=== PATIENT | male | born 1955 | race Caucasian/White ===

== ENCOUNTER 2018-10-29 20:08 | Emergency (ER) | payer OTHER, SELFPAY ==
[2018-10-29 20:09] VITALS: BP 164/99; PULSE 123; RESP 17; TEMP 34.2; O2SAT 96; BMI 37.4
--- NOTE | 2018-10-29 20:26 | CT_ITS ---
STUDY: CT BRAIN WITHOUT CONTRAST REASON FOR EXAM: Male, 63 years old. Fall with head laceration. RADIATION DOSAGE (If Supplied By Facility): CTDIvol = ( 44.99 ) mGy, DLP = ( 812.98 ) mGycm TECHNIQUE: Transaxial CT imaging of the brain was performed without administration of intravenous contrast material. Individualized dose optimization techniques were used for this CT. COMPARISON: Prior head CT exam of March 31, 2017 FINDINGS: Normal soft tissue structures. Normal calvarium. Old fracture deformity of the medial left orbital wall leaving a concave deformity. Normal size ventricles and extra-axial spaces for the patient's age. Normal white matter tracts of the cerebral hemispheres. Normal basal ganglia and thalami. Normal brainstem. Normal cerebellum. Carotid artery calcifications. There is no intracranial hemorrhage. There are no findings of an acute ischemic infarction. Normal visualized paranasal sinuses. CT/Brain/Head without Contrast IMPRESSION: No acute intracranial findings. Negative for hemorrhage, hematoma or mass density. Negative for skull fracture. Mild involutional changes and carotid artery calcification. Old fracture deformity of the left medial orbital wall. Electronically Signed: Griselda Jenkins MD at 20:54 EST , Service support ,
--- NOTE | 2018-10-29 21:38 | ED.DCSUM_ITS ---
- ER Visit Summary Date of Service: 10/29/18 Chief Complaint: Slipped and fell down icy steps with scalp laceration History of Present Illness: The patient is a 63 M history of noncemented diabetes, hypertension, COPD and anxiety. Patient was walking out of his trailer. The steps for IC. He slipped and fell backwards striking the posterior aspect of his scalp on an aluminum door. He is not on blood thinners besides aspirin. He denies any LOC. He has a mild comfort to the back of his head. He denies any significant back or neck pain. He denies any numbness or weakness to his upper or lower extremities. He said he hit his left lower lateral back but has had no hematuria. Patient states his tetanus is up-to-date. He has an appointment to see his doctor tomorrow and will check on that. Physical Examination: Well-appearing older male. Vital signs are stable. He is in no distress. H EENT exam pupils round reactive light. No facial trauma. Patient has about a 5 cm posterior lower scalp laceration. There is no significant bleeding. There is no step-off. It involves the skin and some of the subcu tissue. This will need to be repaired. Neck is nontender. Normal range of motion. Trachea midline. Lungs clear to auscultation. Heart regular rhythm chest wall nontender. No ecchymosis or bruising. No subcu air crepitance. Abdomen soft and nontender. No signs of trauma. No peritoneal signs. LV girdle intact. He is moving all 4 extremities. They are nontender. No deformity. 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 Dorsi plantar flexion intact. Back the cervical, thoracic and lumbar spine are all nontender. He has no bruising on his back. He has mild soft tissue tenderness just below his left ribs. There is no bruising. Neurologically is awake and alert. He is moving all 4 extremities. Is following commands. He is answering questions. He is acting appropriately. His Luis Miguel Coma Scale is 15. Test Results: CT of his brain shows no acute abnormality. There is an old left orbit fracture. However there is no acute skull fracture. No acute intracranial bleed. Read by the radiologist and reviewed by myself. Emergency Department Course and Treatment: Procedure note: Posterior scalp laceration 5 cm. Washed and cleaned by nurse. Washed by me with saline. Explored. Locally anesthetized with 2% Xylocaine. Closed using 7 interrupted jailyn. Patient tolerated procedure well. Repeat neurologic exam he is doing well at 2130. No change. Treatment Plan: Head injury instructions. [place] out in 10 days. Disposition: Discharge Impression: Slipped and fell with closed head injury 5 cm scalp laceration closed by ER using jailyn This note was generated with [employer] dictation software. It may contain incorrect words, spelling, and punctuation that were not noted in review of the chart prior to signing ED Disposition - Plan for ED Patient: Chief Complaint: Laceration Referrals: Amanda Gagnon MD [Primary Care Provider] -
--- NOTE | 2018-10-29 21:38 | ED.DEP ---
ED Disposition - Plan for ED Patient: Chief Complaint: Laceration Instructions: ED Head Injury Closed, ED Laceration Scalp Stitch Or Stap Referrals: Amanda Gagnon MD [Primary Care Provider] - 10 Day for suture removal Additional Instructions: Keep area clean. Ice to your scalp. Tylenol for pain. [place] out in 10 days. Return if severe headache, vomiting or weakness to your upper or lower extremities.
[2018-10-29 22:02] VITALS: BP 123/100; PULSE 87; RESP 14
--- OUTSIDE RECORDS SUMMARY | 2018-12-24 23:44 | XMS RPT_ITS ---
:1955 Author Organization OH[facility] Care Team Providers Name Role Phone TAYLOR, FABI D Referring Unavailable TALAMPAS, FABI D Referring Unavailable NAYE DAVE (PA) Attending Unavailable LYNDSEY SALINAS (FINANCIAL INVESTMENT ADVISER) Attending Unavailable TALAMPAS, FABI D Referring Unavailable TALAMPAS, FABI D Referring Unavailable TALAMPAS, FABI D Attending Unavailable TALAMPAS, FABI D Referring Unavailable TALAMPAS, FABI D Referring Unavailable TALAMPAS, FABI D Attending Unavailable TALAMPAS, FABI D Referring Unavailable TALAMPAS, FABI D Attending Unavailable LYNDSEY SALINAS (FINANCIAL INVESTMENT ADVISER) Attending Unavailable TALAMPAS, FABI D Referring Unavailable Alem Long Attending Unavailable Talampas, Fabi Primary Care Unavailable Talampas, Fabi Primary Care Unavailable Lowell Cisneros Attending Unavailable PROBLEMS PROBLEMS DATE TYPE CONDITION / CODE ATTENDING STATUS SOURCE 09/06/2015 Active Mixed hyperlipidemia NA Active [facility] / E78.2(ICD-10) [place] Repository 08/17/2018 Active Type 2 diabetes NA Active [facility] mellitus with [facility] [place] diabetic Repository polyneuropathy / E11.42(ICD-10) 02/22/2016 Active Chronic obstructive NA Active [facility] pulmonary disease, [place] unspecified / Repository J44.9(ICD-10) 10/30/2015 Active Essential (primary) NA Active [facility] hypertension / [place] I10(ICD-10) Repository 01/08/2018 Active Type 2 diabetes NA Active [facility] mellitus with [facility] [place] hyperglycemia / Repository E11.65(ICD-10) 01/08/2018 Active Other intermediate manager NA Active [facility] (current) drug [place] therapy / Repository Z79.899(ICD-10) PROCEDURES PROCEDURES No Procedure Records FoundRESULTS RESULTS PROGRESS Observed: 11/09/2018 Status: COMPLETED Source: [place] 3:51 PM [facility] RE[facility]IT[facility] HNO ID: [id number] Author: Lyndsey (Water Treatment Specialist) Brad Service: (none) Author Type: Nurse Specialist Type: Progress Notes Filed: 11/09/2018 4:02 PM Note Text: OUTPATIENT VISIT DATE November 09, 2018 OUTPATIENT VISIT TYPE ESTABLISHED PRIMARY CARE PHYSICIAN: Fabi Gagnon MD CHIEF COMPLAINT: Patient presents with: Hospital F/U History of Present Illness: Britney West is a 63 year old male who was last seen October 30, 2018 by Fabi Gagnon MD. He has been seen in the past for ACTIVE PROBLEM LIST Backache, Unspecified Copd With Chronic Bronchitis (Hcc) Degeneration of Lumbar Or Lumbosacral Intervertebral Disc Essential Hypertension Hyperlipidemia, Mixed Unspecified Sleep Apnea Hypertrophy of Prostate With Urinary Obstruction and Other Lower Urinary Tract Symptoms (Luts) Anxiety Metabolic Syndrome Diabetic Peripheral Neuropathy (Hcc) Pain Disorder With Psychological Component Reactive Depression Smoker Obesity (Bmi 30-39.9) He was seen at [facility] on October 29, 2018. Reports falling down icy steps and hitting his head. He fell backwards and struck the posterior aspect of the scalp on aluminum door. No loss of consciousness. Mild discomfort on the back of the head. No neck or head pain. No numbness or tingling in extremities is noted. No reported neurological deficits. He reports hitting his left lower back. Exam was unremarkable except for laceration on posterior aspect of his scalp approximately 5 cm in length. Cleansed in the ER with saline. 6 radiation completed. Locally anesthetized with 2% Xylocaine. Close using [address] brain showed no acute abnormality. Since the last visit, he states that he is feeling well. He is without focal neurological deficits, no vision or hearing difficulties, no difficulty moving extremities, no change in level of consciousness. Without headache. No drainage from the laceration is noted. No fever or chills. No recent hospital or ED visits. No new medical problems or medications. Able to obtain medications. No problems with taking medications or note side effects. PAST MEDICAL HISTORY Diagnosis Date - Alcohol abuse 2006(stopped) in remission - Benign neoplasm of colon - Carpal tunnel syndrome - Carpal tunnel syndrome, right 01/23/2012 - Cocaine abuse (HCC) 2006 (stopped) In remission - Degeneration of lumbar or lumbosacral intervertebral disc - Depressive disorder, not elsewhere classified - Dermatophytosis of foot 01/19/2008 - Diabetes mellitus type 2 in obese (HCC) - Family history of malignant neoplasm of gastrointestinal tract - Frequency of urination 05/24/2014 - Hemorrhage of gastrointestinal tract, unspecified - History of pancreatitis 05/10/2014 States no longer drinks. Hx pancreatic pseudocysts- CT 2010 - Hyperplasia of prostate - Lateral epicondylitis of both elbows 02/13/2015 - Obesity, Class III, BMI >= 40 (morbid obesity) E66.01 05/12/2017 - SAAD (obstructive sleep apnea) 2013 CPAP therapy - Other specified disorder of rectum and anus 12/05/2008 - PMH - PAST MEDICAL HISTORY OF macular degeration - PMH - PAST MEDICAL HISTORY OF CTS - Urinary retention 05/24/2014 PAST SURGICAL HISTORY Procedure Laterality Date - COLONOS W/REM POLYP SNARE 09/02/08 two small polyps rectum - ablated - COLONOSCOP W/ OR W/O [facility] SPEC 01/30/00 Colonoscopy - COLONOSCOP W/ OR W/O [facility] SPEC 08/06/2013 Colonoscopy - LAMINECTOMY,LUMBAR Laminectomy, lumbar - REMV CATARACT EXTRACAP,INSERT LENS Left 03/2015 Cataract Extraction with PC IOL - REVISE MEDIAN N/CARPAL TUNNEL SURG 2012 Carpal tunnel decomp left FAMILY HISTORY Problem Relation Age of Onset - Cancer Mother - Colon Cancer Father - Diabetes Father - Multiple Sclerosis Brother - Multiple Sclerosis Brother - Cancer Sister liver - Cancer Brother lung Social History Substance Use Topics - Smoking status: Current Every Day Smoker Packs/day: 2.00 Years: 43.00 Types: Cigarettes Start date: 12/01/1965 - Smokeless tobacco: Never Used Comment: STOPPED nicotine patch - Alcohol use No Comment: occasional ALLERGIES: ALLERGIES Allergen Reactions - Cipro [Ciprofloxaci* - Duloxetine Other: See Comments Caused severe Vertigo, increased his BS - Simvastatin Other: See Comments Myalgia. - Venlafaxine Other: See Comments Chewing on his tongue MEDICATIONS blood sugar diagnostic (ONETOUCH ULTRA TEST) test strip 1 Strip three times daily. Test blood sugar(s) 3 times daily. Dx: E11.65 Insulin: No. Uncontrolled/ fluctuating sugar. glipiZIDE (GLUCOTROL XL) 10mg 24 hr tablet Take 1 tablet by mouth once daily. buPROPion SR (WELLBUTRIN SR) 150 mg 12 hr tablet Take 1 tablet by mouth twice daily. umeclidinium-vilanterol (ANORO ELLIPTA) 62.5-25 mcg/actuation inhaler Inhale 1 Inhalation as instructed once daily. lisinopril (ZESTRIL, PRINIVIL) 10 mg tablet Take 1 tablet by mouth once daily. gabapentin (NEURONTIN) 300 mg capsule Take 1 capsule by mouth three times daily. cyclobenzaprine (FLEXERIL) 10 mg tablet Take 1 tablet by mouth three times daily as needed for Muscle Spasm. metFORMIN ER (GLUCOPHAGE XR) 500 mg 24 hr tablet 1000 mg at breakfast and supper VENTOLIN HFA 90 mcg/actuation inhaler Inhale 2 Puffs as instructed every 4 hours as needed. traMADol (ULTRAM) 50 mg tablet Take 1 tablet by mouth every 6 hours as needed for Pain. naproxen (NAPROSYN) 500 mg tablet Take 1 tablet by mouth twice daily with meals. Take with food. diazePAM (VALIUM) 5 mg tablet Take 1 tablet by mouth every 6 hours as needed. CPAP Initiate CPAP @ 17 cm of water with humidification. Mask (per patient preference) optional chin strap (if indicated) , filters, tubing, humidifier and lifetime supplies. multivitamin tablet Take 1 tablet by mouth once daily. Cholecalciferol, Vitamin D3, 5,000 unit cap Take 10,000 Units by mouth once daily. Lancets (ONE TOUCH ULTRASOFT LANCETS) lancets Test blood sugar(s) 1 times daily. Dx: 250.00, Insulin: No naftifine (NAFTIN) 2 % crea Apply 1 application to affected area once daily. Blood-Glucose Meter (ONE TOUCH ULTRA SYSTEM KIT) monitoring kit 1 Each three times daily. (For uncontrolled/variable sugars 250.02) REVIEW OF SYSTEMS: GENERAL: Negative for: Weight loss or gain, Fever or Chills, Weakness and Sleep difficulties. Physical Examination: BP 130/70 Pulse 100 Resp 16 Wt 253 lb (114.8kg) BP w/Orthostatic Vitals Date and Time Orthostatic BP Orthostatic Pulse BP Pulse BP Position BP Site BP Cuff Size 11/09/18 1518 -- -- 130/70 100 Sitting Left Arm Regular Adult Peak Flow Date and Time PF Resp 11/09/18 1518 -- 16 General appearance: Well appearing, alert, in no acute distress, well-hydrated, well nourished. Skin: Skin color, texture, turgor normal, no suspicious rashes _ well healed laceration posterior scalp 5 cm in length, [address], scab covers length, no surrounding erythema, warmth, drainage or tenderness to palpation Peripheral pulses: Normal Neuro: Gait normal. Sensation grossly intact. Reviewed chart, outside records, tests I personally interviewed, confirmed and edited the above information if obtained by others. TESTING: Glucose (mg/dL) Date Value 08/17/2018 115 Potassium (mmol/L) Date Value 08/17/2018 4.3 Sodium (mmol/L) Date Value 08/17/2018 139 Chloride (mmol/L) Date Value 08/17/2018 103 CO2 (mmol/L) Date Value 08/17/2018 21 Creatinine (mg/dL) Date Value 08/17/2018 0.85 BUN (mg/dL) Date Value 08/17/2018 17 Anion Gap (mmol/L) Date Value 08/17/2018 15 Calcium (mg/dL) Date Value 08/17/2018 9.0 Glucose (mg/dL) Date Value 08/17/2018 115 Potassium (mmol/L) Date Value 08/17/2018 4.3 Sodium (mmol/L) Date Value 08/17/2018 139 Chloride (mmol/L) Date Value 08/17/2018 103 CO2 (mmol/L) Date Value 08/17/2018 21 Creatinine (mg/dL) Date Value 08/17/2018 0.85 BUN (mg/dL) Date Value 08/17/2018 17 Anion Gap (mmol/L) Date Value 08/17/2018 15 Calcium (mg/dL) Date Value 08/17/2018 9.0 Protein, Total (g/dL) Date Value 08/17/2018 6.8 Albumin (g/dL) Date Value 08/17/2018 4.1 Bilirubin, Total (mg/dL) Date Value 08/17/2018 0.2 Alkaline Phosphatase (U/L) Date Value 08/17/2018 73 AST (U/L) Date Value 08/17/2018 27 ALT (U/L) Date Value 08/17/2018 36 Hemoglobin (g/dL) Date Value 02/24/2017 15.4 Hematocrit (%) Date Value 02/24/2017 48.0 WBC (k/uL) Date Value 02/24/2017 10.56 Cholesterol, Total (mg/dL) Date Value 08/30/2017 171 Total Cholesterol, Nonfasting (mg/dL) Date Value 08/17/2018 158 HDL Cholesterol (mg/dL) Date Value 08/30/2017 27 HDL Cholesterol, Nonfasting (mg/dL) Date Value 08/17/2018 28 LDL Cholesterol (mg/dL) Date Value 08/30/2017 110 LDL Cholesterol, Nonfasting (mg/dL) Date Value 08/17/2018 95 Triglyceride (mg/dL) Date Value 08/30/2017 170 Triglycerides, Nonfasting (mg/dL) Date Value 08/17/2018 173 Hemoglobin A1C Date Value Ref Range Status 08/17/2018 7.1 (H) 4.3 - 5.6 % Final 04/28/2018 7.0 (H) 4.3 - 5.6 % Final 01/08/2018 7.8 (H) 4.3 - 5.6 % Final 08/30/2017 11.0 (H) 4.3 - 5.6 % Final Comment: Stateless Diabetes Association guidelines indicate that patients with HgbA1c in the range 5.7-6.4% are at increased risk for development of diabetes, and intervention by lifestyle modification may be beneficial. HgbA1c greater or equal to 6.5% is considered diagnostic of diabetes. 05/09/2017 7.9 (H) 4.3 - 5.6 % Final Comment: Stateless Diabetes Association guidelines indicate that patients with HgbA1c in the range 5.7-6.4% are at increased risk for development of diabetes, and intervention by lifestyle modification may be beneficial. HgbA1c greater or equal to 6.5% is considered diagnostic of diabetes. Ejection Fraction: No results found IMPRESSION: Mr. West is a 63 year old man presents for staple removal posterior scalp After my examination and review of data, I make the following recommendations. PLAN AND RECOMMENDATIONS: 1. Laceration of scalp, subsequent encounter - ICD9: V58.89, 873.0, ICD10: S01.01XD Well healed. [place] removed without difficulty, tolerated well. No need for topical treatments such as antibacterial ointment. May wash and dry gently with shampoo and water He will let us know if any drainage, increased tenderness, fever. This is not expected to occur. Advised to go to ER if develops chest pain, shortness of breath, or severe worsening of symptoms. Discussed risks, benefits, alternatives, and potential side effects of medications. Mr. West expressed understanding and agreed with the plan. Lyndsey Salinas APRN.FINANCIAL INVESTMENT ADVISER CNOV Observed: 11/09/2018 Status: COMPLETED Source: [place] 3:[address] [facility] [place] RE[facility]IT[facility] Office Visit (INTMWS) BRITNEY WEST ([id number]) 1955 M NFR Date Time Provider Department 11/09/18 3:20 PM LYNDSEY SALINAS (FINANCIAL INVESTMENT ADVISER) INTMWS During your visit today, we recorded the following information about you: Pulse Respiration Blood pressure Weight 100/minute 16/minute 130/70 114.8 kg Lyndsey Salinas APRN.CNS 11/09/2018 4:02 PM Signed OUTPATIENT VISIT DATE November 09, 2018 OUTPATIENT VISIT TYPE ESTABLISHED PRIMARY CARE PHYSICIAN: Fabi Gagnon MD CHIEF COMPLAINT: Patient presents with: Hospital F/U History of Present Illness: Britney West is a 63 year old male who was last seen October 30, 2018 by Fabi Gagnon MD. He has been seen in the past for ACTIVE PROBLEM LIST Backache, Unspecified Copd With Chronic Bronchitis (Hcc) Degeneration of Lumbar Or Lumbosacral Intervertebral Disc Essential Hypertension Hyperlipidemia, Mixed Unspecified Sleep Apnea Hypertrophy of Prostate With Urinary Obstruction and Other Lower Urinary Tract Symptoms (Luts) Anxiety Metabolic Syndrome Diabetic Peripheral Neuropathy (Hcc) Pain Disorder With Psychological Component Reactive Depression Smoker Obesity (Bmi 30-39.9) He was seen at [facility] on October 29, 2018. Reports falling down icy steps and hitting his head. He fell backwards and struck the posterior aspect of the scalp on aluminum door. No loss of consciousness. Mild discomfort on the back of the head. No neck or head pain. No numbness or tingling in extremities is noted. No reported neurological deficits. He reports hitting his left lower back. Exam was unremarkable except for laceration on posterior aspect of his scalp approximately 5 cm in length. Cleansed in the ER with saline. 6 radiation completed. Locally anesthetized with 2% Xylocaine. Close using [address] brain showed no acute abnormality. Since the last visit, he states that he is feeling well. He is without focal neurological deficits, no vision or hearing difficulties, no difficulty moving extremities, no change in level of consciousness. Without headache. No drainage from the laceration is noted. No fever or chills. No recent hospital or ED visits. No new medical problems or medications. Able to obtain medications. No problems with taking medications or note side effects. PAST MEDICAL HISTORY Diagnosis Date - Alcohol abuse 2006(stopped) in remission - Benign neoplasm of colon - Carpal tunnel syndrome - Carpal tunnel syndrome, right 01/23/2012 - Cocaine abuse (HCC) 2006 (stopped) In remission - Degeneration of lumbar or lumbosacral intervertebral disc - Depressive disorder, not elsewhere classified - Dermatophytosis of foot 01/19/2008 - Diabetes mellitus type 2 in obese (HCC) - Family history of malignant neoplasm of gastrointestinal tract - Frequency of urination 05/24/2014 - Hemorrhage of gastrointestinal tract, unspecified - History of pancreatitis 05/10/2014 States no longer drinks. Hx pancreatic pseudocysts- CT 2010 - Hyperplasia of prostate - Lateral epicondylitis of both elbows 02/13/2015 - Obesity, Class III, BMI >= 40 (morbid obesity) E66.01 05/12/2017 - SAAD (obstructive sleep apnea) 2013 CPAP therapy - Other specified disorder of rectum and anus 12/05/2008 - PMH - PAST MEDICAL HISTORY OF macular degeration - PMH - PAST MEDICAL HISTORY OF CTS - Urinary retention 05/24/2014 PAST SURGICAL HISTORY Procedure Laterality Date - COLONOS W/REM POLYP SNARE 09/02/08 two small polyps rectum - ablated - COLONOSCOP W/ OR W/O [facility] SPEC 01/30/00 Colonoscopy - COLONOSCOP W/ OR W/O [facility] SPEC 08/06/2013 Colonoscopy - LAMINECTOMY,LUMBAR Laminectomy, lumbar - REMV CATARACT EXTRACAP,INSERT LENS Left 03/2015 Cataract Extraction with PC IOL - REVISE MEDIAN N/CARPAL TUNNEL SURG 2012 Carpal tunnel decomp left FAMILY HISTORY Problem Relation Age of Onset - Cancer Mother - Colon Cancer Father - Diabetes Father - Multiple Sclerosis Brother - Multiple Sclerosis Brother - Cancer Sister liver - Cancer Brother lung Social History Substance Use Topics - Smoking status: Current Every Day Smoker Packs/day: 2.00 Years: 43.00 Types: Cigarettes Start date: 12/01/1965 - Smokeless tobacco: Never Used Comment: STOPPED nicotine patch - Alcohol use No Comment: occasional ALLERGIES: ALLERGIES Allergen Reactions - Cipro [Ciprofloxaci* - Duloxetine Other: See Comments Caused severe Vertigo, increased his BS - Simvastatin Other: See Comments Myalgia. - Venlafaxine Other: See Comments Chewing on his tongue MEDICATIONS blood sugar diagnostic (ONETOUCH ULTRA TEST) test strip 1 Strip three times daily. Test blood sugar(s) 3 times daily. Dx: E11.65 Insulin: No. Uncontrolled/ fluctuating sugar. glipiZIDE (GLUCOTROL XL) 10mg 24 hr tablet Take 1 tablet by mouth once daily. buPROPion SR (WELLBUTRIN SR) 150 mg 12 hr tablet Take 1 tablet by mouth twice daily. umeclidinium-vilanterol (ANORO ELLIPTA) 62.5-25 mcg/actuation inhaler Inhale 1 Inhalation as instructed once daily. lisinopril (ZESTRIL, PRINIVIL) 10 mg tablet Take 1 tablet by mouth once daily. gabapentin (NEURONTIN) 300 mg capsule Take 1 capsule by mouth three times daily. cyclobenzaprine (FLEXERIL) 10 mg tablet Take 1 tablet by mouth three times daily as needed for Muscle Spasm. metFORMIN ER (GLUCOPHAGE XR) 500 mg 24 hr tablet 1000 mg at breakfast and supper VENTOLIN HFA 90 mcg/actuation inhaler Inhale 2 Puffs as instructed every 4 hours as needed. traMADol (ULTRAM) 50 mg tablet Take 1 tablet by mouth every 6 hours as needed for Pain. naproxen (NAPROSYN) 500 mg tablet Take 1 tablet by mouth twice daily with meals. Take with food. diazePAM (VALIUM) 5 mg tablet Take 1 tablet by mouth every 6 hours as needed. CPAP Initiate CPAP @ 17 cm of water with humidification. Mask (per patient preference) optional chin strap (if indicated) , filters, tubing, humidifier and lifetime supplies. multivitamin tablet Take 1 tablet by mouth once daily. Cholecalciferol, Vitamin D3, 5,000 unit cap Take 10,000 Units by mouth once daily. Lancets (ONE TOUCH ULTRASOFT LANCETS) lancets Test blood sugar(s) 1 times daily. Dx: 250.00, Insulin: No naftifine (NAFTIN) 2 % crea Apply 1 application to affected area once daily. Blood-Glucose Meter (ONE TOUCH ULTRA SYSTEM KIT) monitoring kit 1 Each three times daily. (For uncontrolled/variable sugars 250.02) REVIEW OF SYSTEMS: GENERAL: Negative for: Weight loss or gain, Fever or Chills, Weakness and Sleep difficulties. Physical Examination: BP 130/70 Pulse 100 Resp 16 Wt 253 lb (114.8kg) BP w/Orthostatic Vitals Date and Time Orthostatic BP Orthostatic Pulse BP Pulse BP Position BP Site BP Cuff Size 11/09/181517 -- -- 130/70 100 Sitting Left Arm Regular Adult Peak Flow Date and Time PF Resp 11/09/181517 -- 16 General appearance: Well appearing, alert, in no acute distress, well-hydrated, well nourished. Skin: Skin color, texture, turgor normal, no suspicious rashes _ well healed laceration posterior scalp 5 cm in length, [address], scab covers length, no surrounding erythema, warmth, drainage or tenderness to palpation Peripheral pulses: Normal Neuro: Gait normal. Sensation grossly intact. Reviewed chart, outside records, tests I personally interviewed, confirmed and edited the above information if obtained by others. TESTING: Glucose (mg/dL) Date Value 08/17/2018 115 Potassium (mmol/L) Date Value 08/17/2018 4.3 Sodium (mmol/L) Date Value 08/17/2018 139 Chloride (mmol/L) Date Value 08/17/2018 103 CO2 (mmol/L) Date Value 08/17/2018 21 Creatinine (mg/dL) Date Value 08/17/2018 0.85 BUN (mg/dL) Date Value 08/17/2018 17 Anion Gap (mmol/L) Date Value 08/17/2018 15 Calcium (mg/dL) Date Value 08/17/2018 9.0 Glucose (mg/dL) Date Value 08/17/2018 115 Potassium (mmol/L) Date Value 08/17/2018 4.3 Sodium (mmol/L) Date Value 08/17/2018 139 Chloride (mmol/L) Date Value 08/17/2018 103 CO2 (mmol/L) Date Value 08/17/2018 21 Creatinine (mg/dL) Date Value 08/17/2018 0.85 BUN (mg/dL) Date Value 08/17/2018 17 Anion Gap (mmol/L) Date Value 08/17/2018 15 Calcium (mg/dL) Date Value 08/17/2018 9.0 Protein, Total (g/dL) Date Value 08/17/2018 6.8 Albumin (g/dL) Date Value 08/17/2018 4.1 Bilirubin, Total (mg/dL) Date Value 08/17/2018 0.2 Alkaline Phosphatase (U/L) Date Value 08/17/2018 73 AST (U/L) Date Value 08/17/2018 27 ALT (U/L) Date Value 08/17/2018 36 Hemoglobin (g/dL) Date Value 02/24/2017 15.4 Hematocrit (%) Date Value 02/24/2017 48.0 WBC (k/uL) Date Value 02/24/2017 10.56 Cholesterol, Total (mg/dL) Date Value 08/30/2017 171 Total Cholesterol, Nonfasting (mg/dL) Date Value 08/17/2018 158 HDL Cholesterol (mg/dL) Date Value 08/30/2017 27 HDL Cholesterol, Nonfasting (mg/dL) Date Value 08/17/2018 28 LDL Cholesterol (mg/dL) Date Value 08/30/2017 110 LDL Cholesterol, Nonfasting (mg/dL) Date Value 08/17/2018 95 Triglyceride (mg/dL) Date Value 08/30/2017 170 Triglycerides, Nonfasting (mg/dL) Date Value 08/17/2018 173 Hemoglobin A1C Date Value Ref Range Status 08/17/2018 7.1 (H) 4.3 - 5.6 % Final 04/28/2018 7.0 (H) 4.3 - 5.6 % Final 01/08/2018 7.8 (H) 4.3 - 5.6 % Final 08/30/2017 11.0 (H) 4.3 - 5.6 % Final Comment: Stateless Diabetes Association guidelines indicate that patients with HgbA1c in the range 5.7-6.4% are at increased risk for development of diabetes, and intervention by lifestyle modification may be beneficial. HgbA1c greater or equal to 6.5% is considered diagnostic of diabetes. 05/09/2017 7.9 (H) 4.3 - 5.6 % Final Comment: Stateless Diabetes Association guidelines indicate that patients with HgbA1c in the range 5.7-6.4% are at increased risk for development of diabetes, and intervention by lifestyle modification may be beneficial. HgbA1c greater or equal to 6.5% is considered diagnostic of diabetes. Ejection Fraction: No results found IMPRESSION: Mr. West is a 63 year old man presents for staple removal posterior scalp After my examination and review of data, I make the following recommendations. PLAN AND RECOMMENDATIONS: 1. Laceration of scalp, subsequent encounter - ICD9: V58.89, 873.0, ICD10: S01.01XD Well healed. [place] removed without difficulty, tolerated well. No need for topical treatments such as antibacterial ointment. May wash and dry gently with shampoo and water He will let us know if any drainage, increased tenderness, fever. This is not expected to occur. Advised to go to ER if develops chest pain, shortness of breath, or severe worsening of symptoms. Discussed risks, benefits, alternatives, and potential side effects of medications. Mr. West expressed understanding and agreed with the plan. Lyndsey Salinas APRN.FINANCIAL INVESTMENT ADVISER Referring Provider: FABI GAGNON [[id number]] Allergies As of Date: 11/09/2018 Noted Allergy Reaction CIPRO (CIPROFLOXACIN) 02/27/2006 DULOXETINE 04/18/2017 14 - Other: See Comments Comments: Caused severe Vertigo, increased his BS SIMVASTATIN 07/05/2013 14 - Other: See Comments Comments: Myalgia. VENLAFAXINE 03/06/2015 14 - Other: See Comments Comments: Chewing on his tongue Date Reviewed: 11/09/2018 Reviewed by: Michaela Leggett LPN - Fully Assessed Reason for Visit: Hospital F/U [57] Primary Visit Diagnosis:Laceration of scalp, subsequent encounter [S01.01XD] Prescriptions as of 11/09/2018 Sig: BLOOD SUGAR DIAGNOSTIC STRIPS 1 Strip three times daily. Te* GLIPIZIDE ER 10 MG TABLET, EX* Take 1 tablet by mouth once d* BUPROPION HCL SR 150 MG TABLE* Take 1 tablet by mouth twice * UMECLIDINIUM 62.5 MCG-VILANTE* Inhale 1 Inhalation as instru* LISINOPRIL 10 MG TABLET Take 1 tablet by mouth once d* GABAPENTIN 300 MG CAPSULE Take 1 capsule by mouth three* CYCLOBENZAPRINE 10 MG TABLET Take 1 tablet by mouth three * METFORMIN ER 500 MG TABLET,EX* 1000 mg at breakfast and supp* VENTOLIN HFA 90 MCG/ACTUATION* Inhale 2 Puffs as instructed * TRAMADOL 50 MG TABLET Take 1 tablet by mouth every * NAPROXEN 500 MG TABLET Take 1 tablet by mouth twice * DIAZEPAM 5 MG TABLET Take 1 tablet by mouth every * CPAP Initiate CPAP @ 17 cm of wate* MULTIVITAMIN TABLET Take 1 tablet by mouth once d* CHOLECALCIFEROL (VITAMIN D3) * Take 10,000 Units by mouth on* LANCETS Test blood sugar(s) 1 times * NAFTIFINE 2 % TOPICAL CREAM Apply 1 application to affect* BLOOD-GLUCOSE METER KIT 1 Each three times daily. (Fo* Problem List As Of Date 11/09/2018 Noted Resolved BACKACHE NOS [M54.9] INVALID FOR* COPD with chronic bronchitis (HCC) [J44.9] INVALID FOR* LUMB/LUMBOSAC DISC DEGEN [M51.37] INVALID FOR* Other Abnormal Glucose [R73.09] INVALID FOR*07/06/2010 Thoracic or Lumbosacral Neuritis or Radiculitis*INVALID FOR*04/10/2010 Pain in Joint, Lower Leg [M25.569] INVALID FOR*04/10/2010 Essential hypertension [I10] INVALID FOR* Hyperlipidemia, mixed [E78.2] INVALID FOR* More... SLEEP APNEA NOS [G47.30] INVALID FOR* Pruritus Ani [L29.0] INVALID FOR*04/10/2010 Anal or Rectal Pain [K62.89] INVALID FOR*04/10/2010 Other Symptoms Involving Digestive System [R19.*INVALID FOR*04/10/2010 Blood in Stool [K92.1] INVALID FOR*04/10/2010 BPH W URINARY OBS/LUTS [N40.1] INVALID FOR* Anxiety [F41.9] INVALID FOR* Metabolic Syndrome [E88.81] INVALID FOR* Abnormal CXR (chest x-ray) [R93.89] INVALID FOR*01/06/2012 Syncope [R55] INVALID FOR*01/06/2012 Carpal tunnel syndrome, left [G56.02] INVALID FOR*02/24/2012 Diabetic peripheral neuropathy [E11.42] INVALID FOR* Diabetes mellitus type 2, uncontrolled, without*INVALID FOR*10/30/2018 More... Pain disorder with psychological component [F45*INVALID FOR* Reactive depression [F32.9] INVALID FOR* Smoker [F17.200] INVALID FOR* Obesity (BMI 30-39.9) [E66.9] INVALID FOR* Encounter Status:Closed by LYNDSEY PUCKETT on 11/09/18 PROGRESS Observed: 10/30/2018 Status: COMPLETED Source: [facility] 4:24 PM [facility] HNO ID: [id number] Author: Fabi Gagnon Service: (none) Author Type: Physician Type: Progress Notes Filed: 11/15/2018 10:03 PM Note Text: Patient presents with: Recheck: Follow up SUBJECTIVE: Britney West is a 63 year old year old gentleman here today for 3 month follow up appointment for review of medical conditions. Laceration scalp. Hurts right lateral abdomen (below ribs) Depression issues. Tearful more easily--able to be okay in a couple minutes. Emotional. A little better with motivation to get things done now. Sleep 6 to 7 hours of sleep. Has to get up 4AM. Long weeks. Able to fall asleep well. PAST MEDICAL HISTORY Diagnosis Date - Alcohol abuse 2006(stopped) in remission - Benign neoplasm of colon - Carpal tunnel syndrome - Carpal tunnel syndrome, right 01/23/2012 - Cocaine abuse (HCC) 2006 (stopped) In remission - Degeneration of lumbar or lumbosacral intervertebral disc - Depressive disorder, not elsewhere classified - Dermatophytosis of foot 01/19/2008 - Diabetes mellitus type 2 in obese (HCC) - Family history of malignant neoplasm of gastrointestinal tract - Frequency of urination 05/24/2014 - Hemorrhage of gastrointestinal tract, unspecified - History of pancreatitis 05/10/2014 States no longer drinks. Hx pancreatic pseudocysts- CT 2010 - Hyperplasia of prostate - Lateral epicondylitis of both elbows 02/13/2015 - Obesity, Class III, BMI >= 40 (morbid obesity) E66.01 05/12/2017 - SAAD (obstructive sleep apnea) 2013 CPAP therapy - Other specified disorder of rectum and anus 12/05/2008 - PMH - PAST MEDICAL HISTORY OF macular degeration - PMH - PAST MEDICAL HISTORY OF CTS - Urinary retention 05/24/2014 Current Outpatient Prescriptions: glipiZIDE (GLUCOTROL XL) 10mg 24 hr tablet Take 1 tablet by mouth once daily. buPROPion SR (WELLBUTRIN SR) 150 mg 12 hr tablet Take 1 tablet by mouth twice daily. umeclidinium-vilanterol (ANORO ELLIPTA) 62.5-25 mcg/actuation inhaler Inhale 1 Inhalation as instructed once daily. lisinopril (ZESTRIL, PRINIVIL) 10 mg tablet Take 1 tablet by mouth once daily. gabapentin (NEURONTIN) 300 mg capsule Take 1 capsule by mouth three times daily. cyclobenzaprine (FLEXERIL) 10 mg tablet Take 1 tablet by mouth three times daily as needed for Muscle Spasm. metFORMIN ER (GLUCOPHAGE XR) 500 mg 24 hr tablet 1000 mg at breakfast and supper VENTOLIN HFA 90 mcg/actuation inhaler Inhale 2 Puffs as instructed every 4 hours as needed. traMADol (ULTRAM) 50 mg tablet Take 1 tablet by mouth every 6 hours as needed for Pain. naproxen (NAPROSYN) 500 mg tablet Take 1 tablet by mouth twice daily with meals. Take with food. diazePAM (VALIUM) 5 mg tablet Take 1 tablet by mouth every 6 hours as needed. blood sugar diagnostic (ONETOUCH ULTRA TEST) test strip 1 Strip three times daily. Test blood sugar(s) 3 times daily. Dx: E11.65 Insulin: No. Uncontrolled/ fluctuating sugar. CPAP Initiate CPAP @ 17 cm of water with humidification. Mask (per patient preference) optional chin strap (if indicated) , filters, tubing, humidifier and lifetime supplies. multivitamin tablet Take 1 tablet by mouth once daily. Cholecalciferol, Vitamin D3, 5,000 unit cap Take 10,000 Units by mouth once daily. Lancets (ONE TOUCH ULTRASOFT LANCETS) lancets Test blood sugar(s) 1 times daily. Dx: 250.00, Insulin: No naftifine (NAFTIN) 2 % crea Apply 1 application to affected area once daily. Blood-Glucose Meter (ONE TOUCH ULTRA SYSTEM KIT) monitoring kit 1 Each three times daily. (For uncontrolled/variable sugars 250.02) No current facility-administered medications for this visit. OBJECTIVE: BP 148/72 Pulse 68 Resp 20 Wt 113.4 kg (250 lb) BMI 38.01 kg/m? Patient is alert, oriented times 3, no apparent distress, affect is bright, reactive. Last 5 Encounter BP Readings: Date: BP: 10/30/2018 148/72 08/19/2018 108/60 05/05/2018 120/64 02/27/2018 132/72 02/16/2018 132/76 Last 5 Encounter Wt Readings: Date: Wt: 10/30/2018 113.4 kg (250 lb) 08/19/2018 112.5 kg (248 lb) 05/05/2018 113.9 kg (251 lb) 02/27/2018 115.2 kg (254 lb) 02/16/2018 116.6 kg (257 lb) Heart: Regular rate, rhythm, no murmurs, gallops, rubs. Lungs: Clear to auscultation, bilaterally, breathing non labored. Ext: No cyanosis, clubbing, or edema. Scalp: laceration healing well; no signs of infection. Right parietal area. Rj intact. Component Latest Ref Rng AND Units 08/30/2017 10/15/2017 01/08/2018 04/28/2018 08/17/2018 Protein, Total 6.3 - 8.0 g/dL 6.9 6.9 7.4 6.8 Albumin 3.9 - 4.9 g/dL 4.3 4.2 4.6 4.1 Calcium 8.5 - 10.2 mg/dL 9.0 9.0 9.4 9.0 Bilirubin, Total 0.2 - 1.3 mg/dL 0.3 0.2 0.3 0.2 Alkaline Phosphatase 36 - 108 U/L 84 69 66 73 AST 14 - 40 U/L 24 24 26 27 Glucose 74 - 99 mg/dL 319 (H) 113 (H) 116 (H) 115 (H) BUN 9 - 24 mg/dL 16 14 17 17 Creatinine 0.73 - 1.22 mg/dL 0.78 0.83 0.97 0.85 Sodium 136 - 144 mmol/L 137 141 138 139 Potassium 3.7 - 5.1 mmol/L 4.7 3.9 4.4 4.3 Chloride 97 - 105 mmol/L 97 99 99 103 CO2 22 - 30 mmol/L 24 27 22 21 (L) Anion Gap 9 - 18 mmol/L 16 15 17 15 ALT 10 - 54 U/L 50 41 37 36 eGFR- >60 >60 >60 >60 eGFR-All Other Races . >60 >60 >60 >60 Color Yellow Yellow Clarity Clear Clear Glucose, Urine Negative mg/dL 150 (A) Bilirubin, Urine Negative Negative Ketones, Urine Negative Negative Specific [place], Ur 1.005 - 1.030 1.017 Hemoglobin/Blood,Ur Negative Negative pH, Urine 4.5 - 8.0 5.0 Protein, Urine Negative mg/dL Negative Urobilinogen Normal Normal Nitrites Negative Negative Leukest Negative Negative Comments SEE COMMENT Urine Stephan Comment SEE COMMENT WBC, Urine 0 - 5 /HPF 0-5 RBC, Urine 0 - 3 /HPF 0-3 Epithelial Cells /HPF SEE COMMENT Triglyceride 30 - 149 mg/dL 170 (H) Cholesterol, Total 100 - 199 mg/dL 171 HDL Cholesterol >45 mg/dL 27 (L) VLDL Cholesterol 6 - 40 mg/dL 34 LDL Cholesterol 60 - 129 mg/dL 110 Fasting Time hrs 14 TC:HDL Ratio 1.00 - 5.00 6.33 (H) LDL:HDL Ratio 0.50 - 3.55 4.07 (H) Non HDL Cholesterol 90 - 159 mg/dL 144 Total Cholesterol, Nonfasting <200 mg/dL 158 Triglycerides, Nonfasting <150 mg/dL 173 (H) HDL Cholesterol, Nonfasting >39 mg/dL 28 (L) LDL Cholesterol, Nonfasting <100 mg/dL 95 Non HDL Cholesterol, Nonfasting <130 mg/dL 130 (H) VLDL Cholesterol, Nonfasting <30 mg/dL 35 (H) Total Chol/HDL Ratio, Nonfasting <5.10 mg/dL 5.64 (H) LDL/HDL Ratio, Nonfasting <2.54 mg/dL 3.39 (H) Creatinine, Ur Random (UCRR) 20 - 300 mg/dL 69.2 Albumin, Urine Random 0.0 - 23.0 mg/L <12.0 Albumin/Creat Ratio 0 - 30 mg/g Not calculated Hemoglobin A1C 4.3 - 5.6 % 11.0 (H) 7.8 (H) 7.0 (H) 7.1 (H) Estimated Average Glucose mg/dL >240 177 154 157 ASSESSMENT AND PLAN: Encounter Diagnosis ICD-10-CM 1. Type 2 diabetes mellitus without complication, without long-term current use of insulin (HCC) E11.9 blood sugar diagnostic (ONETOUCH ULTRA TEST) test strip HGB A1C COMP METABOLIC PANEL 2. Laceration of scalp, subsequent encounter S01.01XD 3. Reactive depression F32.9 4. Essential hypertension I10 COMP METABOLIC PANEL CBC 5. Hyperlipidemia, mixed E78.2 LIPID PANEL BASIC Patient here for 3 month FU but had a fall yesterday and had to have laceration treated in ER--rj. Wound healing well. Will need to return to have rj removed. Stable on current meds and management for DM, BP and lipids. Continue present management. Further evaluation and treatment as indicated. Above issues addressed with patient. Patient involved in shared decision making for management of medical issues. History and medications reviewed. Epic updated as needed Refills taken care of and meds adjusted as indicated after reviewed history, exam and labs. Health Maintenance reviewed. Updated record and/or ordered tests as recorded. Encouraged on efforts at healthy diet and regular exercise and adequate sleep. Needs to keep working on diet and exercise with lifestyle changes for effective weight loss as well as control of DM, and control of BP and lipids. Noted depression symptoms worse lately as noted in HPI. Emotional support given. Noted issues with work, long hours, finances, etc. The majority of the visit was spent counseling and/or coordinating care for the patient. Jqui-wq-wkno time was at least 25 minutes. MD Fabi Gunter MD CNOV Observed: 10/30/2018 Status: COMPLETED Source: [place] 3:[address] [facility] [place] REPOSIT[facility] Office Visit (INTMWS) BRITNEY WEST ([id number]) 1955 M NFR Date Time Provider Department 10/30/18 3:40 PM [facility] GAGNON INTMWS During your visit today, we recorded the following information about you: Pulse Respiration Blood pressure Weight 68/minute 20/minute 148/72 113.4 kg Fabi Gagnon MD 11/15/2018 10:03 PM Signed Patient presents with: Recheck: Follow up SUBJECTIVE: Britney West is a 63 year old year old gentleman here today for 3 month follow up appointment for review of medical conditions. Laceration scalp. Hurts right lateral abdomen (below ribs) Depression issues. Tearful more easily--able to be okay in a couple minutes. Emotional. A little better with motivation to get things done now. Sleep 6 to 7 hours of sleep. Has to get up 4AM. Long weeks. Able to fall asleep well. PAST MEDICAL HISTORY Diagnosis Date - Alcohol abuse 2006(stopped) in remission - Benign neoplasm of colon - Carpal tunnel syndrome - Carpal tunnel syndrome, right 01/23/2012 - Cocaine abuse (HCC) 2006 (stopped) In remission - Degeneration of lumbar or lumbosacral intervertebral disc - Depressive disorder, not elsewhere classified - Dermatophytosis of foot 01/19/2008 - Diabetes mellitus type 2 in obese (HCC) - Family history of malignant neoplasm of gastrointestinal tract - Frequency of urination 05/24/2014 - Hemorrhage of gastrointestinal tract, unspecified - History of pancreatitis 05/10/2014 States no longer drinks. Hx pancreatic pseudocysts- CT 2010 - Hyperplasia of prostate - Lateral epicondylitis of both elbows 02/13/2015 - Obesity, Class III, BMI >= 40 (morbid obesity) E66.01 05/12/2017 - SAAD (obstructive sleep apnea) 2013 CPAP therapy - Other specified disorder of rectum and anus 12/05/2008 - PMH - PAST MEDICAL HISTORY OF macular degeration - PMH - PAST MEDICAL HISTORY OF CTS - Urinary retention 05/24/2014 Current Outpatient Prescriptions: glipiZIDE (GLUCOTROL XL) 10mg 24 hr tablet Take 1 tablet by mouth once daily. buPROPion SR (WELLBUTRIN SR) 150 mg 12 hr tablet Take 1 tablet by mouth twice daily. umeclidinium-vilanterol (ANORO ELLIPTA) 62.5-25 mcg/actuation inhaler Inhale 1 Inhalation as instructed once daily. lisinopril (ZESTRIL, PRINIVIL) 10 mg tablet Take 1 tablet by mouth once daily. gabapentin (NEURONTIN) 300 mg capsule Take 1 capsule by mouth three times daily. cyclobenzaprine (FLEXERIL) 10 mg tablet Take 1 tablet by mouth three times daily as needed for Muscle Spasm. metFORMIN ER (GLUCOPHAGE XR) 500 mg 24 hr tablet 1000 mg at breakfast and supper VENTOLIN HFA 90 mcg/actuation inhaler Inhale 2 Puffs as instructed every 4 hours as needed. traMADol (ULTRAM) 50 mg tablet Take 1 tablet by mouth every 6 hours as needed for Pain. naproxen (NAPROSYN) 500 mg tablet Take 1 tablet by mouth twice daily with meals. Take with food. diazePAM (VALIUM) 5 mg tablet Take 1 tablet by mouth every 6 hours as needed. blood sugar diagnostic (LoganTOUCH ULTRA TEST) test strip 1 Strip three times daily. Test blood sugar(s) 3 times daily. Dx: E11.65 Insulin: No. Uncontrolled/ fluctuating sugar. CPAP Initiate CPAP @ 17 cm of water with humidification. Mask (per patient preference) optional chin strap (if indicated) , filters, tubing, humidifier and lifetime supplies. multivitamin tablet Take 1 tablet by mouth once daily. Cholecalciferol, Vitamin D3, 5,000 unit cap Take 10,000 Units by mouth once daily. Lancets (ONE TOUCH ULTRASOFT LANCETS) lancets Test blood sugar(s) 1 times daily. Dx: 250.00, Insulin: No naftifine (NAFTIN) 2 % crea Apply 1 application to affected area once daily. Blood-Glucose Meter (ONE TOUCH ULTRA SYSTEM KIT) monitoring kit 1 Each three times daily. (For uncontrolled/variable sugars 250.02) No current facility-administered medications for this visit. OBJECTIVE: BP 148/72 Pulse 68 Resp 20 Wt 113.4 kg (250 lb) BMI 38.01 kg/m? Patient is alert, oriented times 3, no apparent distress, affect is bright, reactive. Last 5 Encounter BP Readings: Date: BP: 10/30/2018 148/72 08/19/2018 108/60 05/05/2018 120/64 02/27/2018 132/72 02/16/2018 132/76 Last 5 Encounter Wt Readings: Date: Wt: 10/30/2018 113.4 kg (250 lb) 08/19/2018 112.5 kg (248 lb) 05/05/2018 113.9 kg (251 lb) 02/27/2018 115.2 kg (254 lb) 02/16/2018 116.6 kg (257 lb) Heart: Regular rate, rhythm, no murmurs, gallops, rubs. Lungs: Clear to auscultation, bilaterally, breathing non labored. Ext: No cyanosis, clubbing, or edema. Scalp: laceration healing well; no signs of infection. Right parietal area. [place] intact. Component Latest Ref Rng AND Units 08/30/2017 10/15/2017 01/08/2018 04/28/2018 08/17/2018 Protein, Total 6.3 - 8.0 g/dL 6.9 6.9 7.4 6.8 Albumin 3.9 - 4.9 g/dL 4.3 4.2 4.6 4.1 Calcium 8.5 - 10.2 mg/dL 9.0 9.0 9.4 9.0 Bilirubin, Total 0.2 - 1.3 mg/dL 0.3 0.2 0.3 0.2 Alkaline Phosphatase 36 - 108 U/L 84 69 66 73 AST 14 - 40 U/L 24 24 26 27 Glucose 74 - 99 mg/dL 319 (H) 113 (H) 116 (H) 115 (H) BUN 9 - 24 mg/dL 16 14 17 17 Creatinine 0.73 - 1.22 mg/dL 0.78 0.83 0.97 0.85 Sodium 136 - 144 mmol/L 137 141 138 139 Potassium 3.7 - 5.1 mmol/L 4.7 3.9 4.4 4.3 Chloride 97 - 105 mmol/L 97 99 99 103 CO2 22 - 30 mmol/L 24 27 22 21 (L) Anion Gap 9 - 18 mmol/L 16 15 17 15 ALT 10 - 54 U/L 50 41 37 36 eGFR- >60 >60 >60 >60 eGFR-All Other Races . >60 >60 >60 >60 Color Yellow Yellow Clarity Clear Clear Glucose, Urine Negative mg/dL 150 (A) Bilirubin, Urine Negative Negative Ketones, Urine Negative Negative Specific [place], Ur 1.005 - 1.030 1.017 Hemoglobin/Blood,Ur Negative Negative pH, Urine 4.5 - 8.0 5.0 Protein, Urine Negative mg/dL Negative Urobilinogen Normal Normal Nitrites Negative Negative Leukest Negative Negative Comments SEE COMMENT Urine Stephan Comment SEE COMMENT WBC, Urine 0 - 5 /HPF 0-5 RBC, Urine 0 - 3 /HPF 0-3 Epithelial Cells /HPF SEE COMMENT Triglyceride 30 - 149 mg/dL 170 (H) Cholesterol, Total 100 - 199 mg/dL 171 HDL Cholesterol >45 mg/dL 27 (L) VLDL Cholesterol 6 - 40 mg/dL 34 LDL Cholesterol 60 - 129 mg/dL 110 Fasting Time hrs 14 TC:HDL Ratio 1.00 - 5.00 6.33 (H) LDL:HDL Ratio 0.50 - 3.55 4.07 (H) Non HDL Cholesterol 90 - 159 mg/dL 144 Total Cholesterol, Nonfasting <200 mg/dL 158 Triglycerides, Nonfasting <150 mg/dL 173 (H) HDL Cholesterol, Nonfasting >39 mg/dL 28 (L) LDL Cholesterol, Nonfasting <100 mg/dL 95 Non HDL Cholesterol, Nonfasting <130 mg/dL 130 (H) VLDL Cholesterol, Nonfasting <30 mg/dL 35 (H) Total Chol/HDL Ratio, Nonfasting <5.10 mg/dL 5.64 (H) LDL/HDL Ratio, Nonfasting <2.54 mg/dL 3.39 (H) Creatinine, Ur Random (UCRR) 20 - 300 mg/dL 69.2 Albumin, Urine Random 0.0 - 23.0 mg/L <12.0 Albumin/Creat Ratio 0 - 30 mg/g Not calculated Hemoglobin A1C 4.3 - 5.6 % 11.0 (H) 7.8 (H) 7.0 (H) 7.1 (H) Estimated Average Glucose mg/dL >240 177 154 157 ASSESSMENT AND PLAN: Encounter Diagnosis ICD-10-CM 1. Type 2 diabetes mellitus without complication, without long-term current use of insulin (HCC) E11.9 blood sugar diagnostic (ONETOUCH ULTRA TEST) test strip HGB A1C COMP METABOLIC PANEL 2. Laceration of scalp, subsequent encounter S01.01XD 3. Reactive depression F32.9 4. Essential hypertension I10 COMP METABOLIC PANEL CBC 5. Hyperlipidemia, mixed E78.2 LIPID PANEL BASIC Patient here for 3 month FU but had a fall yesterday and had to have laceration treated in ER--rj. Wound healing well. Will need to return to have rj removed. Stable on current meds and management for DM, BP and lipids. Continue present management. Further evaluation and treatment as indicated. Above issues addressed with patient. Patient involved in shared decision making for management of medical issues. History and medications reviewed. Epic updated as needed Refills taken care of and meds adjusted as indicated after reviewed history, exam and labs. Health Maintenance reviewed. Updated record and/or ordered tests as recorded. Encouraged on efforts at healthy diet and regular exercise and adequate sleep. Needs to keep working on diet and exercise with lifestyle changes for effective weight loss as well as control of DM, and control of BP and lipids. Noted depression symptoms worse lately as noted in HPI. Emotional support given. Noted issues with work, long hours, finances, etc. The majority of the visit was spent counseling and/or coordinating care for the patient. Itir-gd-zves time was at least 25 minutes. MD Fabi Gunter MD Referring Provider: SELF [[id number]] Allergies As of Date: 10/30/2018 Noted Allergy Reaction CIPRO (CIPROFLOXACIN) 02/27/2006 DULOXETINE 04/18/2017 14 - Other: See Comments Comments: Caused severe Vertigo, increased his BS SIMVASTATIN 07/05/2013 14 - Other: See Comments Comments: Myalgia. VENLAFAXINE 03/06/2015 14 - Other: See Comments Comments: Chewing on his tongue Date Reviewed: 10/30/2018 Reviewed by: Xochitl Greene LPN - Fully Assessed Reason for Visit: Recheck [92] Cmt: Follow up Primary Visit Diagnosis:Type 2 diabetes mellitus without complication, without long-term current use of insulin (HCC) [E11.9] Other Visit Diagnoses:Laceration of scalp, subsequent encounter [S01.01XD] Reactive depression [F32.9] Essential hypertension [I10] Hyperlipidemia, mixed [E78.2] Order(s):blood sugar diagnostic (ONETOUCH ULTRA TEST) test strip1 Strip three times daily. Test blood sugar(s) 3 times daily. Dx: E11.65 Insulin: No. Uncontrolled/ fluctuating sugar.Disp: 300 StripRfl: 1 HGB A1C [[id number]] Order #: [id number] FUTURE LIPID PANEL BASIC [SQLIPB] Order #: [id number] FUTURE COMP METABOLIC PANEL [SQCMP] Order #: [id number] FUTURE CBC [SQCBC] Order #: [id number] FUTURE Prescriptions as of 10/30/2018 Sig: BLOOD-GLUCOSE METER KIT 1 Each three times daily. (Fo* BUPROPION HCL SR 150 MG TABLE* Take 1 tablet by mouth twice * CHOLECALCIFEROL (VITAMIN D3) * Take 10,000 Units by mouth on* CPAP Initiate CPAP @ 17 cm of wate* CYCLOBENZAPRINE 10 MG TABLET Take 1 tablet by mouth three * DIAZEPAM 5 MG TABLET Take 1 tablet by mouth every * GABAPENTIN 300 MG CAPSULE Take 1 capsule by mouth three* GLIPIZIDE ER 10 MG TABLET, EX* Take 1 tablet by mouth once d* LANCETS Test blood sugar(s) 1 times * LISINOPRIL 10 MG TABLET Take 1 tablet by mouth once d* METFORMIN ER 500 MG TABLET,EX* 1000 mg at breakfast and supp* MULTIVITAMIN TABLET Take 1 tablet by mouth once d* NAFTIFINE 2 % TOPICAL CREAM Apply 1 application to affect* NAPROXEN 500 MG TABLET Take 1 tablet by mouth twice * TRAMADOL 50 MG TABLET Take 1 tablet by mouth every * UMECLIDINIUM 62.5 MCG-VILANTE* Inhale 1 Inhalation as instru* VENTOLIN HFA 90 MCG/ACTUATION* Inhale 2 Puffs as instructed * BLOOD SUGAR DIAGNOSTIC STRIPS 1 Strip three times daily. Te* Problem List As Of Date 10/30/2018 Noted Resolved BACKACHE NOS [M54.9] INVALID FOR* COPD with chronic bronchitis (HCC) [J44.9] INVALID FOR* LUMB/LUMBOSAC DISC DEGEN [M51.37] INVALID FOR* Other Abnormal Glucose [R73.09] INVALID FOR*07/06/2010 Thoracic or Lumbosacral Neuritis or Radiculitis*INVALID FOR*04/10/2010 Pain in Joint, Lower Leg [M25.569] INVALID FOR*04/10/2010 Essential hypertension [I10] INVALID FOR* Hyperlipidemia, mixed [E78.2] INVALID FOR* More... SLEEP APNEA NOS [G47.30] INVALID FOR* Pruritus Ani [L29.0] INVALID FOR*04/10/2010 Anal or Rectal Pain [K62.89] INVALID FOR*04/10/2010 Other Symptoms Involving Digestive System [R19.*INVALID FOR*04/10/2010 Blood in Stool [K92.1] INVALID FOR*04/10/2010 BPH W URINARY OBS/LUTS [N40.1] INVALID FOR* Anxiety [F41.9] INVALID FOR* Metabolic Syndrome [E88.81] INVALID FOR* Abnormal CXR (chest x-ray) [R93.89] INVALID FOR*01/06/2012 Syncope [R55] INVALID FOR*01/06/2012 Carpal tunnel syndrome, left [G56.02] INVALID FOR*02/24/2012 Diabetic peripheral neuropathy [E11.42] INVALID FOR* Diabetes mellitus type 2, uncontrolled, without*INVALID FOR*10/30/2018 More... Pain disorder with psychological component [F45*INVALID FOR* Reactive depression [F32.9] INVALID FOR* Smoker [F17.200] INVALID FOR* Obesity (BMI 30-39.9) [E66.9] INVALID FOR* Prescriptions ordered this encounter Disp Refills Start End BLOOD SUGAR DIAGNOSTIC STRIPS 300 * 1 10/30/2018 Route: Misc Si Strip three times daily. Test blood sugar(s) 3 times daily. Dx: E11.65 Insulin: No. Uncontrolled/ fluctuating sugar. Medications Discontinued During This Encounter blood sugar diagnostic (ONETOUCH ULT* 300 * 1 06/30/2017 10/30/2018 Route: Miscell. (Med.Supl.;Non-Drugs) Si Strip three times daily. Test blood sugar(s) 3 times daily. Dx: E11.65 Insulin: No. Uncontrolled/ fluctuating sugar. Disc: Reason for discontinue is not on file. Disposition: Return for As scheduled. Follow-up and Disposition History Recorded Encounter Status:Closed by FABI GAGNON MD on 11/15/18 EMERGENCY DEPARTMENT Observed: 10/29/2018 Status: F Source: [place] SUMMARY 11:54 PM [facility] [place] [facility] Medical Records Department [address] [place] [address] Emergency Department Summary 10/29/18 2134 MR#: [id number] Acct: [id number] Name: BRITNEY WEST Rep #: [id number] : 1955 63 From: Lowell Cisneros MD PCP: Fabi Gagnon MD Status: DEP ER - ER Visit Summary Date of Service: 10/29/18 Chief Complaint: Slipped and fell down icy steps with scalp laceration History of Present Illness: The patient is a 63 M history of noncemented diabetes, hypertension, COPD and anxiety. Patient was walking out of his trailer. The steps for IC. He slipped and fell backwards striking the posterior aspect of his scalp on an aluminum door. He is not on blood thinners besides aspirin. He denies any LOC. He has a mild comfort to the back of his head. He denies any significant back or neck pain. He denies any numbness or weakness to his upper or lower extremities. He said he hit his left lower lateral back but has had no hematuria. Patient states his tetanus is up-to-date. He has an appointment to see his doctor tomorrow and will check on that. Physical Examination: Well-appearing older male. Vital signs are stable. He is in no distress. H EENT exam pupils round reactive light. No facial trauma. Patient has about a 5 cm posterior lower scalp laceration. There is no significant bleeding. There is no step-off. It involves the skin and some of the subcu tissue. This will need to be repaired. Neck is nontender. Normal range of motion. Trachea midline. Lungs clear to auscultation. Heart regular rhythm chest wall nontender. No ecchymosis or bruising. No subcu air crepitance. Abdomen soft and nontender. No signs of trauma. No peritoneal signs. LV girdle intact. He is moving all 4 extremities. They are nontender. No deformity. 5 out of 5 ed transporter strength. Dorsi plantar flexion intact. Back the cervical, thoracic and lumbar spine are all nontender. He has no bruising on his back. He has mild soft tissue tenderness just below his left ribs. There is no bruising. Neurologically is awake and alert. He is moving all 4 extremities. Is following commands. He is answering questions. He is acting appropriately. His [place] Coma Scale is 15. Test Results: CT of his brain shows no acute abnormality. There is an old left orbit fracture. However there is no acute skull fracture. No acute intracranial bleed. Read by the radiologist and reviewed by myself. Emergency Department Course and Treatment: Procedure note: Posterior scalp laceration 5 cm. Washed and cleaned by nurse. Washed by me with saline. Explored. Locally anesthetized with 2% Xylocaine. Closed using 7 interrupted rj. Patient tolerated procedure well. Repeat neurologic exam he is doing well at 2130. No change. Treatment Plan: Head injury instructions. [place] out in 10 days. Disposition: Discharge Impression: Slipped and fell with closed head injury 5 cm scalp laceration closed by ER using rj This note was generated with [employer] dictation software. It may contain incorrect words, spelling, and punctuation that were not noted in review of the chart prior to signing ED Disposition - Plan for ED Patient: Chief Complaint: Laceration Referrals: Fabi Gagnon MD [Primary Care Provider] - What to do if you have Problems For any increased pain, shortness of breath, bleeding, nausea or vomiting, chest pain, or any unexpected problems, contact your Primary Care Provider. Call [employer] [facility] ([phone]) or report to the closest Emergency Room. Call 911 if necessary. 10/29/18 1592 <Electronically signed by Lowell Cisneros MD> Date Lowell Cisneros MD Cosigner Signature (If Indicated): Date CC: Fabi Gagnon MD DISCHARGE INSTRUCTION Observed: 10/29/2018 Status: F Source: MARY 11:54 PM [facility] REPOSITORY [facility] Medical Records Department [address] [place] [address] Discharge Instruction 10/29/182137 MR#: [id number] Acct: [id number] Name: BRITNEY WEST Rep #: [id number] : 1955 63 From: Lowell Cisneros MD PCP: Fabi Gagnon MD Status: DEP ER ED Disposition - Plan for ED Patient: Chief Complaint: Laceration Instructions: ED Head Injury Closed, ED Laceration Scalp Stitch Or Stap Referrals: Fabi Gagnon MD [Primary Care Provider] - 10 Day for suture removal Additional Instructions: Keep area clean. Ice to your scalp. Tylenol for pain. Rj out in 10 days. Return if severe headache, vomiting or weakness to your upper or lower extremities. What to do if you have Problems For any increased pain, shortness of breath, bleeding, nausea or vomiting, chest pain, or any unexpected problems, contact your Primary Care Provider. Call [facility] ([phone]) or report to the closest Emergency Room. Call 911 if necessary. 10/29/18 5084 <Electronically signed by Lowell Cisneros MD> Date Lowell Cisneros MD Cosigner Signature (If Indicated): Date CC: Fabi Gagnon MD BRAIN/HEAD WITHOUT Observed: 10/29/2018 Status: F Source: MARY CONTRAST 8:30 PM [facility] Imaging Services [address] [place] [address] Brain/Head without Contrast MR#: [id number] Acct: [id number] Name: BRITNEY WEST Bunny Rep #: [id number] : 1955 63 From: Griselda Jenkins MD PCP: Fabi Gagnon MD Status: REG ER Study: Brain/Head without Contrast Date of Exam: 10/29/18 Exam# [id number] Ordering Dr: Lowell Cisneros MD STUDY: CT BRAIN WITHOUT CONTRAST REASON FOR EXAM: Male, 63 years old. Fall with head laceration. RADIATION DOSAGE (If Supplied By Facility): CTDIvol = ( 44.99 ) mGy, DLP = ( 812.98 ) mGycm TECHNIQUE: Transaxial CT imaging of the brain was performed without administration of intravenous contrast material. Individualized dose optimization techniques were used for this CT. COMPARISON: Prior head CT exam of March 31, 2017 FINDINGS: Normal soft tissue structures. Normal calvarium. Old fracture deformity of the medial left orbital wall leaving a concave deformity. Normal size ventricles and extra-axial spaces for the patient's age. Normal white matter tracts of the cerebral hemispheres. Normal basal ganglia and thalami. Normal brainstem. Normal cerebellum. Carotid artery calcifications. There is no intracranial hemorrhage. There are no findings of an acute ischemic infarction. Normal visualized paranasal sinuses. CT/Brain/Head without Contrast IMPRESSION: No acute intracranial findings. Negative for hemorrhage, hematoma or mass density. Negative for skull fracture. Mild involutional changes and carotid artery calcification. Old fracture deformity of the left medial orbital wall. Electronically Signed: Griselda Jenkins MD at 20:54 EST , Service support , CC: Lowell Cisneros MD; Fabi Gagnon MD [employer] Supervisor: Signed PROGRESS Observed: 08/19/2018 Status: COMPLETED Source: [place] 4:47 PM [facility] REPOSITORY HNO ID: [id number] Author: Fabi Gagnon Service: (none) Author Type: Physician Type: Progress Notes Filed: 08/31/2018 12:20 AM Note Text: Patient presents with: 3 mo f/up SUBJECTIVE: Britney eWst is a 63 year old year old gentleman here today for 3 month follow up appointment for review of medical conditions. major complaint--depression Totally exhausted Not eating well--does not feel like cooking. Hard to do housework. Just does work then done. Works Friday Gets 8 hours of sleep if goes to bed at 8 or 9PM. Had week off and got nothing done. 64 yo almost Just him and dog. High deductible noted; cost of health care. Negative thining Not needing Valium or flexeril much PAST MEDICAL HISTORY Diagnosis Date - Alcohol abuse 2006(stopped) in remission - Benign neoplasm of colon - Carpal tunnel syndrome - Carpal tunnel syndrome, right 01/23/2012 - Cocaine abuse (HCC) 2006 (stopped) In remission - Degeneration of lumbar or lumbosacral intervertebral disc - Depressive disorder, not elsewhere classified - Dermatophytosis of foot 01/19/2008 - Diabetes mellitus type 2 in obese (HCC) - Family history of malignant neoplasm of gastrointestinal tract - Frequency of urination 05/24/2014 - Hemorrhage of gastrointestinal tract, unspecified - History of pancreatitis 05/10/2014 States no longer drinks. Hx pancreatic pseudocysts- CT 2010 - Hyperplasia of prostate - Lateral epicondylitis of both elbows 02/13/2015 - Obesity, Class III, BMI >= 40 (morbid obesity) E66.01 05/12/2017 - SAAD (obstructive sleep apnea) 2013 CPAP therapy - Other specified disorder of rectum and anus 12/05/2008 - PMH - PAST MEDICAL HISTORY OF macular degeration - PMH - PAST MEDICAL HISTORY OF CTS - Urinary retention 05/24/2014 Current Outpatient Prescriptions: umeclidinium-vilanterol (ANORO ELLIPTA) 62.5-25 mcg/actuation inhaler Inhale 1 Inhalation as instructed once daily. lisinopril (ZESTRIL, PRINIVIL) 10 mg tablet Take 1 tablet by mouth once daily. glipiZIDE XL (GLUCOTROL XL) 10 mg 24 hr tablet Take 1 tablet by mouth once daily. gabapentin (NEURONTIN) 300 mg capsule Take 1 capsule by mouth three times daily. cyclobenzaprine (FLEXERIL) 10 mg tablet Take 1 tablet by mouth three times daily as needed for Muscle Spasm. buPROPion SR (WELLBUTRIN SR) 150 mg 12 hr tablet Take 1 tablet by mouth once daily. metFORMIN ER (GLUCOPHAGE XR) 500 mg 24 hr tablet 1000 mg at breakfast and supper VENTOLIN HFA 90 mcg/actuation inhaler Inhale 2 Puffs as instructed every 4 hours as needed. traMADol (ULTRAM) 50 mg tablet Take 1 tablet by mouth every 6 hours as needed for Pain. naproxen (NAPROSYN) 500 mg tablet Take 1 tablet by mouth twice daily with meals. Take with food. diazePAM (VALIUM) 5 mg tablet Take 1 tablet by mouth every 6 hours as needed. blood sugar diagnostic (LoganTOUCH ULTRA TEST) test strip 1 Strip three times daily. Test blood sugar(s) 3 times daily. Dx: E11.65 Insulin: No. Uncontrolled/ fluctuating sugar. CPAP Initiate CPAP @ 17 cm of water with humidification. Mask (per patient preference) optional chin strap (if indicated) , filters, tubing, humidifier and lifetime supplies. multivitamin tablet Take 1 tablet by mouth once daily. Cholecalciferol, Vitamin D3, 5,000 unit cap Take 10,000 Units by mouth once daily. Lancets (ONE TOUCH ULTRASOFT LANCETS) lancets Test blood sugar(s) 1 times daily. Dx: 250.00, Insulin: No naftifine (NAFTIN) 2 % crea Apply 1 application to affected area once daily. Blood-Glucose Meter (ONE TOUCH ULTRA SYSTEM KIT) monitoring kit 1 Each three times daily. (For uncontrolled/variable sugars 250.02) No current facility-administered medications for this visit. OBJECTIVE: BP 108/60 (BP Site: Left Arm, BP Position: Sitting, BP Cuff Size: Regular Adult) Pulse 88 Resp 20 Wt 112.5 kg (248 lb) BMI 37.71 kg/m? Patient is alert, oriented times 3, no apparent distress, affect is bright, reactive. Last 5 Encounter BP Readings: Date: BP: 08/19/2018 108/60 05/05/2018 120/64 02/27/2018 132/72 02/16/2018 132/76 11/17/2017 138/62 Last 5 Encounter Wt Readings: Date: Wt: 08/19/2018 112.5 kg (248 lb) 05/05/2018 113.9 kg (251 lb) 02/27/2018 115.2 kg (254 lb) 02/16/2018 116.6 kg (257 lb) 02/16/2018 116.6 kg (257 lb) Heart: Regular rate, rhythm, no murmurs, gallops, rubs. Lungs: Clear to auscultation, bilaterally, breathing non labored. Ext: No cyanosis, clubbing, or edema. Component Latest Ref Rng AND Units 01/08/2018 04/28/2018 08/17/2018 Protein, Total 6.3 - 8.0 g/dL 6.9 7.4 6.8 Albumin 3.9 - 4.9 g/dL 4.2 4.6 4.1 Calcium 8.5 - 10.2 mg/dL 9.0 9.4 9.0 Bilirubin, Total 0.2 - 1.3 mg/dL 0.2 0.3 0.2 Alkaline Phosphatase 36 - 108 U/L 69 66 73 AST 14 - 40 U/L 24 26 27 Glucose 74 - 99 mg/dL 113 (H) 116 (H) 115 (H) BUN 9 - 24 mg/dL 14 17 17 Creatinine 0.73 - 1.22 mg/dL 0.83 0.97 0.85 Sodium 136 - 144 mmol/L 141 138 139 Potassium 3.7 - 5.1 mmol/L 3.9 4.4 4.3 Chloride 97 - 105 mmol/L 99 99 103 CO2 22 - 30 mmol/L 27 22 21 (L) Anion Gap 9 - 18 mmol/L 15 17 15 ALT 10 - 54 U/L 41 37 36 eGFR- >60 >60 >60 eGFR-All Other Races . >60 >60 >60 Total Cholesterol, Nonfasting <200 mg/dL 158 Triglycerides, Nonfasting <150 mg/dL 173 (H) HDL Cholesterol, Nonfasting >39 mg/dL 28 (L) LDL Cholesterol, Nonfasting <100 mg/dL 95 Non HDL Cholesterol, Nonfasting <130 mg/dL 130 (H) VLDL Cholesterol, Nonfasting <30 mg/dL 35 (H) Total Chol/HDL Ratio, Nonfasting <5.10 mg/dL 5.64 (H) LDL/HDL Ratio, Nonfasting <2.54 mg/dL 3.39 (H) Creatinine, Ur Random (UCRR) 20 - 300 mg/dL 69.2 Albumin, Urine Random 0.0 - 23.0 mg/L <12.0 Albumin/Creat Ratio 0 - 30 mg/g Not calculated Hemoglobin A1C 4.3 - 5.6 % 7.8 (H) 7.0 (H) 7.1 (H) Estimated Average Glucose mg/dL 177 154 157 ASSESSMENT AND PLAN: Encounter Diagnosis ICD-10-CM 1. Essential hypertension I10 2. Anxiety F41.9 buPROPion SR (WELLBUTRIN SR) 150 mg 12 hr tablet 3. COPD with chronic bronchitis (HCC) J44.9 4. Difficulty controlling anger R45.4 buPROPion SR (WELLBUTRIN SR) 150 mg 12 hr tablet 5. Hyperlipidemia, mixed E78.2 6. Smoker F17.200 buPROPion SR (WELLBUTRIN SR) 150 mg 12 hr tablet 7. Diabetic peripheral neuropathy (HCC) E11.42 8. Reactive depression F32.9 9. Need for vaccination Z23 ADMIN OF INFLUENZA VACCINE INFLUENZA VACCINE QUADRIVALENT AGE 3 YRS PLUS + IM Above issues addressed with patient. Patient involved in shared decision making for management of medical issues. History and medications reviewed. Epic updated as needed Refills taken care of and meds adjusted as indicated after reviewed history, exam and labs. Health Maintenance reviewed. Updated record and/or ordered tests as recorded. Encouraged on efforts at healthy diet and regular exercise and adequate sleep. Needs to keep working on diet and exercise with lifestyle changes for effective weight loss as well as control of DM, and control of BP and lipids. Emotional support given. Medical management of depression and anxiety discussed. Keep working on managing anger. Further evaluation and treatment as indicated. Discussed smoking cessagion. The majority of the visit was spent counseling and/or coordinating care for the patient. Bxly-on-frgy time was at least 20 minutes. Fabi Gagnon MD CNOV Observed: 08/19/2018 Status: COMPLETED Source: [place] 3:40 PM [facility] REPOSITORY Office Visit (INTMWS) BRITNEY WEST ([id number]) 1955 M NFR Date Time Provider Department 08/19/18 3:40 PM FABI GAGNON INTMWS During your visit today, we recorded the following information about you: Pulse Respiration Blood pressure Weight 88/minute 20/minute 108/60 112.5 kg Speedy Neri 08/19/2018 4:52 PM Signed Influenza Vaccine Documentation: ? Patient is identified by name and date of : Yes ? Patient is older than 6 months of age: Yes ? Patient denies a severe allergy to any vaccine component or to a previous dose of influenza vaccine: Yes FOR EGG ALLERGY CONCERNS, REFER TO PROVIDER. ? Denies allergy to gelatin, formaldehyde, thimerosol :Yes ? Patient is afebrile and not moderately or severely ill: Yes ? Does the patient have a history of Guillain ?[place] Syndrome (a severe paralytic illness): No ? Denies bone marrow transplant prior 6 months or solid organ transplant prior 3 months: Yes ? Denies a history of fainting after a prior injection or medical procedure? Yes If patient has fainted in the past, the CDC recommends sitting or lying down for 15 minutes after the vaccination. ? VIS sheet provided: Yes ? See Immunization Form in [facility] for details of immunizations administered today. If patient reports dizziness, vision changes or ringing in the ears post vaccination ? please have patient sit or lie down for 15 minutes. Fabi Gagnon MD 08/31/2018 12:20 AM Signed Patient presents with: 3 mo f/up SUBJECTIVE: Britney West is a 63 year old year old gentleman here today for 3 month follow up appointment for review of medical conditions. major complaint--depression Totally exhausted Not eating well--does not feel like cooking. Hard to do housework. Just does work then done. Works Friday Gets 8 hours of sleep if goes to bed at 8 or 9PM. Had week off and got nothing done. 64 yo almost Just him and dog. High deductible noted; cost of health care. Negative thining Not needing Valium or flexeril much PAST MEDICAL HISTORY Diagnosis Date - Alcohol abuse 2006(stopped) in remission - Benign neoplasm of colon - Carpal tunnel syndrome - Carpal tunnel syndrome, right 01/23/2012 - Cocaine abuse (HCC) 2006 (stopped) In remission - Degeneration of lumbar or lumbosacral intervertebral disc - Depressive disorder, not elsewhere classified - Dermatophytosis of foot 01/19/2008 - Diabetes mellitus type 2 in obese (HCC) - Family history of malignant neoplasm of gastrointestinal tract - Frequency of urination 05/24/2014 - Hemorrhage of gastrointestinal tract, unspecified - History of pancreatitis 05/10/2014 States no longer drinks. Hx pancreatic pseudocysts- CT 2010 - Hyperplasia of prostate - Lateral epicondylitis of both elbows 02/13/2015 - Obesity, Class III, BMI >= 40 (morbid obesity) E66.01 05/12/2017 - SAAD (obstructive sleep apnea) 2013 CPAP therapy - Other specified disorder of rectum and anus 12/05/2008 - PMH - PAST MEDICAL HISTORY OF macular degeration - PMH - PAST MEDICAL HISTORY OF CTS - Urinary retention 05/24/2014 Current Outpatient Prescriptions: umeclidinium-vilanterol (ANORO ELLIPTA) 62.5-25 mcg/actuation inhaler Inhale 1 Inhalation as instructed once daily. lisinopril (ZESTRIL, PRINIVIL) 10 mg tablet Take 1 tablet by mouth once daily. glipiZIDE XL (GLUCOTROL XL) 10 mg 24 hr tablet Take 1 tablet by mouth once daily. gabapentin (NEURONTIN) 300 mg capsule Take 1 capsule by mouth three times daily. cyclobenzaprine (FLEXERIL) 10 mg tablet Take 1 tablet by mouth three times daily as needed for Muscle Spasm. buPROPion SR (WELLBUTRIN SR) 150 mg 12 hr tablet Take 1 tablet by mouth once daily. metFORMIN ER (GLUCOPHAGE XR) 500 mg 24 hr tablet 1000 mg at breakfast and supper VENTOLIN HFA 90 mcg/actuation inhaler Inhale 2 Puffs as instructed every 4 hours as needed. traMADol (ULTRAM) 50 mg tablet Take 1 tablet by mouth every 6 hours as needed for Pain. naproxen (NAPROSYN) 500 mg tablet Take 1 tablet by mouth twice daily with meals. Take with food. diazePAM (VALIUM) 5 mg tablet Take 1 tablet by mouth every 6 hours as needed. blood sugar diagnostic (Salt RightsUCH ULTRA TEST) test strip 1 Strip three times daily. Test blood sugar(s) 3 times daily. Dx: E11.65 Insulin: No. Uncontrolled/ fluctuating sugar. CPAP Initiate CPAP @ 17 cm of water with humidification. Mask (per patient preference) optional chin strap (if indicated) , filters, tubing, humidifier and lifetime supplies. multivitamin tablet Take 1 tablet by mouth once daily. Cholecalciferol, Vitamin D3, 5,000 unit cap Take 10,000 Units by mouth once daily. Lancets (ONE TOUCH ULTRASOFT LANCETS) lancets Test blood sugar(s) 1 times daily. Dx: 250.00, Insulin: No naftifine (NAFTIN) 2 % crea Apply 1 application to affected area once daily. Blood-Glucose Meter (ONE TOUCH ULTRA SYSTEM KIT) monitoring kit 1 Each three times daily. (For uncontrolled/variable sugars 250.02) No current facility-administered medications for this visit. OBJECTIVE: BP 108/60 (BP Site: Left Arm, BP Position: Sitting, BP Cuff Size: Regular Adult) Pulse 88 Resp 20 Wt 112.5 kg (248 lb) BMI 37.71 kg/m? Patient is alert, oriented times 3, no apparent distress, affect is bright, reactive. Last 5 Encounter BP Readings: Date: BP: 08/19/2018 108/60 05/05/2018 120/64 02/27/2018 132/72 02/16/2018 132/76 11/17/2017 138/62 Last 5 Encounter Wt Readings: Date: Wt: 08/19/2018 112.5 kg (248 lb) 05/05/2018 113.9 kg (251 lb) 02/27/2018 115.2 kg (254 lb) 02/16/2018 116.6 kg (257 lb) 02/16/2018 116.6 kg (257 lb) Heart: Regular rate, rhythm, no murmurs, gallops, rubs. Lungs: Clear to auscultation, bilaterally, breathing non labored. Ext: No cyanosis, clubbing, or edema. Component Latest Ref Rng AND Units 01/08/2018 04/28/2018 08/17/2018 Protein, Total 6.3 - 8.0 g/dL 6.9 7.4 6.8 Albumin 3.9 - 4.9 g/dL 4.2 4.6 4.1 Calcium 8.5 - 10.2 mg/dL 9.0 9.4 9.0 Bilirubin, Total 0.2 - 1.3 mg/dL 0.2 0.3 0.2 Alkaline Phosphatase 36 - 108 U/L 69 66 73 AST 14 - 40 U/L 24 26 27 Glucose 74 - 99 mg/dL 113 (H) 116 (H) 115 (H) BUN 9 - 24 mg/dL 14 17 17 Creatinine 0.73 - 1.22 mg/dL 0.83 0.97 0.85 Sodium 136 - 144 mmol/L 141 138 139 Potassium 3.7 - 5.1 mmol/L 3.9 4.4 4.3 Chloride 97 - 105 mmol/L 99 99 103 CO2 22 - 30 mmol/L 27 22 21 (L) Anion Gap 9 - 18 mmol/L 15 17 15 ALT 10 - 54 U/L 41 37 36 eGFR- >60 >60 >60 eGFR-All Other Races . >60 >60 >60 Total Cholesterol, Nonfasting <200 mg/dL 158 Triglycerides, Nonfasting <150 mg/dL 173 (H) HDL Cholesterol, Nonfasting >39 mg/dL 28 (L) LDL Cholesterol, Nonfasting <100 mg/dL 95 Non HDL Cholesterol, Nonfasting <130 mg/dL 130 (H) VLDL Cholesterol, Nonfasting <30 mg/dL 35 (H) Total Chol/HDL Ratio, Nonfasting <5.10 mg/dL 5.64 (H) LDL/HDL Ratio, Nonfasting <2.54 mg/dL 3.39 (H) Creatinine, Ur Random (UCRR) 20 - 300 mg/dL 69.2 Albumin, Urine Random 0.0 - 23.0 mg/L <12.0 Albumin/Creat Ratio 0 - 30 mg/g Not calculated Hemoglobin A1C 4.3 - 5.6 % 7.8 (H) 7.0 (H) 7.1 (H) Estimated Average Glucose mg/dL 177 154 157 ASSESSMENT AND PLAN: Encounter Diagnosis ICD-10-CM 1. Essential hypertension I10 2. Anxiety F41.9 buPROPion SR (WELLBUTRIN SR) 150 mg 12 hr tablet 3. COPD with chronic bronchitis (HCC) J44.9 4. Difficulty controlling anger R45.4 buPROPion SR (WELLBUTRIN SR) 150 mg 12 hr tablet 5. Hyperlipidemia, mixed E78.2 6. Smoker F17.200 buPROPion SR (WELLBUTRIN SR) 150 mg 12 hr tablet 7. Diabetic peripheral neuropathy (HCC) E11.42 8. Reactive depression F32.9 9. Need for vaccination Z23 ADMIN OF INFLUENZA VACCINE INFLUENZA VACCINE QUADRIVALENT AGE 3 YRS PLUS + IM Above issues addressed with patient. Patient involved in shared decision making for management of medical issues. History and medications reviewed. Epic updated as needed Refills taken care of and meds adjusted as indicated after reviewed history, exam and labs. Health Maintenance reviewed. Updated record and/or ordered tests as recorded. Encouraged on efforts at healthy diet and regular exercise and adequate sleep. Needs to keep working on diet and exercise with lifestyle changes for effective weight loss as well as control of DM, and control of BP and lipids. Emotional support given. Medical management of depression and anxiety discussed. Keep working on managing anger. Further evaluation and treatment as indicated. Discussed smoking cessagion. The majority of the visit was spent counseling and/or coordinating care for the patient. Xfcu-hv-zfhd time was at least 20 minutes. Fabi Gagnon MD Referring Provider: FABI GAGNON [[id number]] Allergies As of Date: 08/19/2018 Noted Allergy Reaction CIPRO (CIPROFLOXACIN) 02/27/2006 DULOXETINE 04/18/2017 14 - Other: See Comments Comments: Caused severe Vertigo, increased his BS SIMVASTATIN 07/05/2013 14 - Other: See Comments Comments: Myalgia. VENLAFAXINE 03/06/2015 14 - Other: See Comments Comments: Chewing on his tongue Date Reviewed: 08/19/2018 Reviewed by: Speedy Neri - Fully Assessed Reason for Visit: 3 mo f/up [Other] Primary Visit Diagnosis:Essential hypertension [I10] Other Visit Diagnoses:Anxiety [F41.9] COPD with chronic bronchitis (HCC) [J44.9] Difficulty controlling anger [R45.4] Hyperlipidemia, mixed [E78.2] Smoker [F17.200] Diabetic peripheral neuropathy (HCC) [E11.42] Reactive depression [F32.9] Need for vaccination [Z23] Order(s):ADMIN OF INFLUENZA VACCINE [[id number]] Order #: [id number]: 1 INFLUENZA VACCINE QUADRIVALENT AGE 3 YRS PLUS + IM [[id number]] Order #: [id number] glipiZIDE (GLUCOTROL XL) 10mg 24 hr tabletTake 1 tablet by mouth once daily.Disp: 30 tabletRfl: 11 buPROPion SR (WELLBUTRIN SR) 150 mg 12 hr tabletTake 1 tablet by mouth twice daily.Disp: 60 tabletRfl: 11 Prescriptions as of 08/19/2018 Sig: BUPROPION HCL SR 150 MG TABLE* Take 1 tablet by mouth twice * UMECLIDINIUM 62.5 MCG-VILANTE* Inhale 1 Inhalation as instru* LISINOPRIL 10 MG TABLET Take 1 tablet by mouth once d* GABAPENTIN 300 MG CAPSULE Take 1 capsule by mouth three* CYCLOBENZAPRINE 10 MG TABLET Take 1 tablet by mouth three * METFORMIN ER 500 MG TABLET,EX* 1000 mg at breakfast and supp* VENTOLIN HFA 90 MCG/ACTUATION* Inhale 2 Puffs as instructed * TRAMADOL 50 MG TABLET Take 1 tablet by mouth every * NAPROXEN 500 MG TABLET Take 1 tablet by mouth twice * DIAZEPAM 5 MG TABLET Take 1 tablet by mouth every * BLOOD SUGAR DIAGNOSTIC STRIPS 1 Strip three times daily. Te* CPAP Initiate CPAP @ 17 cm of wate* MULTIVITAMIN TABLET Take 1 tablet by mouth once d* CHOLECALCIFEROL (VITAMIN D3) * Take 10,000 Units by mouth on* LANCETS Test blood sugar(s) 1 times * NAFTIFINE 2 % TOPICAL CREAM Apply 1 application to affect* BLOOD-GLUCOSE METER KIT 1 Each three times daily. (Fo* GLIPIZIDE ER 10 MG TABLET, EX* Take 1 tablet by mouth once d* Problem List As Of Date 08/19/2018 Noted Resolved BACKACHE NOS [M54.9] INVALID FOR* COPD with chronic bronchitis (HCC) [J44.9] INVALID FOR* LUMB/LUMBOSAC DISC DEGEN [M51.37] INVALID FOR* Other Abnormal Glucose [R73.09] INVALID FOR*07/06/2010 Thoracic or Lumbosacral Neuritis or Radiculitis*INVALID FOR*04/10/2010 Pain in Joint, Lower Leg [M25.569] INVALID FOR*04/10/2010 Essential hypertension [I10] INVALID FOR* Hyperlipidemia, mixed [E78.2] INVALID FOR* More... SLEEP APNEA NOS [G47.30] INVALID FOR* Pruritus Ani [L29.0] INVALID FOR*04/10/2010 Anal or Rectal Pain [K62.89] INVALID FOR*04/10/2010 Other Symptoms Involving Digestive System [R19.*INVALID FOR*04/10/2010 Blood in Stool [K92.1] INVALID FOR*04/10/2010 BPH W URINARY OBS/LUTS [N40.1] INVALID FOR* Anxiety [F41.9] INVALID FOR* Metabolic Syndrome [E88.81] INVALID FOR* Abnormal CXR (chest x-ray) [R93.89] INVALID FOR*01/06/2012 Syncope [R55] INVALID FOR*01/06/2012 Carpal tunnel syndrome, left [G56.02] INVALID FOR*02/24/2012 Diabetic peripheral neuropathy [E11.42] INVALID FOR* Diabetes mellitus type 2, uncontrolled, without*INVALID FOR* More... Pain disorder with psychological component [F45*INVALID FOR* Reactive depression [F32.9] INVALID FOR* Smoker [F17.200] INVALID FOR* Obesity (BMI 30-39.9) [E66.9] INVALID FOR* Visit Notes: >> Speedy Neri Wed Aug 19, 2018 4:23 PM Status: Signed Influenza Vaccine Documentation: ? Patient is identified by name and date of : Yes ? Patient is older than 6 months of age: Yes ? Patient denies a severe allergy to any vaccine component or to a previous dose of influenza vaccine: Yes FOR EGG ALLERGY CONCERNS, REFER TO PROVIDER. ? Denies allergy to gelatin, formaldehyde, thimerosol :Yes ? Patient is afebrile and not moderately or severely ill: Yes ? Does the patient have a history of Guillain ?[place] Syndrome (a severe paralytic illness): No ? Denies bone marrow transplant prior 6 months or solid organ transplant prior 3 months: Yes ? Denies a history of fainting after a prior injection or medical procedure? Yes If patient has fainted in the past, the CDC recommends sitting or lying down for 15 minutes after the vaccination. ? VIS sheet provided: Yes ? See Immunization Form in [facility] for details of immunizations administered today. If patient reports dizziness, vision changes or ringing in the ears post vaccination ? please have patient sit or lie down for 15 minutes. Prescriptions ordered this encounter Disp Refills Start End GLIPIZIDE ER 10 MG TABLET, EXTENDED * 30 t* 08/19/2018 Route: ORAL Sig: Take 1 tablet by mouth once daily. BUPROPION HCL SR 150 MG TABLET,12 HR* 60 t* 08/19/2018 Cmt: Intentional dose increase Route: ORAL Sig: Take 1 tablet by mouth twice daily. Medications Discontinued During This Encounter glipiZIDE XL (GLUCOTROL XL) 10 mg 24* 30 t* 5 03/10/2018 08/19/2018 Route: ORAL Sig: Take 1 tablet by mouth once daily. Disc: Reason for discontinue is not on file. buPROPion SR (WELLBUTRIN SR) 150 mg * 30 t* 11 02/27/2018 08/19/2018 Route: ORAL Sig: Take 1 tablet by mouth once daily. Disc: Reason for discontinue is not on file. Disposition: Return for Add next 3 month FU. Follow-up and Disposition History Recorded Encounter Status:Closed by FABI GAGNON MD on 08/31/18 HEMOGLOBIN A1C Collected: 08/17/2018 Status: F Source: [place] 3:19 PM [facility] REPOSITORY TYPE CODE TESTS RESULT OUT OF REFERENCE UNITS RANGE LAB HGBA1C 4.3-5.6 % High Hemoglobin A1c 7.1 LAB HBA0 mg/dL Est. Average Glucose 157 Result Comment: eAG: (Estimated average glucose) is a calculated value from HgbA1c and is medicare sales representative of the average blood glucose level in the last 2-3 month period. Performed By: #### HBA1C, CMP, LIPNF #### [facility] [address] [id number] COMP METABOLIC PANEL Collected: 08/17/2018 Status: F Source: [place] 3:19 PM [facility] REPOSITORY TYPE CODE TESTS RESULT OUT OF REFERENCE UNITS RANGE LAB TP 6.3-8.0 g/dL Protein, Total 6.8 LAB ALB 3.9-4.9 g/dL Albumin 4.1 LAB CA 8.5-10.2 mg/dL Calcium, Total 9.0 LAB TBIL 0.2-1.3 mg/dL Bilirubin, Total 0.2 LAB ALKP 36-108 U/L Alkaline Phosphatase 73 LAB AST 14-40 U/L AST 27 LAB GLU 74-99 mg/dL Glucose High 115 Result Comment: The Stateless Diabetes Association (ADA) provides guidance for cutoff values for fasting glucose and random glucose. The ADA defines fasting as no caloric intake for at least 8 hours. Fas ting plasma glucose results between 100 to 125 mg/dL indicate increased risk for diabetes (prediabetes). Fasting plasma glucose results greater than or equal to 126 mg/dL meet the criteria for diagnosis of diabetes. In the absence of unequivocal hyperglycemia, results should be confirmed by repeat testing. In a patient with classic symptoms of hyperglycemia or hyperglycemic crisis, random plasma glucose results greater than or equal to 200 mg/dL meet the criteria for diagnosis of diabetes. Reference: Standards of Medical Care in Diabetes 2016, Stateless Diabetes Association. Diabetes Care. 2016.39(Suppl 1). LAB BUN 9-24 mg/dL BUN 17 LAB CRET 0.73-1.22 mg/dL Creatinine 0.85 LAB NA 136-144 mmol/L Sodium 139 LAB K 3.7-5.1 mmol/L Potassium 4.3 LAB CL 97-105 mmol/L Chloride 103 LAB CO2 22-30 mmol/L CO2 Low 21 LAB AGAP 9-18 mmol/L Anion Gap 15 LAB ALT 10-54 U/L ALT 36 LAB GFRAA eGFR- Amer. >60 LAB GFRNAA . eGFR-All Other Races >60 Result Comment: eGFR (Estimated GFR) Units of measure: mL/min/1.73 meters squared eGFR is derived from the reexpressed MDRD Study equation using the following parameters: serum creatinine, age, gender and race. The creatinine assay has been calibrated to be traceable to IDMS. An eGFR <60 mL/min/1.73m2 for >3 months is consistent with chronic kidney disease. Refer to KDOQI guidelines for clinical interpretation. In patients with unstable renal function, e.g. those with acute kidney injury, the eGFR may not accurately reflect actual GFR. Performed By: #### HBA1C, CMP, LIPNF #### [facility] [address] [place] [id number] LIPID PANEL, NONFAST Collected: 08/17/2018 Status: F Source: [place] 3:[address] [facility] REPOSITORY TYPE CODE TESTS RESULT OUT OF REFERENCE UNITS RANGE LAB CHOLNF <200 mg/dL Total Cholesterol NF 158 Result Comment: <200 mg/dL, Desirable 200-239 mg/dL, Borderline high >239 mg/dL, High LAB TRIGNF <150 mg/dL Triglycerides, NF High 173 Result Comment: <150 mg/dL, Normal 150-199 mg/dL, Borderline high 200-499 mg/dL, High >499 mg/dL, Very high LAB HDLNF >39 mg/dL HDL Cholesterol, NF Low 28 Result Comment: 40-59 mg/dL, Acceptable >59 mg/dL, High: Negative risk factor for coronary heart disease <40 mg/dL, Low: Positive risk factor for coronary heart disease LAB LDLNF <100 mg/dL LDL Cholesterol, NF 95 Result Comment: <100 mg/dL, Optimal 100-129 mg/dL, Near optimal/above optimal 130-159 mg/dL, Borderline high 160-189 mg/dL, High >189 mg/dL, Very high Secondary prevention optimal LDL Cholesterol levels are recommended to be < 70 mg/dL LAB NOHDLN <130 mg/dL High Non HDL Chol, 130 NF Result Comment: <130 mg/dL, Optimal 130-159 mg/dL, Near optimal/above optimal 160-189 mg/dL, Borderline high 190-219 mg/dL, High >219 mg/dL, Very high Secondary prevention optimal non HDL Cholesterol levels are recommended to be < 100 mg/dL LAB VLDLNF <30 mg/dL VLDL Cholesterol, High NF 35 LAB TCHDLN <5.10 mg/dL T Chol/HDL Ratio High NF 5.64 LAB LDLHDN <2.54 mg/dL LDL/HDL Ratio, NF High 3.39 Result Comment: Reference: 1. National Cholesterol Education Program ATP III Guideline At-A-Glance Quick Desk Reference: National Heart, Lung, and Blood [place]. National Institutes of Health. 2001: NIH Publication No. 01-3305. 2. An International Atherosclerosis Society position paper: global recommendations for the management of dyslipidemia: executive summary, Atherosclerosis. 2014: 232(2):410-413. Performed By: #### HBA1C, CMP, LIPNF #### [facility] [address] [id number] CNPTOUTREACH Observed: 08/04/2018 Status: COMPLETED Source: [place] 12:00 AM [facility] REPOSITORY Patient Outreach (FAMPST) BRITNEY WEST ([id number]) 1955 M NFR Date Time Provider Department 08/04/18 FABI GAGNON FAMPST During your visit today, we recorded the following information about you: Allergies As of Date: 08/04/2018 Noted Allergy Reaction CIPRO (CIPROFLOXACIN) 02/27/2006 DULOXETINE 04/18/2017 14 - Other: See Comments Comments: Caused severe Vertigo, increased his BS SIMVASTATIN 07/05/2013 14 - Other: See Comments Comments: Myalgia. VENLAFAXINE 03/06/2015 14 - Other: See Comments Comments: Chewing on his tongue Date Reviewed: 05/05/2018 Reviewed by: Xochitl Greene LPN - Fully Assessed Visit Diagnosis:Medication management [Z79.899] Prescriptions as of 08/04/2018 Sig: UMECLIDINIUM 62.5 MCG-VILANTE* Inhale 1 Inhalation as instru* LISINOPRIL 10 MG TABLET Take 1 tablet by mouth once d* X GLIPIZIDE ER 10 MG TABLET, EX* Take 1 tablet by mouth once d* GABAPENTIN 300 MG CAPSULE Take 1 capsule by mouth three* CYCLOBENZAPRINE 10 MG TABLET Take 1 tablet by mouth three * X BUPROPION HCL SR 150 MG TABLE* Take 1 tablet by mouth once d* METFORMIN ER 500 MG TABLET,EX* 1000 mg at breakfast and supp* VENTOLIN HFA 90 MCG/ACTUATION* Inhale 2 Puffs as instructed * TRAMADOL 50 MG TABLET Take 1 tablet by mouth every * NAPROXEN 500 MG TABLET Take 1 tablet by mouth twice * DIAZEPAM 5 MG TABLET Take 1 tablet by mouth every * BLOOD SUGAR DIAGNOSTIC STRIPS 1 Strip three times daily. Te* CPAP Initiate CPAP @ 17 cm of wate* MULTIVITAMIN TABLET Take 1 tablet by mouth once d* CHOLECALCIFEROL (VITAMIN D3) * Take 10,000 Units by mouth on* LANCETS Test blood sugar(s) 1 times * NAFTIFINE 2 % TOPICAL CREAM Apply 1 application to affect* BLOOD-GLUCOSE METER KIT 1 Each three times daily. (Fo* Problem List As Of Date 08/04/2018 Noted Resolved BACKACHE NOS [M54.9] INVALID FOR* COPD with chronic bronchitis (HCC) [J44.9] INVALID FOR* LUMB/LUMBOSAC DISC DEGEN [M51.37] INVALID FOR* Other Abnormal Glucose [R73.09] INVALID FOR*07/06/2010 Thoracic or Lumbosacral Neuritis or Radiculitis*INVALID FOR*04/10/2010 Pain in Joint, Lower Leg [M25.569] INVALID FOR*04/10/2010 Essential hypertension [I10] INVALID FOR* Hyperlipidemia, mixed [E78.2] INVALID FOR* More... SLEEP APNEA NOS [G47.30] INVALID FOR* Pruritus Ani [L29.0] INVALID FOR*04/10/2010 Anal or Rectal Pain [K62.89] INVALID FOR*04/10/2010 Other Symptoms Involving Digestive System [R19.*INVALID FOR*04/10/2010 Blood in Stool [K92.1] INVALID FOR*04/10/2010 BPH W URINARY OBS/LUTS [N40.1] INVALID FOR* Anxiety [F41.9] INVALID FOR* Metabolic Syndrome [E88.81] INVALID FOR* Abnormal CXR (chest x-ray) [R93.89] INVALID FOR*01/06/2012 Syncope [R55] INVALID FOR*01/06/2012 Carpal tunnel syndrome, left [G56.02] INVALID FOR*02/24/2012 Diabetic peripheral neuropathy [E11.42] INVALID FOR* Diabetes mellitus type 2, uncontrolled, without*INVALID FOR* More... Pain disorder with psychological component [F45*INVALID FOR* Reactive depression [F32.9] INVALID FOR* Smoker [F17.200] INVALID FOR* Obesity (BMI 30-39.9) [E66.9] INVALID FOR* Encounter Status:Closed by PurpleTeal, PRODUSER on 09/11/18 PROGRESS Observed: 05/05/2018 Status: COMPLETED Source: [place] 4:[address] [facility] REPOSITORY O ID: [id number] Author: Fabi Gangon Service: (none) Author Type: Physician Type: Progress Notes Filed: 05/14/2018 11:20 PM Note Text: Patient presents with: Recheck: 3 month follow up SUBJECTIVE: Britney West is a 63 year old year old gentleman here today for 4 month follow up appointment for review of medical conditions. Diarrhea daily. For over a month or more Losing weight. Feels better. Noted issues with back issues and leg pain. Told no back surgery since smokes. Sleep is not doing well. 3 to 4 hours some nights. Since Wellbutrin was added. But taking at night. has not needed Valium much. Has inhaler for prn use--has not needed to use much. PAST MEDICAL HISTORY Diagnosis Date - Alcohol abuse 2006(stopped) in remission - Benign neoplasm of colon - Carpal tunnel syndrome - Carpal tunnel syndrome, right 01/23/2012 - Cocaine abuse 2006 (stopped) In remission - Degeneration of lumbar or lumbosacral intervertebral disc - Depressive disorder, not elsewhere classified - Dermatophytosis of foot 01/19/2008 - Diabetes mellitus type 2 in obese (HCC) - Family history of malignant neoplasm of gastrointestinal tract - Frequency of urination 05/24/2014 - Hemorrhage of gastrointestinal tract, unspecified - History of pancreatitis 05/10/2014 States no longer drinks. Hx pancreatic pseudocysts- CT 2010 - Hyperplasia of prostate - Lateral epicondylitis of both elbows 02/13/2015 - Obesity, Class III, BMI >= 40 (morbid obesity) E66.01 05/12/2017 - SAAD (obstructive sleep apnea) 2013 CPAP therapy - Other specified disorder of rectum and anus 12/05/2008 - PMH - PAST MEDICAL HISTORY OF macular degeration - PMH - PAST MEDICAL HISTORY OF CTS - Urinary retention 05/24/2014 Current Outpatient Prescriptions: lisinopril (ZESTRIL, PRINIVIL) 10 mg tablet Take 1 tablet by mouth once daily. glipiZIDE XL (GLUCOTROL XL) 10 mg 24 hr tablet Take 1 tablet by mouth once daily. gabapentin (NEURONTIN) 300 mg capsule Take 1 capsule by mouth three times daily. cyclobenzaprine (FLEXERIL) 10 mg tablet Take 1 tablet by mouth three times daily as needed for Muscle Spasm. buPROPion SR (WELLBUTRIN SR) 150 mg 12 hr tablet Take 1 tablet by mouth once daily. umeclidinium-vilanterol (ANORO ELLIPTA) 62.5-25 mcg/actuation inhaler Inhale 1 Inhalation as instructed once daily. metFORMIN ER (GLUCOPHAGE XR) 500 mg 24 hr tablet 1000 mg at breakfast and supper VENTOLIN HFA 90 mcg/actuation inhaler Inhale 2 Puffs as instructed every 4 hours as needed. traMADol (ULTRAM) 50 mg tablet Take 1 tablet by mouth every 6 hours as needed for Pain. naproxen (NAPROSYN) 500 mg tablet Take 1 tablet by mouth twice daily with meals. Take with food. diazePAM (VALIUM) 5 mg tablet Take 1 tablet by mouth every 6 hours as needed. blood sugar diagnostic (LoganTOUCH ULTRA TEST) test strip 1 Strip three times daily. Test blood sugar(s) 3 times daily. Dx: E11.65 Insulin: No. Uncontrolled/ fluctuating sugar. CPAP Initiate CPAP @ 17 cm of water with humidification. Mask (per patient preference) optional chin strap (if indicated) , filters, tubing, humidifier and lifetime supplies. multivitamin tablet Take 1 tablet by mouth once daily. Cholecalciferol, Vitamin D3, 5,000 unit cap Take 10,000 Units by mouth once daily. Lancets (ONE TOUCH ULTRASOFT LANCETS) lancets Test blood sugar(s) 1 times daily. Dx: 250.00, Insulin: No naftifine (NAFTIN) 2 % crea Apply 1 application to affected area once daily. Blood-Glucose Meter (ONE TOUCH ULTRA SYSTEM KIT) monitoring kit 1 Each three times daily. (For uncontrolled/variable sugars 250.02) No current facility-administered medications for this visit. OBJECTIVE: BP 120/64 Pulse 84 Resp 16 Wt 113.9 kg (251 lb) BMI 38.16 kg/m? Patient is alert, oriented times 3, no apparent distress, affect is bright, reactive. Last 5 Encounter BP Readings: Date: BP: 05/05/2018 120/64 02/27/2018 132/72 02/16/2018 132/76 11/17/2017 138/62 10/15/2017 140/84 Last 5 Encounter Wt Readings: Date: Wt: 05/05/2018 113.9 kg (251 lb) 02/27/2018 115.2 kg (254 lb) 02/16/2018 116.6 kg (257 lb) 02/16/2018 116.6 kg (257 lb) 11/17/2017 119.3 kg (263 lb) Heart: Regular rate, rhythm, no murmurs, gallops, rubs. Lungs: Clear to auscultation, bilaterally, breathing non labored. Ext: No cyanosis, clubbing, or edema. Skin: benign skin lesions noted on back Component Latest Ref Rng AND Units 01/29/2017 02/24/2017 05/09/2017 08/30/2017 10/15/2017 01/08/2018 04/28/2018 Protein, Total 6.3 - 8.0 g/dL 6.6 6.9 6.9 7.4 Albumin 3.9 - 4.9 g/dL 4.1 4.3 4.2 4.6 Calcium 8.5 - 10.2 mg/dL 8.8 9.0 9.0 9.4 Bilirubin, Total 0.2 - 1.3 mg/dL 0.2 0.3 0.2 0.3 Alkaline Phosphatase 36 - 108 U/L 84 84 69 66 AST 14 - 40 U/L 27 24 24 26 Glucose 74 - 99 mg/dL 200 (H) 319 (H) 113 (H) 116 (H) BUN 9 - 24 mg/dL 15 16 14 17 Creatinine 0.73 - 1.22 mg/dL 0.86 0.78 0.83 0.97 Sodium 136 - 144 mmol/L 138 137 141 138 Potassium 3.7 - 5.1 mmol/L 4.2 4.7 3.9 4.4 Chloride 97 - 105 mmol/L 98 97 99 99 CO2 22 - 30 mmol/L 27 24 27 22 Anion Gap 9 - 18 mmol/L 13 16 15 17 ALT 10 - 54 U/L 43 50 41 37 eGFR- >60 >60 >60 >60 eGFR-All Other Races . >60 >60 >60 >60 Color Yellow Yellow Clarity Clear Clear Glucose, Urine Negative mg/dL 150 (A) Bilirubin, Urine Negative Negative Ketones, Urine Negative Negative Specific [place], Ur 1.005 - 1.030 1.017 Hemoglobin/Blood,Ur Negative Negative pH, Urine 4.5 - 8.0 5.0 Protein, Urine Negative mg/dL Negative Urobilinogen Normal Normal Nitrites Negative Negative Leukest Negative Negative Comments SEE COMMENT Urine Stephan Comment SEE COMMENT WBC, Urine 0 - 5 /HPF 0-5 RBC, Urine 0 - 3 /HPF 0-3 Epithelial Cells /HPF SEE COMMENT WBC 3.70 - 11.00 k/uL 10.56 RBC 4.20 - 6.00 m/uL 4.95 Hemoglobin 13.0 - 17.0 g/dL 15.4 Hematocrit 39.0 - 51.0 % 48.0 MCV 80.0 - 100.0 fL 97.0 MCH 26.0 - 34.0 pG 31.1 MCHC 30.5 - 36.0 g/dL 32.1 RDW-CV 11.5 - 15.0 % 12.8 Platelet Count 150 - 400 k/uL 306 MPV 9.0 - 12.7 fL 9.9 Triglyceride 30 - 149 mg/dL 170 (H) Cholesterol, Total 100 - 199 mg/dL 171 HDL Cholesterol >45 mg/dL 27 (L) VLDL Cholesterol 6 - 40 mg/dL 34 LDL Cholesterol 60 - 129 mg/dL 110 Fasting Time hrs 14 TC:HDL Ratio 1.00 - 5.00 6.33 (H) LDL:HDL Ratio 0.50 - 3.55 4.07 (H) Non HDL Cholesterol 90 - 159 mg/dL 144 Creatinine, Ur Random (UCRR) 20 - 300 mg/dL 69.2 Albumin, Urine Random 0.0 - 23.0 mg/L <12.0 Albumin/Creat Ratio 0 - 30 mg/g Not calculated Hemoglobin A1C 4.3 - 5.6 % 10.1 (H) 7.9 (H) 11.0 (H) 7.8 (H) 7.0 (H) Estimated Average Glucose mg/dL >240 180 >240 177 154 C-Peptide 0.8 - 3.2 ng/mL 5.7 (H) Glutamic Acid Decarboxylase Ab <5.0 IU/mL <5.0 TSH 0.400 - 5.500 uU/mL 2.270 NT Pro BNP <125 pg/mL 43 ASSESSMENT AND PLAN: Encounter Diagnosis ICD-10-CM 1. Diarrhea, unspecified type R19.7 2. COPD with chronic bronchitis (HCC) J44.9 umeclidinium-vilanterol (ANORO ELLIPTA) 62.5-25 mcg/actuation inhaler 3. Essential hypertension I10 4. Degeneration of lumbar or lumbosacral intervertebral disc M51.37 5. Anxiety F41.9 6. Reactive depression F32.9 7. Obesity (BMI 30-39.9) E66.9 8. Smoker F17.200 9. DM type 2 with diabetic peripheral neuropathy (HCC) E11.42 Above issues addressed with patient. Patient involved in shared decision making for management of her medical issues. History and medications reviewed. Epic updated as needed Refills taken care of and meds adjusted as indicated after reviewed history, exam and labs. Continue present management. Health Maintenance reviewed. Updated record and/or ordered tests as recorded. Encouraged on efforts at healthy diet and regular exercise and adequate sleep. Above issues addressed with patient. Patient involved in shared decision making for management of her medical issues. History and medications reviewed. Epic updated as needed Refills taken care of and meds adjusted as indicated after reviewed history, exam and labs. Health Maintenance reviewed. Updated record and/or ordered tests as recorded. Encouraged on efforts at healthy diet and regular exercise and adequate sleep. Needs to keep working on diet and exercise with lifestyle changes for effective weight loss. OARRS website checked and validated. All prescriptions have been APPROPRIATELY filled. No suspicious activity was identified.- 05/14/2018 by Fabi Gagnon MD The majority of the visit was spent counseling and/or coordinating care for the patient. Qdbt-vl-fccv time was at least 25 minutes. Fabi Gagnon MD CNOV Observed: 05/05/2018 Status: COMPLETED Source: [place] 3:20 PM [facility] REPOSITORY Office Visit (INTMWS) BRITNEY WEST ([id number]) 1955 M NFR Date Time Provider Department 05/05/18 3:20 PM FABI GAGNON INTMWS During your visit today, we recorded the following information about you: Pulse Respiration Blood pressure Weight 84/minute 16/minute 120/64 113.9 kg Fabi Gagnon MD 05/14/2018 11:20 PM Signed Patient presents with: Recheck: 3 month follow up SUBJECTIVE: Britney West is a 63 year old year old gentleman here today for 4 month follow up appointment for review of medical conditions. Diarrhea daily. For over a month or more Losing weight. Feels better. Noted issues with back issues and leg pain. Told no back surgery since smokes. Sleep is not doing well. 3 to 4 hours some nights. Since Wellbutrin was added. But taking at night. has not needed Valium much. Has inhaler for prn use--has not needed to use much. PAST MEDICAL HISTORY Diagnosis Date - Alcohol abuse 2006(stopped) in remission - Benign neoplasm of colon - Carpal tunnel syndrome - Carpal tunnel syndrome, right 01/23/2012 - Cocaine abuse 2006 (stopped) In remission - Degeneration of lumbar or lumbosacral intervertebral disc - Depressive disorder, not elsewhere classified - Dermatophytosis of foot 01/19/2008 - Diabetes mellitus type 2 in obese (HCC) - Family history of malignant neoplasm of gastrointestinal tract - Frequency of urination 05/24/2014 - Hemorrhage of gastrointestinal tract, unspecified - History of pancreatitis 05/10/2014 States no longer drinks. Hx pancreatic pseudocysts- CT 2010 - Hyperplasia of prostate - Lateral epicondylitis of both elbows 02/13/2015 - Obesity, Class III, BMI >= 40 (morbid obesity) E66.01 05/12/2017 - SAAD (obstructive sleep apnea) 2013 CPAP therapy - Other specified disorder of rectum and anus 12/05/2008 - PMH - PAST MEDICAL HISTORY OF macular degeration - PMH - PAST MEDICAL HISTORY OF CTS - Urinary retention 05/24/2014 Current Outpatient Prescriptions: lisinopril (ZESTRIL, PRINIVIL) 10 mg tablet Take 1 tablet by mouth once daily. glipiZIDE XL (GLUCOTROL XL) 10 mg 24 hr tablet Take 1 tablet by mouth once daily. gabapentin (NEURONTIN) 300 mg capsule Take 1 capsule by mouth three times daily. cyclobenzaprine (FLEXERIL) 10 mg tablet Take 1 tablet by mouth three times daily as needed for Muscle Spasm. buPROPion SR (WELLBUTRIN SR) 150 mg 12 hr tablet Take 1 tablet by mouth once daily. umeclidinium-vilanterol (ANORO ELLIPTA) 62.5-25 mcg/actuation inhaler Inhale 1 Inhalation as instructed once daily. metFORMIN ER (GLUCOPHAGE XR) 500 mg 24 hr tablet 1000 mg at breakfast and supper VENTOLIN HFA 90 mcg/actuation inhaler Inhale 2 Puffs as instructed every 4 hours as needed. traMADol (ULTRAM) 50 mg tablet Take 1 tablet by mouth every 6 hours as needed for Pain. naproxen (NAPROSYN) 500 mg tablet Take 1 tablet by mouth twice daily with meals. Take with food. diazePAM (VALIUM) 5 mg tablet Take 1 tablet by mouth every 6 hours as needed. blood sugar diagnostic (TrenStar ULTRA TEST) test strip 1 Strip three times daily. Test blood sugar(s) 3 times daily. Dx: E11.65 Insulin: No. Uncontrolled/ fluctuating sugar. CPAP Initiate CPAP @ 17 cm of water with humidification. Mask (per patient preference) optional chin strap (if indicated) , filters, tubing, humidifier and lifetime supplies. multivitamin tablet Take 1 tablet by mouth once daily. Cholecalciferol, Vitamin D3, 5,000 unit cap Take 10,000 Units by mouth once daily. Lancets (ONE TOUCH ULTRASOFT LANCETS) lancets Test blood sugar(s) 1 times daily. Dx: 250.00, Insulin: No naftifine (NAFTIN) 2 % crea Apply 1 application to affected area once daily. Blood-Glucose Meter (ONE TOUCH ULTRA SYSTEM KIT) monitoring kit 1 Each three times daily. (For uncontrolled/variable sugars 250.02) No current facility-administered medications for this visit. OBJECTIVE: BP 120/64 Pulse 84 Resp 16 Wt 113.9 kg (251 lb) BMI 38.16 kg/m? Patient is alert, oriented times 3, no apparent distress, affect is bright, reactive. Last 5 Encounter BP Readings: Date: BP: 05/05/2018 120/64 02/27/2018 132/72 02/16/2018 132/76 11/17/2017 138/62 10/15/2017 140/84 Last 5 Encounter Wt Readings: Date: Wt: 05/05/2018 113.9 kg (251 lb) 02/27/2018 115.2 kg (254 lb) 02/16/2018 116.6 kg (257 lb) 02/16/2018 116.6 kg (257 lb) 11/17/2017 119.3 kg (263 lb) Heart: Regular rate, rhythm, no murmurs, gallops, rubs. Lungs: Clear to auscultation, bilaterally, breathing non labored. Ext: No cyanosis, clubbing, or edema. Skin: benign skin lesions noted on back Component Latest Ref Rng AND Units 01/29/2017 02/24/2017 05/09/2017 08/30/2017 10/15/2017 01/08/2018 04/28/2018 Protein, Total 6.3 - 8.0 g/dL 6.6 6.9 6.9 7.4 Albumin 3.9 - 4.9 g/dL 4.1 4.3 4.2 4.6 Calcium 8.5 - 10.2 mg/dL 8.8 9.0 9.0 9.4 Bilirubin, Total 0.2 - 1.3 mg/dL 0.2 0.3 0.2 0.3 Alkaline Phosphatase 36 - 108 U/L 84 84 69 66 AST 14 - 40 U/L 27 24 24 26 Glucose 74 - 99 mg/dL 200 (H) 319 (H) 113 (H) 116 (H) BUN 9 - 24 mg/dL 15 16 14 17 Creatinine 0.73 - 1.22 mg/dL 0.86 0.78 0.83 0.97 Sodium 136 - 144 mmol/L 138 137 141 138 Potassium 3.7 - 5.1 mmol/L 4.2 4.7 3.9 4.4 Chloride 97 - 105 mmol/L 98 97 99 99 CO2 22 - 30 mmol/L 27 24 27 22 Anion Gap 9 - 18 mmol/L 13 16 15 17 ALT 10 - 54 U/L 43 50 41 37 eGFR- >60 >60 >60 >60 eGFR-All Other Races . >60 >60 >60 >60 Color Yellow Yellow Clarity Clear Clear Glucose, Urine Negative mg/dL 150 (A) Bilirubin, Urine Negative Negative Ketones, Urine Negative Negative Specific [place], Ur 1.005 - 1.030 1.017 Hemoglobin/Blood,Ur Negative Negative pH, Urine 4.5 - 8.0 5.0 Protein, Urine Negative mg/dL Negative Urobilinogen Normal Normal Nitrites Negative Negative Leukest Negative Negative Comments SEE COMMENT Urine Stephan Comment SEE COMMENT WBC, Urine 0 - 5 /HPF 0-5 RBC, Urine 0 - 3 /HPF 0-3 Epithelial Cells /HPF SEE COMMENT WBC 3.70 - 11.00 k/uL 10.56 RBC 4.20 - 6.00 m/uL 4.95 Hemoglobin 13.0 - 17.0 g/dL 15.4 Hematocrit 39.0 - 51.0 % 48.0 MCV 80.0 - 100.0 fL 97.0 MCH 26.0 - 34.0 pG 31.1 MCHC 30.5 - 36.0 g/dL 32.1 RDW-CV 11.5 - 15.0 % 12.8 Platelet Count 150 - 400 k/uL 306 MPV 9.0 - 12.7 fL 9.9 Triglyceride 30 - 149 mg/dL 170 (H) Cholesterol, Total 100 - 199 mg/dL 171 HDL Cholesterol >45 mg/dL 27 (L) VLDL Cholesterol 6 - 40 mg/dL 34 LDL Cholesterol 60 - 129 mg/dL 110 Fasting Time hrs 14 TC:HDL Ratio 1.00 - 5.00 6.33 (H) LDL:HDL Ratio 0.50 - 3.55 4.07 (H) Non HDL Cholesterol 90 - 159 mg/dL 144 Creatinine, Ur Random (UCRR) 20 - 300 mg/dL 69.2 Albumin, Urine Random 0.0 - 23.0 mg/L <12.0 Albumin/Creat Ratio 0 - 30 mg/g Not calculated Hemoglobin A1C 4.3 - 5.6 % 10.1 (H) 7.9 (H) 11.0 (H) 7.8 (H) 7.0 (H) Estimated Average Glucose mg/dL >240 180 >240 177 154 C-Peptide 0.8 - 3.2 ng/mL 5.7 (H) Glutamic Acid Decarboxylase Ab <5.0 IU/mL <5.0 TSH 0.400 - 5.500 uU/mL 2.270 NT Pro BNP <125 pg/mL 43 ASSESSMENT AND PLAN: Encounter Diagnosis ICD-10-CM 1. Diarrhea, unspecified type R19.7 2. COPD with chronic bronchitis (HCC) J44.9 umeclidinium-vilanterol (ANORO ELLIPTA) 62.5-25 mcg/actuation inhaler 3. Essential hypertension I10 4. Degeneration of lumbar or lumbosacral intervertebral disc M51.37 5. Anxiety F41.9 6. Reactive depression F32.9 7. Obesity (BMI 30-39.9) E66.9 8. Smoker F17.200 9. DM type 2 with diabetic peripheral neuropathy (HCC) E11.42 Above issues addressed with patient. Patient involved in shared decision making for management of her medical issues. History and medications reviewed. Epic updated as needed Refills taken care of and meds adjusted as indicated after reviewed history, exam and labs. Continue present management. Health Maintenance reviewed. Updated record and/or ordered tests as recorded. Encouraged on efforts at healthy diet and regular exercise and adequate sleep. Above issues addressed with patient. Patient involved in shared decision making for management of her medical issues. History and medications reviewed. Epic updated as needed Refills taken care of and meds adjusted as indicated after reviewed history, exam and labs. Health Maintenance reviewed. Updated record and/or ordered tests as recorded. Encouraged on efforts at healthy diet and regular exercise and adequate sleep. Needs to keep working on diet and exercise with lifestyle changes for effective weight loss. OARRS website checked and validated. All prescriptions have been APPROPRIATELY filled. No suspicious activity was identified.- 05/14/2018 by Fabi Gagnon MD The majority of the visit was spent counseling and/or coordinating care for the patient. Kncr-lc-ecca time was at least 25 minutes. Fabi Gagnon MD Referring Provider: FABI GAGNON [[id number]] Allergies As of Date: 05/05/2018 Noted Allergy Reaction CIPRO (CIPROFLOXACIN) 02/27/2006 DULOXETINE 04/18/2017 14 - Other: See Comments Comments: Caused severe Vertigo, increased his BS SIMVASTATIN 07/05/2013 14 - Other: See Comments Comments: Myalgia. VENLAFAXINE 03/06/2015 14 - Other: See Comments Comments: Chewing on his tongue Date Reviewed: 05/05/2018 Reviewed by: Xochitl Greene LPN - Fully Assessed Reason for Visit: Recheck [92] Cmt: 3 month follow up Primary Visit Diagnosis:Diarrhea, unspecified type [R19.7] Other Visit Diagnoses:COPD with chronic bronchitis (HCC) [J44.9] Essential hypertension [I10] Degeneration of lumbar or lumbosacral intervertebral disc [M51.37] Anxiety [F41.9] Reactive depression [F32.9] Obesity (BMI 30-39.9) [E66.9] Smoker [F17.200] DM type 2 with diabetic peripheral neuropathy (HCC) [E11.42] Order(s):umeclidinium-vilanterol (ANORO ELLIPTA) 62.5-25 mcg/actuation inhalerInhale 1 Inhalation as instructed once daily.Disp: 1 EachRfl: 11 HGB A1C [[id number]] Order #: [id number] FUTURE COMP METABOLIC PANEL [SQCMP] Order #: [id number] FUTURE Prescriptions as of 05/05/2018 Sig: UMECLIDINIUM 62.5 MCG-VILANTE* Inhale 1 Inhalation as instru* LISINOPRIL 10 MG TABLET Take 1 tablet by mouth once d* GLIPIZIDE ER 10 MG TABLET, EX* Take 1 tablet by mouth once d* GABAPENTIN 300 MG CAPSULE Take 1 capsule by mouth three* CYCLOBENZAPRINE 10 MG TABLET Take 1 tablet by mouth three * BUPROPION HCL SR 150 MG TABLE* Take 1 tablet by mouth once d* METFORMIN ER 500 MG TABLET,EX* 1000 mg at breakfast and supp* VENTOLIN HFA 90 MCG/ACTUATION* Inhale 2 Puffs as instructed * TRAMADOL 50 MG TABLET Take 1 tablet by mouth every * NAPROXEN 500 MG TABLET Take 1 tablet by mouth twice * DIAZEPAM 5 MG TABLET Take 1 tablet by mouth every * BLOOD SUGAR DIAGNOSTIC STRIPS 1 Strip three times daily. Te* CPAP Initiate CPAP @ 17 cm of wate* MULTIVITAMIN TABLET Take 1 tablet by mouth once d* CHOLECALCIFEROL (VITAMIN D3) * Take 10,000 Units by mouth on* LANCETS Test blood sugar(s) 1 times * NAFTIFINE 2 % TOPICAL CREAM Apply 1 application to affect* BLOOD-GLUCOSE METER KIT 1 Each three times daily. (Fo* Problem List As Of Date 05/05/2018 Noted Resolved BACKACHE NOS [M54.9] INVALID FOR* COPD with chronic bronchitis (HCC) [J44.9] INVALID FOR* LUMB/LUMBOSAC DISC DEGEN [M51.37] INVALID FOR* Other Abnormal Glucose [R73.09] INVALID FOR*07/06/2010 Thoracic or Lumbosacral Neuritis or Radiculitis*INVALID FOR*04/10/2010 Pain in Joint, Lower Leg [M25.569] INVALID FOR*04/10/2010 Essential hypertension [I10] INVALID FOR* Hyperlipidemia, mixed [E78.2] INVALID FOR* More... SLEEP APNEA NOS [G47.30] INVALID FOR* Pruritus Ani [L29.0] INVALID FOR*04/10/2010 Anal or Rectal Pain [K62.89] INVALID FOR*04/10/2010 Other Symptoms Involving Digestive System [R19.*INVALID FOR*04/10/2010 Blood in Stool [K92.1] INVALID FOR*04/10/2010 BPH W URINARY OBS/LUTS [N40.1] INVALID FOR* Anxiety [F41.9] INVALID FOR* Metabolic Syndrome [E88.81] INVALID FOR* Abnormal CXR (chest x-ray) [R93.8] INVALID FOR*01/06/2012 Syncope [R55] INVALID FOR*01/06/2012 Carpal tunnel syndrome, left [G56.02] INVALID FOR*02/24/2012 Diabetic peripheral neuropathy [E11.42] INVALID FOR* Diabetes mellitus type 2, uncontrolled, without*INVALID FOR* More... Pain disorder with psychological component [F45*INVALID FOR* Reactive depression [F32.9] INVALID FOR* Smoker [F17.200] INVALID FOR* Obesity (BMI 30-39.9) [E66.9] INVALID FOR* Prescriptions ordered this encounter Disp Refills Start End UMECLIDINIUM 62.5 MCG-VILANTEROL 25 * 1 Ea* 11 05/05/2018 Route: INHALATION Sig: Inhale 1 Inhalation as instructed once daily. Medications Discontinued During This Encounter umeclidinium-vilanterol (ANORO ELLIP* 1 Ea* 3 01/23/2018 05/05/2018 Route: INHALATION Sig: Inhale 1 Inhalation as instructed once daily. Disc: Reason for discontinue is not on file. Disposition: Return in about 3 months (around 08/05/2018) for 3 months follow up , 3 months follow up (make next 2 appointments), With labs prior. Follow-up and Disposition History Recorded Encounter Status:Closed by FABI GAGNON MD on 05/14/18 ALBUMIN/CREAT RATIO Collected: 04/28/2018 Status: F Source: [place] 3:19 PM [facility] REPOSITORY TYPE CODE TESTS RESULT OUT OF REFERENCE UNITS RANGE LAB UCRR 20-300 mg/dL 69.2 Creatinine,Ur ine,Ran LAB UALBR 0.0-23.0 mg/L <12.0 Albumin Urine Random LAB UALBCR 0-30 mg/g Not Albumin/Creat calculated Ratio Performed By: #### UACR #### [facility] [address] [place] [id number] COMP METABOLIC PANEL Collected: 04/28/2018 Status: F Source: [place] 3:15 PM [facility] REPOSITORY TYPE CODE TESTS RESULT OUT OF REFERENCE UNITS RANGE LAB TP 6.3-8.0 g/dL Protein, Total 7.4 LAB ALB 3.9-4.9 g/dL Albumin 4.6 LAB CA 8.5-10.2 mg/dL Calcium, Total 9.4 LAB TBIL 0.2-1.3 mg/dL Bilirubin, Total 0.3 LAB ALKP 36-108 U/L Alkaline Phosphatase 66 LAB AST 14-40 U/L AST 26 LAB GLU 74-99 mg/dL Glucose High 116 Result Comment: The Stateless Diabetes Association (ADA) provides guidance for cutoff values for fasting glucose and random glucose. The ADA defines fasting as no caloric intake for at least 8 hours. Fas ting plasma glucose results between 100 to 125 mg/dL indicate increased risk for diabetes (prediabetes). Fasting plasma glucose results greater than or equal to 126 mg/dL meet the criteria for diagnosis of diabetes. In the absence of unequivocal hyperglycemia, results should be confirmed by repeat testing. In a patient with classic symptoms of hyperglycemia or hyperglycemic crisis, random plasma glucose results greater than or equal to 200 mg/dL meet the criteria for diagnosis of diabetes. Reference: Standards of Medical Care in Diabetes 2016, Stateless Diabetes Association. Diabetes Care. 2016.39(Suppl 1). LAB BUN 9-24 mg/dL BUN 17 LAB CRET 0.73-1.22 mg/dL Creatinine 0.97 LAB NA 136-144 mmol/L Sodium 138 LAB K 3.7-5.1 mmol/L Potassium 4.4 LAB CL 97-105 mmol/L Chloride 99 LAB CO2 22-30 mmol/L CO2 22 LAB AGAP 9-18 mmol/L Anion Gap 17 LAB ALT 10-54 U/L ALT 37 LAB GFRAA eGFR- Amer. >60 LAB GFRNAA . eGFR-All Other Races >60 Result Comment: eGFR (Estimated GFR) Units of measure: mL/min/1.73 meters squared eGFR is derived from the reexpressed MDRD Study equation using the following parameters: serum creatinine, age, gender and race. The creatinine assay has been calibrated to be traceable to IDMS. An eGFR <60 mL/min/1.73m2 for >3 months is consistent with chronic kidney disease. Refer to KDOQI guidelines for clinical interpretation. In patients with unstable renal function, e.g. those with acute kidney injury, the eGFR may not accurately reflect actual GFR. Performed By: #### CMP, HBA1C #### [facility] [address] [place], [place] [address] HEMOGLOBIN A1C Collected: 04/28/2018 Status: F Source: [place] 3:[address] [facility] REPOSITORY TYPE CODE TESTS RESULT OUT OF REFERENCE UNITS RANGE LAB HGBA1C 4.3-5.6 % High Hemoglobin A1c 7.0 LAB HBA0 mg/dL Est. Average Glucose 154 Result Comment: eAG: (Estimated average glucose) is a calculated value from HgbA1c and is medicare sales representative of the average blood glucose level in the last 2-3 month period. Performed By: #### CMP, HBA1C #### [facility] [address] [place], [place] [address] PROGRESS Observed: 03/10/2018 Status: COMPLETED Source: [place] 3:[address] [facility] REPOSITORY HNO ID: [id number] Author: Moises Sethi (Pharmacist) Service: (none) Author Type: Pharmacist Type: Progress Notes Filed: 03/10/2018 3:38 PM Note Text: Patient consents to pharmacy collaborative practice agreement. REASON FOR CONSULT: DM GOALS: A1c < 8% CONSULTING PROVIDER: Dr. Gagnon Date of Consult: 08/2017 Britney West is a 63 year old male was last seen in [facility] by PCP, Dr. Fabi Gagnon MD on 11/17/17. Also saw Lyndsey ZHU on 02/27 Patient is presenting today for f/u pharmacotherapy management appointment for DM. At last PharmD visit on 01/08 glipizide was increased from 5 to 10mg. INTERIM HISTORY: 02/27 patient started bupropion, gabapentin, and cyclobenzaprine Reports tolerating these medicines ok, feels he is less anxious than he used to be Denies questions or concerns today Checks BGs occasionally, FBG 130 this morning Does not bring glucometer in today Current DM Medications: Metformin ER 500mg take 2 tablets BID Glipizide XL 10 mg once daily Current HTN Medications: Lisinopril 10 mg once dialy Preventative Medications: ? On CHRISTIANO/ARB: Yes ? On Statin: No ? On ASA: Yes ROS: ? Patient denies CP, SOB, HIGHTOWER, blurred vision, dizziness or lightheadedness ? Patient denies symptoms of hypoglycemia (sweating, anxiety, palpitations, hunger, and tremor) ? Patient denies symptoms of hyperglycemia (polyuria, polydipsia, polyphagia) ? Patient denies potential medication adverse effects DIET/EXERCISE/SOCIAL Hx: Poor eating habits per patient, difficulty with financial constraints and buying healthy food ? Dinner: hot dogs or TV dinner ? Snacks: no ? Following Na restrictions: no ? Beverages: 5-6 cups coffee every morning, 2-3 during the day, with sweet-n-low ? Exercise: no ? Tobacco: 1-2 ppd, not interested in quitting ? Alcohol: denies ? Illicits: denies MEDICATIONS: ? Pill bottles are not present. ? Adherence: denies missed doses. ? [facility] Rx coverage: THIP ? Affordability: no issues ? Diabetes supplies: One Touch ? Organization System: none ACTIVE PROBLEM LIST Backache, Unspecified Copd With Chronic Bronchitis (Hcc) Degeneration of Lumbar Or Lumbosacral Intervertebral Disc Essential Hypertension Hyperlipidemia, Mixed Unspecified Sleep Apnea Hypertrophy of Prostate With Urinary Obstruction and Other Lower Urinary Tract Symptoms (Luts) Anxiety Metabolic Syndrome Diabetic Peripheral Neuropathy (Hcc) Diabetes Mellitus Type 2, Uncontrolled, Without Complications (Hcc) Pain Disorder With Psychological Component Reactive Depression Smoker Obesity (Bmi 30-39.9) PAST MEDICAL HISTORY Diagnosis Date - Alcohol abuse 2006(stopped) in remission - Benign neoplasm of colon - Carpal tunnel syndrome - Carpal tunnel syndrome, right 01/23/2012 - Cocaine abuse 2006 (stopped) In remission - Degeneration of lumbar or lumbosacral intervertebral disc - Depressive disorder, not elsewhere classified - Dermatophytosis of foot 01/19/2008 - Diabetes mellitus type 2 in obese (HCC) - Family history of malignant neoplasm of gastrointestinal tract - Frequency of urination 05/24/2014 - Hemorrhage of gastrointestinal tract, unspecified - History of pancreatitis 05/10/2014 States no longer drinks. Hx pancreatic pseudocysts- CT 2010 - Hyperplasia of prostate - Lateral epicondylitis of both elbows 02/13/2015 - Obesity, Class III, BMI >= 40 (morbid obesity) E66.01 05/12/2017 - SAAD (obstructive sleep apnea) 2013 CPAP therapy - Other specified disorder of rectum and anus 12/05/2008 - PMH - PAST MEDICAL HISTORY OF macular degeration - PMH - PAST MEDICAL HISTORY OF CTS - Urinary retention 05/24/2014 ALLERGIES Allergen Reactions - Cipro [Ciprofloxaci* - Duloxetine Other: See Comments Caused severe Vertigo, increased his BS - Simvastatin Other: See Comments Myalgia. - Venlafaxine Other: See Comments Chewing on his tongue Current Outpatient Prescriptions: gabapentin (NEURONTIN) 300 mg capsule Take 1 capsule by mouth three times daily. cyclobenzaprine (FLEXERIL) 10 mg tablet Take 1 tablet by mouth three times daily as needed for Muscle Spasm. buPROPion SR (WELLBUTRIN SR) 150 mg 12 hr tablet Take 1 tablet by mouth once daily. umeclidinium-vilanterol (ANORO ELLIPTA) 62.5-25 mcg/actuation inhaler Inhale 1 Inhalation as instructed once daily. metFORMIN ER (GLUCOPHAGE XR) 500 mg 24 hr tablet 1000 mg at breakfast and supper glipiZIDE XL (GLUCOTROL XL) 10 mg 24 hr tablet Take 1 tablet by mouth once daily. VENTOLIN HFA 90 mcg/actuation inhaler Inhale 2 Puffs as instructed every 4 hours as needed. traMADol (ULTRAM) 50 mg tablet Take 1 tablet by mouth every 6 hours as needed for Pain. naproxen (NAPROSYN) 500 mg tablet Take 1 tablet by mouth twice daily with meals. Take with food. diazePAM (VALIUM) 5 mg tablet Take 1 tablet by mouth every 6 hours as needed. blood sugar diagnostic (Salt RightsUCH ULTRA TEST) test strip 1 Strip three times daily. Test blood sugar(s) 3 times daily. Dx: E11.65 Insulin: No. Uncontrolled/ fluctuating sugar. lisinopril (ZESTRIL, PRINIVIL) 10 mg tablet Take 1 tablet by mouth once daily. CPAP Initiate CPAP @ 17 cm of water with humidification. Mask (per patient preference) optional chin strap (if indicated) , filters, tubing, humidifier and lifetime supplies. multivitamin tablet Take 1 tablet by mouth once daily. Cholecalciferol, Vitamin D3, 5,000 unit cap Take 10,000 Units by mouth once daily. Lancets (ONE TOUCH ULTRASOFT LANCETS) lancets Test blood sugar(s) 1 times daily. Dx: 250.00, Insulin: No naftifine (NAFTIN) 2 % crea Apply 1 application to affected area once daily. Blood-Glucose Meter (ONE TOUCH ULTRA SYSTEM KIT) monitoring kit 1 Each three times daily. (For uncontrolled/variable sugars 250.02) No current facility-administered medications for this visit. Rx meds not listed in EPIC: none OTCs: none Herbals: none GLYCEMIC CONTROL: ? Glucometer present at visit: No ? SMBG?s: reported FBG today 130 ? Hypoglycemia: denies Last 3 Encounter BP Readings: Date: BP: 02/27/2018 132/72 02/16/2018 132/76 11/17/2017 138/62 Wt: 115.2 kg (254 lb) BMI: 38.62 kg/(m2) LABS Lab Results Component Value Date HBA1C 7.8 01/08/2018 HBA1C 11.0 08/30/2017 HBA1C 7.9 05/09/2017 CMP: Glucose 113 01/08/2018 BUN 14 01/08/2018 Creatinine 0.83 01/08/2018 Sodium 141 01/08/2018 Potassium 3.9 01/08/2018 Chloride 99 01/08/2018 CO2 27 01/08/2018 Protein, Total 6.9 01/08/2018 Albumin 4.2 01/08/2018 Calcium 9.0 01/08/2018 Alkaline Phosphatase 69 01/08/2018 Bilirubin, Total 0.2 01/08/2018 AST 24 01/08/2018 ALT 41 01/08/2018 Estimated Creatinine Clearance: 112.2 mL/min (based on Cr of 0.83). Last Lipid Panel Lab Results Component Value Date CHOL 171 08/30/2017 Lab Results Component Value Date HDL 27 08/30/2017 Lab Results Component Value Date LDL 110 08/30/2017 Lab Results Component Value Date TG 170 08/30/2017 No results found for: UALBCR PHARMACOTHERAPY ASSESSMENT/PLAN: 1. Uncontrolled type 2 diabetes mellitus without complication, without long-term current use of insulin (HCC) - ICD9: 250.02, ICD10: E11.65 (primary diagnosis) A1c goal < 8%, patient is at goal (7.8% on 01/08/18). SMBG data limited but reported to be at goal. Patient compliant with and tolerating current regimen. Will continue at this time. Renal fxn and LFTs WNL and appropriate for continued therapy ? CONTINUE metformin ER 1,000mg BID and glipizide XL 10mg once daily ? Instructed patient to continue checking FBGs few times per week ? A1c, CMP in March 2. Essential hypertension - ICD9: 401.9, ICD10: I10 BP goal < 214[address], pt is at goal on current therapy. Patient compliant with and tolerating current regimen. Will continue. Renal fxn and K+ WNL and appropriate for continued therapy. ? CONTINUE lisinopril 10mg once daily 3. Hyperlipidemia, mixed - ICD9: 272.2, ICD10: E78.2 Pt is not currently prescribed statin intensity (noted myalgia with simvastatin). indicated for high?intensity d/t DM and ASCVD risk score 42%. Patient prefers not to take. Will discuss again at future visits. Preventive care - patient not taking aspirin 81mg d/t taking aspirin for pain PRN - patient would benefit from aspirin 81mg for primary CVD prevention. Will discuss aspirin use again at future visits Health Maintenance issues addressed: DIABETIC FOOT EXAM due on 10/16/2016 URINE ALBUMIN CREATININE RATIO due on 06/29/2017 Patient is scheduled to see PCP 05/05/18. Patient to return to clinic for PharmD f/u as requested by patient or PCP. Patient verbalized understanding of instructions. Moises Sethi PharmD, BCPS CNOV Observed: 03/10/2018 Status: COMPLETED Source: [place] 3:00 PM [facility] REPOSITORY Office Visit ([facility]) BRETTBRITNEY Bunny ([id number]) 1955 M NFR Date Time Provider Department 03/10/18 3:00 PM NIYAH (PHARMACIST), MOISES AARON During your visit today, we recorded the following information about you: ISAEL LORD 03/10/2018 3:38 PM Signed Patient consents to pharmacy collaborative practice agreement. REASON FOR CONSULT: DM GOALS: A1c ANDlt; 8% CONSULTING PROVIDER: Dr. Gagnon Date of Consult: 08/2017 Britney Hollis Ivanna is a 63 year old male was last seen in [facility] by PCP, Dr. Fabi Gagnon MD on 11/17/17. Also saw Lyndsey Salinas [facility] on 02/27 Patient is presenting today for f/u pharmacotherapy management appointment for DM. At last PharmD visit on 01/08 glipizide was increased from 5 to 10mg. INTERIM HISTORY: 02/27 patient started bupropion, gabapentin, and cyclobenzaprine Reports tolerating these medicines ok, feels he is less anxious than he used to be Denies questions or concerns today Checks BGs occasionally, FBG 130 this morning Does not bring glucometer in today Current DM Medications: Metformin ER 500mg take 2 tablets BID Glipizide XL 10 mg once daily Current HTN Medications: Lisinopril 10 mg once dialy Preventative Medications: ? On CHRISTIANO/ARB: Yes ? On Statin: No ? On ASA: Yes ROS: ? Patient denies CP, SOB, HIGHTOWER, blurred vision, dizziness or lightheadedness ? Patient denies symptoms of hypoglycemia (sweating, anxiety, palpitations, hunger, and tremor) ? Patient denies symptoms of hyperglycemia (polyuria, polydipsia, polyphagia) ? Patient denies potential medication adverse effects DIET/EXERCISE/SOCIAL Hx: Poor eating habits per patient, difficulty with financial constraints and buying healthy food ? Dinner: hot dogs or TV dinner ? Snacks: no ? Following Na restrictions: no ? Beverages: 5-6 cups coffee every morning, 2-3 during the day, with sweet-n-low ? Exercise: no ? Tobacco: 1-2 ppd, not interested in quitting ? Alcohol: denies ? Illicits: denies MEDICATIONS: ? Pill bottles are not present. ? Adherence: denies missed doses. ? [facility] Rx coverage: THIP ? Affordability: no issues ? Diabetes supplies: One Touch ? Organization System: none ACTIVE PROBLEM LIST Backache, Unspecified Copd With Chronic Bronchitis (Hcc) Degeneration of Lumbar Or Lumbosacral Intervertebral Disc Essential Hypertension Hyperlipidemia, Mixed Unspecified Sleep Apnea Hypertrophy of Prostate With Urinary Obstruction and Other Lower Urinary Tract Symptoms (Luts) Anxiety Metabolic Syndrome Diabetic Peripheral Neuropathy (Hcc) Diabetes Mellitus Type 2, Uncontrolled, Without Complications (Hcc) Pain Disorder With Psychological Component Reactive Depression Smoker Obesity (Bmi 30-39.9) PAST MEDICAL HISTORY Diagnosis Date - Alcohol abuse 2006(stopped) in remission - Benign neoplasm of colon - Carpal tunnel syndrome - Carpal tunnel syndrome, right 01/23/2012 - Cocaine abuse 2006 (stopped) In remission - Degeneration of lumbar or lumbosacral intervertebral disc - Depressive disorder, not elsewhere classified - Dermatophytosis of foot 01/19/2008 - Diabetes mellitus type 2 in obese (HCC) - Family history of malignant neoplasm of gastrointestinal tract - Frequency of urination 05/24/2014 - Hemorrhage of gastrointestinal tract, unspecified - History of pancreatitis 05/10/2014 States no longer drinks. Hx pancreatic pseudocysts- CT 2010 - Hyperplasia of prostate - Lateral epicondylitis of both elbows 02/13/2015 - Obesity, Class III, BMI ANDgt;= 40 (morbid obesity) E66.01 05/12/2017 - SAAD (obstructive sleep apnea) 2013 CPAP therapy - Other specified disorder of rectum and anus 12/05/2008 - PMH - PAST MEDICAL HISTORY OF macular degeration - PMH - PAST MEDICAL HISTORY OF CTS - Urinary retention 05/24/2014 ALLERGIES Allergen Reactions - Cipro [Ciprofloxaci* - Duloxetine Other: See Comments Caused severe Vertigo, increased his BS - Simvastatin Other: See Comments Myalgia. - Venlafaxine Other: See Comments Chewing on his tongue Current Outpatient Prescriptions: gabapentin (NEURONTIN) 300 mg capsule Take 1 capsule by mouth three times daily. cyclobenzaprine (FLEXERIL) 10 mg tablet Take 1 tablet by mouth three times daily as needed for Muscle Spasm. buPROPion SR (WELLBUTRIN SR) 150 mg 12 hr tablet Take 1 tablet by mouth once daily. umeclidinium-vilanterol (ANORO ELLIPTA) 62.5-25 mcg/actuation inhaler Inhale 1 Inhalation as instructed once daily. metFORMIN ER (GLUCOPHAGE XR) 500 mg 24 hr tablet 1000 mg at breakfast and supper glipiZIDE XL (GLUCOTROL XL) 10 mg 24 hr tablet Take 1 tablet by mouth once daily. VENTOLIN HFA 90 mcg/actuation inhaler Inhale 2 Puffs as instructed every 4 hours as needed. traMADol (ULTRAM) 50 mg tablet Take 1 tablet by mouth every 6 hours as needed for Pain. naproxen (NAPROSYN) 500 mg tablet Take 1 tablet by mouth twice daily with meals. Take with food. diazePAM (VALIUM) 5 mg tablet Take 1 tablet by mouth every 6 hours as needed. blood sugar diagnostic (ONETOUCH ULTRA TEST) test strip 1 Strip three times daily. Test blood sugar(s) 3 times daily. Dx: E11.65 Insulin: No. Uncontrolled/ fluctuating sugar. lisinopril (ZESTRIL, PRINIVIL) 10 mg tablet Take 1 tablet by mouth once daily. CPAP Initiate CPAP @ 17 cm of water with humidification. Mask (per patient preference) optional chin strap (if indicated) , filters, tubing, humidifier and lifetime supplies. multivitamin tablet Take 1 tablet by mouth once daily. Cholecalciferol, Vitamin D3, 5,000 unit cap Take 10,000 Units by mouth once daily. Lancets (ONE TOUCH ULTRASOFT LANCETS) lancets Test blood sugar(s) 1 times daily. Dx: 250.00, Insulin: No naftifine (NAFTIN) 2 % crea Apply 1 application to affected area once daily. Blood-Glucose Meter (ONE TOUCH ULTRA SYSTEM KIT) monitoring kit 1 Each three times daily. (For uncontrolled/variable sugars 250.02) No current facility-administered medications for this visit. Rx meds not listed in EPIC: none OTCs: none Herbals: none GLYCEMIC CONTROL: ? Glucometer present at visit: No ? SMBG?s: reported FBG today 130 ? Hypoglycemia: denies Last 3 Encounter BP Readings: Date: BP: 02/27/2018 132/72 02/16/2018 132/76 11/17/2017 138/62 Wt: 115.2 kg (254 lb) BMI: 38.62 kg/(m2) LABS Lab Results Component Value Date HBA1C 7.8 01/08/2018 HBA1C 11.0 08/30/2017 HBA1C 7.9 05/09/2017 CMP: Glucose 113 01/08/2018 BUN 14 01/08/2018 Creatinine 0.83 01/08/2018 Sodium 141 01/08/2018 Potassium 3.9 01/08/2018 Chloride 99 01/08/2018 CO2 27 01/08/2018 Protein, Total 6.9 01/08/2018 Albumin 4.2 01/08/2018 Calcium 9.0 01/08/2018 Alkaline Phosphatase 69 01/08/2018 Bilirubin, Total 0.2 01/08/2018 AST 24 01/08/2018 ALT 41 01/08/2018 Estimated Creatinine Clearance: 112.2 mL/min (based on Cr of 0.83). Last Lipid Panel Lab Results Component Value Date CHOL 171 08/30/2017 Lab Results Component Value Date HDL 27 08/30/2017 Lab Results Component Value Date LDL 110 08/30/2017 Lab Results Component Value Date TG 170 08/30/2017 No results found for: UALBCR PHARMACOTHERAPY ASSESSMENT/PLAN: 1. Uncontrolled type 2 diabetes mellitus without complication, without long-term current use of insulin ([facility]) - ICD9: 250.02, ICD10: E11.65 (primary diagnosis) A1c goal ANDlt; 8%, patient is at goal (7.8% on 01/08/18). SMBG data limited but reported to be at goal. Patient compliant with and tolerating current regimen. Will continue at this time. Renal fxn and LFTs WNL and appropriate for continued therapy ? CONTINUE metformin ER 1,000mg BID and glipizide XL 10mg once daily ? Instructed patient to continue checking FBGs few times per week ? A1c, CMP in March 2. Essential hypertension - ICD9: 401.9, ICD10: I10 BP goal ANDlt; 73023, pt is at goal on current therapy. Patient compliant with and tolerating current regimen. Will continue. Renal fxn and K+ WNL and appropriate for continued therapy. ? CONTINUE lisinopril 10mg once daily 3. Hyperlipidemia, mixed - ICD9: 272.2, ICD10: E78.2 Pt is not currently prescribed statin intensity (noted myalgia with simvastatin). indicated for high?intensity d/t DM and ASCVD risk score 42%. Patient prefers not to take. Will discuss again at future visits. Preventive care - patient not taking aspirin 81mg d/t taking aspirin for pain PRN - patient would benefit from aspirin 81mg for primary CVD prevention. Will discuss aspirin use again at future visits Health Maintenance issues addressed: DIABETIC FOOT EXAM due on 10/16/2016 URINE ALBUMIN CREATININE RATIO due on 06/29/2017 Patient is scheduled to see PCP 05/05/18. Patient to return to clinic for PharmD f/u as requested by patient or PCP. Patient verbalized understanding of instructions. Moises Sethi, PharmD, BCPS Referring Provider: FABI GAGNON [[id number]] Allergies As of Date: 03/10/2018 Noted Allergy Reaction CIPRO (CIPROFLOXACIN) 02/27/2006 DULOXETINE 04/18/2017 14 - Other: See Comments Comments: Caused severe Vertigo, increased his BS SIMVASTATIN 07/05/2013 14 - Other: See Comments Comments: Myalgia. VENLAFAXINE 03/06/2015 14 - Other: See Comments Comments: Chewing on his tongue Date Reviewed: 02/27/2018 Reviewed by: Michaela Leggett LPN - Fully Assessed Reason for Visit: Allied Health Visit [5] Cmt: DM follow-up Primary Visit Diagnosis:Uncontrolled type 2 diabetes mellitus without complication, without long-term current use of insulin (HCC) [E11.65] Other Visit Diagnoses:Essential hypertension [I10] Hyperlipidemia, mixed [E78.2] Order(s):glipiZIDE XL (GLUCOTROL XL) 10 mg 24 hr tabletTake 1 tablet by mouth once daily.Disp: 30 tabletRfl: 5 COMP METABOLIC PANEL [SQCMP] Order #: [id number] FUTURE HGB A1C [[id number]] Order #: [id number] FUTURE Prescriptions as of 03/10/2018 Sig: GLIPIZIDE ER 10 MG TABLET, EX* Take 1 tablet by mouth once d* METFORMIN ER 500 MG TABLET,EX* 1000 mg at breakfast and supp* GABAPENTIN 300 MG CAPSULE Take 1 capsule by mouth three* CYCLOBENZAPRINE 10 MG TABLET Take 1 tablet by mouth three * BUPROPION HCL SR 150 MG TABLE* Take 1 tablet by mouth once d* UMECLIDINIUM 62.5 MCG-VILANTE* Inhale 1 Inhalation as instru* VENTOLIN HFA 90 MCG/ACTUATION* Inhale 2 Puffs as instructed * TRAMADOL 50 MG TABLET Take 1 tablet by mouth every * NAPROXEN 500 MG TABLET Take 1 tablet by mouth twice * DIAZEPAM 5 MG TABLET Take 1 tablet by mouth every * BLOOD SUGAR DIAGNOSTIC STRIPS 1 Strip three times daily. Te* LISINOPRIL 10 MG TABLET Take 1 tablet by mouth once d* CPAP Initiate CPAP @ 17 cm of wate* MULTIVITAMIN TABLET Take 1 tablet by mouth once d* CHOLECALCIFEROL (VITAMIN D3) * Take 10,000 Units by mouth on* LANCETS Test blood sugar(s) 1 times * NAFTIFINE 2 % TOPICAL CREAM Apply 1 application to affect* BLOOD-GLUCOSE METER KIT 1 Each three times daily. (Fo* Problem List As Of Date 03/10/2018 Noted Resolved BACKACHE NOS [M54.9] INVALID FOR* COPD with chronic bronchitis (HCC) [J44.9] INVALID FOR* LUMB/LUMBOSAC DISC DEGEN [M51.37] INVALID FOR* Other Abnormal Glucose [R73.09] INVALID FOR*07/06/2010 Thoracic or Lumbosacral Neuritis or Radiculitis*INVALID FOR*04/10/2010 Pain in Joint, Lower Leg [M25.569] INVALID FOR*04/10/2010 Essential hypertension [I10] INVALID FOR* Hyperlipidemia, mixed [E78.2] INVALID FOR* More... SLEEP APNEA NOS [G47.30] INVALID FOR* Pruritus Ani [L29.0] INVALID FOR*04/10/2010 Anal or Rectal Pain [K62.89] INVALID FOR*04/10/2010 Other Symptoms Involving Digestive System [R19.*INVALID FOR*04/10/2010 Blood in Stool [K92.1] INVALID FOR*04/10/2010 BPH W URINARY OBS/LUTS [N40.1] INVALID FOR* Anxiety [F41.9] INVALID FOR* Metabolic Syndrome [E88.81] INVALID FOR* Abnormal CXR (chest x-ray) [R93.8] INVALID FOR*01/06/2012 Syncope [R55] INVALID FOR*01/06/2012 Carpal tunnel syndrome, left [G56.02] INVALID FOR*02/24/2012 Diabetic peripheral neuropathy [E11.42] INVALID FOR* Diabetes mellitus type 2, uncontrolled, without*INVALID FOR* More... Pain disorder with psychological component [F45*INVALID FOR* Reactive depression [F32.9] INVALID FOR* Smoker [F17.200] INVALID FOR* Obesity (BMI 30-39.9) [E66.9] INVALID FOR* Prescriptions ordered this encounter Disp Refills Start End GLIPIZIDE ER 10 MG TABLET, EXTENDED * 30 t* 5 03/10/2018 Route: ORAL Sig: Take 1 tablet by mouth once daily. Medications Discontinued During This Encounter glipiZIDE XL (GLUCOTROL XL) 10 mg 24* 30 t* 1 01/08/2018 03/10/2018 Route: ORAL Sig: Take 1 tablet by mouth once daily. Disc: Reason for discontinue is not on file. Encounter Status:Closed by NIYAH (PHARMACIST)MOISES on 03/10/18 MAT Observed: 02/27/2018 Status: COMPLETED Source: [place] 3:00 PM [facility] REPOSITORY Office Visit (INTMWS) BRITNEY WEST ([id number]) 1955 M NFR Date Time Provider Department 02/27/18 3:00 PM LYNDSEY SALINAS (MARKO) INTMWS During your visit today, we recorded the following information about you: Pulse Respiration Blood pressure Weight 96/minute 16/minute 132/72 115.2 kg Lyndsey Salinas APRN.CNS 02/27/2018 3:54 PM Signed OUTPATIENT VISIT DATE February 27, 2018 OUTPATIENT VISIT TYPE ESTABLISHED PRIMARY CARE PHYSICIAN: Fabi Gagnon MD CHIEF COMPLAINT: Patient presents with: Pain: bilateral leg pain ANDamp; back pain Anxiety History of Present Illness: Britney West is a 63 year old male who was last seen 10/2017 by Fabi Gagnon MD. He has been seen in the past for ACTIVE PROBLEM LIST Backache, Unspecified Copd With Chronic Bronchitis (Hcc) Degeneration of Lumbar Or Lumbosacral Intervertebral Disc Essential Hypertension Hyperlipidemia, Mixed Unspecified Sleep Apnea Hypertrophy of Prostate With Urinary Obstruction and Other Lower Urinary Tract Symptoms (Luts) Anxiety Metabolic Syndrome Diabetic Peripheral Neuropathy (Hcc) Diabetes Mellitus Type 2, Uncontrolled, Without Complications (Hcc) Pain Disorder With Psychological Component Reactive Depression Smoker Obesity (Bmi 30-39.9) Since the last visit, he missed appt to establish care with Fabi Gagnon MD. he will reschedule his appointment for May. Since last here he has been seen by orthopedic doctor. He reports that the orthopedic physician told him that he would prefer not to do surgery due to his 2 pack-a-day smoking history. No current exercise or physical therapy. Has used Neurontin and Flexeril in the past with relief of back pain. Currently with nerve pain in both legs hips and thighs, increased when standing still. No change in gait or ability to walk, no loss of bowel or bladder control, no saddle anesthesia reported. Separately reports anxiety and anger issues, reports intolerance of prior medication but is not sure which one this was. Notes angers easily and persists for hours. He notes that he dwells on upsetting issues for hours. He reports seeing Dr. Goncalves in the past but not currently. No voiced HI, SI. Diabetes currently well controlled, no AE of medications. Reports decreased intake due to mood. PAST MEDICAL HISTORY Diagnosis Date - Alcohol abuse 2006(stopped) in remission - Benign neoplasm of colon - Carpal tunnel syndrome - Carpal tunnel syndrome, right 01/23/2012 - Cocaine abuse 2006 (stopped) In remission - Degeneration of lumbar or lumbosacral intervertebral disc - Depressive disorder, not elsewhere classified - Dermatophytosis of foot 01/19/2008 - Diabetes mellitus type 2 in obese (HCC) - Family history of malignant neoplasm of gastrointestinal tract - Frequency of urination 05/24/2014 - Hemorrhage of gastrointestinal tract, unspecified - History of pancreatitis 05/10/2014 States no longer drinks. Hx pancreatic pseudocysts- CT 2010 - Hyperplasia of prostate - Lateral epicondylitis of both elbows 02/13/2015 - Obesity, Class III, BMI ANDgt;= 40 (morbid obesity) E66.01 05/12/2017 - SAAD (obstructive sleep apnea) 2013 CPAP therapy - Other specified disorder of rectum and anus 12/05/2008 - PMH - PAST MEDICAL HISTORY OF macular degeration - PMH - PAST MEDICAL HISTORY OF CTS - Urinary retention 05/24/2014 PAST SURGICAL HISTORY Procedure Laterality Date - COLONOS W/REM POLYP SNARE 09/02/08 two small polyps rectum - ablated - COLONOSCOP W/ OR W/O [facility] SPEC 01/30/00 Colonoscopy - COLONOSCOP W/ OR W/O [facility] SPEC 08/06/2013 Colonoscopy - LAMINECTOMY,LUMBAR Laminectomy, lumbar - REMV CATARACT EXTRACAP,INSERT LENS Left 03/2015 Cataract Extraction with PC IOL - [facility]IAN N/CARPAL TUNNEL SURG 2012 Carpal tunnel decomp left FAMILY HISTORY Problem Relation Age of Onset - Cancer Mother - Colon Cancer Father - Diabetes Father - Multiple Sclerosis Brother - Multiple Sclerosis Brother - Cancer Sister liver - Cancer Brother lung Social History Substance Use Topics - Smoking status: Current Every Day Smoker Packs/day: 2.00 Years: 43.00 Types: Cigarettes Start date: 12/01/1965 - Smokeless tobacco: Never Used Comment: STOPPED nicotine patch - Alcohol use No Comment: occasional ALLERGIES: ALLERGIES Allergen Reactions - Cipro [Ciprofloxaci* - Duloxetine Other: See Comments Caused severe Vertigo, increased his BS - Simvastatin Other: See Comments Myalgia. - Venlafaxine Other: See Comments Chewing on his tongue MEDICATIONS gabapentin (NEURONTIN) 300 mg capsule Take 1 capsule by mouth three times daily. cyclobenzaprine (FLEXERIL) 10 mg tablet Take 1 tablet by mouth three times daily as needed for Muscle Spasm. buPROPion SR (WELLBUTRIN SR) 150 mg 12 hr tablet Take 1 tablet by mouth once daily. umeclidinium-vilanterol (ANORO ELLIPTA) 62.5-25 mcg/actuation inhaler Inhale 1 Inhalation as instructed once daily. metFORMIN ER (GLUCOPHAGE XR) 500 mg 24 hr tablet 1000 mg at breakfast and supper glipiZIDE XL (GLUCOTROL XL) 10 mg 24 hr tablet Take 1 tablet by mouth once daily. VENTOLIN HFA 90 mcg/actuation inhaler Inhale 2 Puffs as instructed every 4 hours as needed. traMADol (ULTRAM) 50 mg tablet Take 1 tablet by mouth every 6 hours as needed for Pain. naproxen (NAPROSYN) 500 mg tablet Take 1 tablet by mouth twice daily with meals. Take with food. diazePAM (VALIUM) 5 mg tablet Take 1 tablet by mouth every 6 hours as needed. blood sugar diagnostic (ONETOUCH ULTRA TEST) test strip 1 Strip three times daily. Test blood sugar(s) 3 times daily. Dx: E11.65 Insulin: No. Uncontrolled/ fluctuating sugar. lisinopril (ZESTRIL, PRINIVIL) 10 mg tablet Take 1 tablet by mouth once daily. CPAP Initiate CPAP @ 17 cm of water with humidification. Mask (per patient preference) optional chin strap (if indicated) , filters, tubing, humidifier and lifetime supplies. multivitamin tablet Take 1 tablet by mouth once daily. Cholecalciferol, Vitamin D3, 5,000 unit cap Take 10,000 Units by mouth once daily. Lancets (ONE TOUCH ULTRASOFT LANCETS) lancets Test blood sugar(s) 1 times daily. Dx: 250.00, Insulin: No naftifine (NAFTIN) 2 % crea Apply 1 application to affected area once daily. Blood-Glucose Meter (ONE TOUCH ULTRA SYSTEM KIT) monitoring kit 1 Each three times daily. (For uncontrolled/variable sugars 250.02) REVIEW OF SYSTEMS: GENERAL: Negative for: Weight loss or gain, Fever or Chills, Weakness and Sleep difficulties. Physical Examination: BP 132/72 Pulse 96 Resp 16 Wt 254 lb (115.2kg) Extended Vitals not filed for this encounter. General appearance: Well appearing, alert, in no acute distress, well-hydrated, well nourished. Skin: Skin color, texture, turgor normal, no suspicious rashes or lesions Neuro: Gait normal. . Sensation grossly intact. Reviewed chart, outside records, tests OARRS website checked and validated. All prescriptions have been APPROPRIATELY filled. No suspicious activity was identified.- 02/27/2018 by Lyndsey Salinas APRN.FINANCIAL INVESTMENT ADVISER I personally interviewed, confirmed and edited the above information if obtained by others. TESTING: Glucose (mg/dL) Date Value 01/08/2018 113 Potassium (mmol/L) Date Value 01/08/2018 3.9 Sodium (mmol/L) Date Value 01/08/2018 141 Chloride (mmol/L) Date Value 01/08/2018 99 CO2 (mmol/L) Date Value 01/08/2018 27 Creatinine (mg/dL) Date Value 01/08/2018 0.83 BUN (mg/dL) Date Value 01/08/2018 14 Anion Gap (mmol/L) Date Value 01/08/2018 15 Calcium (mg/dL) Date Value 01/08/2018 9.0 Glucose (mg/dL) Date Value 01/08/2018 113 Potassium (mmol/L) Date Value 01/08/2018 3.9 Sodium (mmol/L) Date Value 01/08/2018 141 Chloride (mmol/L) Date Value 01/08/2018 99 CO2 (mmol/L) Date Value 01/08/2018 27 Creatinine (mg/dL) Date Value 01/08/2018 0.83 BUN (mg/dL) Date Value 01/08/2018 14 Anion Gap (mmol/L) Date Value 01/08/2018 15 Calcium (mg/dL) Date Value 01/08/2018 9.0 Protein, Total (g/dL) Date Value 01/08/2018 6.9 Albumin (g/dL) Date Value 01/08/2018 4.2 Bilirubin, Total (mg/dL) Date Value 01/08/2018 0.2 Alkaline Phosphatase (U/L) Date Value 01/08/2018 69 AST (U/L) Date Value 01/08/2018 24 ALT (U/L) Date Value 01/08/2018 41 Hemoglobin (g/dL) Date Value 02/24/2017 15.4 Hematocrit (%) Date Value 02/24/2017 48.0 WBC (k/uL) Date Value 02/24/2017 10.56 Cholesterol, Total (mg/dL) Date Value 08/30/2017 171 HDL Cholesterol (mg/dL) Date Value 08/30/2017 27 LDL Cholesterol (mg/dL) Date Value 08/30/2017 110 Triglyceride (mg/dL) Date Value 08/30/2017 170 Hemoglobin A1C Date Value Ref Range Status 01/08/2018 7.8 (H) 4.3 - 5.6 % Final 08/30/2017 11.0 (H) 4.3 - 5.6 % Final Comment: [employer] Diabetes Association guidelines indicate that patients with HgbA1c in the range 5.7-6.4% are at increased risk for development of diabetes, and intervention by lifestyle modification may be beneficial. HgbA1c greater or equal to 6.5% is considered diagnostic of diabetes. 05/09/2017 7.9 (H) 4.3 - 5.6 % Final Comment: Stateless Diabetes Association guidelines indicate that patients with HgbA1c in the range 5.7-6.4% are at increased risk for development of diabetes, and intervention by lifestyle modification may be beneficial. HgbA1c greater or equal to 6.5% is considered diagnostic of diabetes. 02/24/2017 10.1 (H) 4.3 - 5.6 % Final Comment: Stateless Diabetes Association guidelines indicate that patients with HgbA1c in the range 5.7-6.4% are at increased risk for development of diabetes, and intervention by lifestyle modification may be beneficial. HgbA1c greater or equal to 6.5% is considered diagnostic of diabetes. 11/02/2016 8.2 (H) 4.3 - 5.6 % Final Comment: Stateless Diabetes Association guidelines indicate that patients with HgbA1c in the range 5.7-6.4% are at increased risk for development of diabetes, and intervention by lifestyle modification may be beneficial. HgbA1c greater or equal to 6.5% is considered diagnostic of diabetes. Ejection Fraction: No results found IMPRESSION: Mr. West is a 63 year old man presents with chronic back pain, anger and anxiety. After my examination and review of data, I make the following recommendations. PLAN AND RECOMMENDATIONS: 1. Anxiety - ICD9: 300.00, ICD10: F41.9 (primary diagnosis) Referring to counseling Center. Reports prior intolerance to antianxiety medication. Advised to start taking Wellbutrin once daily, if any adverse effects advised to stop. - BUPROPION HCL SR 150 MG TABLET,12 HR SUSTAINED-RELEASE - CONSULT TO PSYCHIATRY 2. Chronic left-sided low back pain with left-sided sciatica - ICD9: 724.2, 724.3, 338.29, ICD10: M54.42, G89.29 Reports seeing orthopedic physician and advised he was not a candidate for surgery due to currently smoking 2 packs daily. Currently going to physical therapy. {Would like to resume medications for back pain - GABAPENTIN 300 MG CAPSULE - CYCLOBENZAPRINE 10 MG TABLET Start taking gabapentin once daily at bedtime. Can add one tablet daily every 3 days until taking 3 tablets daily (every eight hours). May make drowsy. Flexeril as needed for back pain. May make drowsy. 3. Uncontrolled type 2 diabetes mellitus without complication, without long-term current use of insulin (HCC) - ICD9: 250.02, ICD10: E11.65 Significantly improved control on recent labs - Continue current medications 4. Difficulty controlling anger - ICD9: 799.29, ICD10: R45.4 - BUPROPION HCL SR 150 MG TABLET,12 HR SUSTAINED-RELEASE - CONSULT TO PSYCHIATRY 5. Smoker - ICD9: 305.1, ICD10: F17.200 Cessation endorsed, not yet ready to quit. Contemplating quitting. - BUPROPION HCL SR 150 MG TABLET,12 HR SUSTAINED-RELEASE Advised to go to ER if develops chest pain, shortness of breath, or severe worsening of symptoms. Discussed risks, benefits, alternatives, and potential side effects of medications. Mr. West expressed understanding and agreed with the plan. Lyndsey Salinas APRN.FINANCIAL INVESTMENT ADVISER Lyndsey Salinas APRN.FINANCIAL INVESTMENT ADVISER 02/27/2018 3:31 PM Signed Start taking wellbutrin once daily for mood Make appointment with counseling center. Start taking gabapentin once daily at bedtime. Can add one tablet daily every 3 days until taking 3 tablets daily (every eight hours). May make drowsy. Flexeril as needed for back pain. May make drowsy. Referring Provider: SELF [[id number]] Allergies As of Date: 02/27/2018 Noted Allergy Reaction CIPRO (CIPROFLOXACIN) 02/27/2006 DULOXETINE 04/18/2017 14 - Other: See Comments Comments: Caused severe Vertigo, increased his BS SIMVASTATIN 07/05/2013 14 - Other: See Comments Comments: Myalgia. VENLAFAXINE 03/06/2015 14 - Other: See Comments Comments: Chewing on his tongue Date Reviewed: 02/27/2018 Reviewed by: Michaela Leggett LPN - Fully Assessed Reason for Visit: Pain [78] Cmt: bilateral leg pain AND back pain Anxiety [9] Primary Visit Diagnosis:Anxiety [F41.9] Other Visit Diagnoses:Chronic left-sided low back pain with left-sided sciatica [M54.42, G89.29] Uncontrolled type 2 diabetes mellitus without complication, without long-term current use of insulin ([facility]) [E11.65] Difficulty controlling anger [R45.4] Smoker [F17.200] Order(s):gabapentin (NEURONTIN) 300 mg capsuleTake 1 capsule by mouth three times daily.Disp: 90 capsuleRfl: 11 cyclobenzaprine (FLEXERIL) 10 mg tabletTake 1 tablet by mouth three times daily as needed for Muscle Spasm.Disp: 30 tabletRfl: 2 buPROPion SR (WELLBUTRIN SR) 150 mg 12 hr tabletTake 1 tablet by mouth once daily.Disp: 30 tabletRfl: 11 CONSULT TO PSYCHIATRY [9034] Order #: [id number]: 1 Prescriptions as of 02/27/2018 Sig: GABAPENTIN 300 MG CAPSULE Take 1 capsule by mouth three* CYCLOBENZAPRINE 10 MG TABLET Take 1 tablet by mouth three * BUPROPION HCL SR 150 MG TABLE* Take 1 tablet by mouth once d* UMECLIDINIUM 62.5 MCG-VILANTE* Inhale 1 Inhalation as instru* METFORMIN ER 500 MG TABLET,EX* 1000 mg at breakfast and supp* GLIPIZIDE ER 10 MG TABLET, EX* Take 1 tablet by mouth once d* VENTOLIN HFA 90 MCG/ACTUATION* Inhale 2 Puffs as instructed * TRAMADOL 50 MG TABLET Take 1 tablet by mouth every * NAPROXEN 500 MG TABLET Take 1 tablet by mouth twice * DIAZEPAM 5 MG TABLET Take 1 tablet by mouth every * BLOOD SUGAR DIAGNOSTIC STRIPS 1 Strip three times daily. Te* LISINOPRIL 10 MG TABLET Take 1 tablet by mouth once d* CPAP Initiate CPAP @ 17 cm of wate* MULTIVITAMIN TABLET Take 1 tablet by mouth once d* CHOLECALCIFEROL (VITAMIN D3) * Take 10,000 Units by mouth on* LANCETS Test blood sugar(s) 1 times * NAFTIFINE 2 % TOPICAL CREAM Apply 1 application to affect* BLOOD-GLUCOSE METER KIT 1 Each three times daily. (Fo* Problem List As Of Date 02/27/2018 Noted Resolved BACKACHE NOS [M54.9] INVALID FOR* COPD with chronic bronchitis (HCC) [J44.9] INVALID FOR* LUMB/LUMBOSAC DISC DEGEN [M51.37] INVALID FOR* Other Abnormal Glucose [R73.09] INVALID FOR*07/06/2010 Thoracic or Lumbosacral Neuritis or Radiculitis*INVALID FOR*04/10/2010 Pain in Joint, Lower Leg [M25.569] INVALID FOR*04/10/2010 Essential hypertension [I10] INVALID FOR* Hyperlipidemia, mixed [E78.2] INVALID FOR* More... SLEEP APNEA NOS [G47.30] INVALID FOR* Pruritus Ani [L29.0] INVALID FOR*04/10/2010 Anal or Rectal Pain [K62.89] INVALID FOR*04/10/2010 Other Symptoms Involving Digestive System [R19.*INVALID FOR*04/10/2010 Blood in Stool [K92.1] INVALID FOR*04/10/2010 BPH W URINARY OBS/LUTS [N40.1] INVALID FOR* Anxiety [F41.9] INVALID FOR* Metabolic Syndrome [E88.81] INVALID FOR* Abnormal CXR (chest x-ray) [R93.8] INVALID FOR*01/06/2012 Syncope [R55] INVALID FOR*01/06/2012 Carpal tunnel syndrome, left [G56.02] INVALID FOR*02/24/2012 Diabetic peripheral neuropathy [E11.42] INVALID FOR* Diabetes mellitus type 2, uncontrolled, without*INVALID FOR* More... Pain disorder with psychological component [F45*INVALID FOR* Reactive depression [F32.9] INVALID FOR* Smoker [F17.200] INVALID FOR* Obesity (BMI 30-39.9) [E66.9] INVALID FOR* Other instructions from your clinician: Start taking wellbutrin once daily for mood Make appointment with counseling center. Start taking gabapentin once daily at bedtime. Can add one tablet daily every 3 days until taking 3 tablets daily (every eight hours). May make drowsy. Flexeril as needed for back pain. May make drowsy. Prescriptions ordered this encounter Disp Refills Start End GABAPENTIN 300 MG CAPSULE 90 c* 11 02/27/2018 02/27/2019 Route: ORAL Sig: Take 1 capsule by mouth three times daily. CYCLOBENZAPRINE 10 MG TABLET 30 t* 2 02/27/2018 Route: ORAL Sig: Take 1 tablet by mouth three times daily as needed for Muscle Spasm. BUPROPION HCL SR 150 MG TABLET,12 HR* 30 t* 11 02/27/2018 Route: ORAL Sig: Take 1 tablet by mouth once daily. Medications Discontinued During This Encounter cyclobenzaprine (FLEXERIL) 10 mg tab* 30 t* 0 09/26/2017 02/27/2018 Route: ORAL Sig: Take 1 tablet by mouth three times daily as needed for Muscle Spasm. Disc: Reason for discontinue is not on file. Follow-up and Disposition History Recorded Encounter Status:Closed by LYNDSEY PUCKETT on 02/27/18 PROGRESS Observed: 02/27/2018 Status: COMPLETED Source: [facility] 2:57 PM [facility] REPOSITORY HNO ID: [id number] Author: Lyndsey Salinas (Cns) Service: (none) Author Type: Nurse Specialist Type: Progress Notes Filed: 02/27/2018 3:54 PM Note Text: OUTPATIENT VISIT DATE February 27, 2018 OUTPATIENT VISIT TYPE ESTABLISHED PRIMARY CARE PHYSICIAN: Fabi Gagnon MD CHIEF COMPLAINT: Patient presents with: Pain: bilateral leg pain AND back pain Anxiety History of Present Illness: Britney West is a 63 year old male who was last seen 10/2017 by Fabi Gagnon MD. He has been seen in the past for ACTIVE PROBLEM LIST Backache, Unspecified Copd With Chronic Bronchitis (Hcc) Degeneration of Lumbar Or Lumbosacral Intervertebral Disc Essential Hypertension Hyperlipidemia, Mixed Unspecified Sleep Apnea Hypertrophy of Prostate With Urinary Obstruction and Other Lower Urinary Tract Symptoms (Luts) Anxiety Metabolic Syndrome Diabetic Peripheral Neuropathy (Hcc) Diabetes Mellitus Type 2, Uncontrolled, Without Complications (Hcc) Pain Disorder With Psychological Component Reactive Depression Smoker Obesity (Bmi 30-39.9) Since the last visit, he missed appt to establish care with Fabi Gagnon MD. he will reschedule his appointment for May. Since last here he has been seen by orthopedic doctor. He reports that the orthopedic physician told him that he would prefer not to do surgery due to his 2 pack-a-day smoking history. No current exercise or physical therapy. Has used Neurontin and Flexeril in the past with relief of back pain. Currently with nerve pain in both legs hips and thighs, increased when standing still. No change in gait or ability to walk, no loss of bowel or bladder control, no saddle anesthesia reported. Separately reports anxiety and anger issues, reports intolerance of prior medication but is not sure which one this was. Notes angers easily and persists for hours. He notes that he dwells on upsetting issues for hours. He reports seeing Dr. Goncalves in the past but not currently. No voiced HI, SI. Diabetes currently well controlled, no AE of medications. Reports decreased intake due to mood. PAST MEDICAL HISTORY Diagnosis Date - Alcohol abuse 2006(stopped) in remission - Benign neoplasm of colon - Carpal tunnel syndrome - Carpal tunnel syndrome, right 01/23/2012 - Cocaine abuse 2006 (stopped) In remission - Degeneration of lumbar or lumbosacral intervertebral disc - Depressive disorder, not elsewhere classified - Dermatophytosis of foot 01/19/2008 - Diabetes mellitus type 2 in obese (HCC) - Family history of malignant neoplasm of gastrointestinal tract - Frequency of urination 05/24/2014 - Hemorrhage of gastrointestinal tract, unspecified - History of pancreatitis 05/10/2014 States no longer drinks. Hx pancreatic pseudocysts- CT 2010 - Hyperplasia of prostate - Lateral epicondylitis of both elbows 02/13/2015 - Obesity, Class III, BMI >= 40 (morbid obesity) E66.01 05/12/2017 - SAAD (obstructive sleep apnea) 2013 CPAP therapy - Other specified disorder of rectum and anus 12/05/2008 - PMH - PAST MEDICAL HISTORY OF macular degeration - PMH - PAST MEDICAL HISTORY OF CTS - Urinary retention 05/24/2014 PAST SURGICAL HISTORY Procedure Laterality Date - COLONOS W/REM POLYP SNARE 09/02/08 two small polyps rectum - ablated - COLONOSCOP W/ OR W/O BRSH SPEC 01/30/00 Colonoscopy - COLONOSCOP W/ OR W/O BRSH SPEC 08/06/2013 Colonoscopy - LAMINECTOMY,LUMBAR Laminectomy, lumbar - REMV CATARACT EXTRACAP,INSERT LENS Left 03/2015 Cataract Extraction with PC IOL - REVISE MEDIAN N/CARPAL TUNNEL SURG 2012 Carpal tunnel decomp left FAMILY HISTORY Problem Relation Age of Onset - Cancer Mother - Colon Cancer Father - Diabetes Father - Multiple Sclerosis Brother - Multiple Sclerosis Brother - Cancer Sister liver - Cancer Brother lung Social History Substance Use Topics - Smoking status: Current Every Day Smoker Packs/day: 2.00 Years: 43.00 Types: Cigarettes Start date: 12/01/1965 - Smokeless tobacco: Never Used Comment: STOPPED nicotine patch - Alcohol use No Comment: occasional ALLERGIES: ALLERGIES Allergen Reactions - Cipro [Ciprofloxaci* - Duloxetine Other: See Comments Caused severe Vertigo, increased his BS - Simvastatin Other: See Comments Myalgia. - Venlafaxine Other: See Comments Chewing on his tongue MEDICATIONS gabapentin (NEURONTIN) 300 mg capsule Take 1 capsule by mouth three times daily. cyclobenzaprine (FLEXERIL) 10 mg tablet Take 1 tablet by mouth three times daily as needed for Muscle Spasm. buPROPion SR (WELLBUTRIN SR) 150 mg 12 hr tablet Take 1 tablet by mouth once daily. umeclidinium-vilanterol (ANORO ELLIPTA) 62.5-25 mcg/actuation inhaler Inhale 1 Inhalation as instructed once daily. metFORMIN ER (GLUCOPHAGE XR) 500 mg 24 hr tablet 1000 mg at breakfast and supper glipiZIDE XL (GLUCOTROL XL) 10 mg 24 hr tablet Take 1 tablet by mouth once daily. VENTOLIN HFA 90 mcg/actuation inhaler Inhale 2 Puffs as instructed every 4 hours as needed. traMADol (ULTRAM) 50 mg tablet Take 1 tablet by mouth every 6 hours as needed for Pain. naproxen (NAPROSYN) 500 mg tablet Take 1 tablet by mouth twice daily with meals. Take with food. diazePAM (VALIUM) 5 mg tablet Take 1 tablet by mouth every 6 hours as needed. blood sugar diagnostic (LoganTOUCH ULTRA TEST) test strip 1 Strip three times daily. Test blood sugar(s) 3 times daily. Dx: E11.65 Insulin: No. Uncontrolled/ fluctuating sugar. lisinopril (ZESTRIL, PRINIVIL) 10 mg tablet Take 1 tablet by mouth once daily. CPAP Initiate CPAP @ 17 cm of water with humidification. Mask (per patient preference) optional chin strap (if indicated) , filters, tubing, humidifier and lifetime supplies. multivitamin tablet Take 1 tablet by mouth once daily. Cholecalciferol, Vitamin D3, 5,000 unit cap Take 10,000 Units by mouth once daily. Lancets (ONE TOUCH ULTRASOFT LANCETS) lancets Test blood sugar(s) 1 times daily. Dx: 250.00, Insulin: No naftifine (NAFTIN) 2 % crea Apply 1 application to affected area once daily. Blood-Glucose Meter (ONE TOUCH ULTRA SYSTEM KIT) monitoring kit 1 Each three times daily. (For uncontrolled/variable sugars 250.02) REVIEW OF SYSTEMS: GENERAL: Negative for: Weight loss or gain, Fever or Chills, Weakness and Sleep difficulties. Physical Examination: BP 132/72 Pulse 96 Resp 16 Wt 254 lb (115.2kg) Extended Vitals not filed for this encounter. General appearance: Well appearing, alert, in no acute distress, well-hydrated, well nourished. Skin: Skin color, texture, turgor normal, no suspicious rashes or lesions Neuro: Gait normal. . Sensation grossly intact. Reviewed chart, outside records, tests [facility]AS website checked and validated. All prescriptions have been APPROPRIATELY filled. No suspicious activity was identified.- 02/27/2018 by Lyndsey Salinas APRN.FINANCIAL INVESTMENT ADVISER I personally interviewed, confirmed and edited the above information if obtained by others. TESTING: Glucose (mg/dL) Date Value 01/08/2018 113 Potassium (mmol/L) Date Value 01/08/2018 3.9 Sodium (mmol/L) Date Value 01/08/2018 141 Chloride (mmol/L) Date Value 01/08/2018 99 CO2 (mmol/L) Date Value 01/08/2018 27 Creatinine (mg/dL) Date Value 01/08/2018 0.83 BUN (mg/dL) Date Value 01/08/2018 14 Anion Gap (mmol/L) Date Value 01/08/2018 15 Calcium (mg/dL) Date Value 01/08/2018 9.0 Glucose (mg/dL) Date Value 01/08/2018 113 Potassium (mmol/L) Date Value 01/08/2018 3.9 Sodium (mmol/L) Date Value 01/08/2018 141 Chloride (mmol/L) Date Value 01/08/2018 99 CO2 (mmol/L) Date Value 01/08/2018 27 Creatinine (mg/dL) Date Value 01/08/2018 0.83 BUN (mg/dL) Date Value 01/08/2018 14 Anion Gap (mmol/L) Date Value 01/08/2018 15 Calcium (mg/dL) Date Value 01/08/2018 9.0 Protein, Total (g/dL) Date Value 01/08/2018 6.9 Albumin (g/dL) Date Value 01/08/2018 4.2 Bilirubin, Total (mg/dL) Date Value 01/08/2018 0.2 Alkaline Phosphatase (U/L) Date Value 01/08/2018 69 AST (U/L) Date Value 01/08/2018 24 ALT (U/L) Date Value 01/08/2018 41 Hemoglobin (g/dL) Date Value 02/24/2017 15.4 Hematocrit (%) Date Value 02/24/2017 48.0 WBC (k/uL) Date Value 02/24/2017 10.56 Cholesterol, Total (mg/dL) Date Value 08/30/2017 171 HDL Cholesterol (mg/dL) Date Value 08/30/2017 27 LDL Cholesterol (mg/dL) Date Value 08/30/2017 110 Triglyceride (mg/dL) Date Value 08/30/2017 170 Hemoglobin A1C Date Value Ref Range Status 01/08/2018 7.8 (H) 4.3 - 5.6 % Final 08/30/2017 11.0 (H) 4.3 - 5.6 % Final Comment: Stateless Diabetes Association guidelines indicate that patients with HgbA1c in the range 5.7-6.4% are at increased risk for development of diabetes, and intervention by lifestyle modification may be beneficial. HgbA1c greater or equal to 6.5% is considered diagnostic of diabetes. 05/09/2017 7.9 (H) 4.3 - 5.6 % Final Comment: Stateless Diabetes Association guidelines indicate that patients with HgbA1c in the range 5.7-6.4% are at increased risk for development of diabetes, and intervention by lifestyle modification may be beneficial. HgbA1c greater or equal to 6.5% is considered diagnostic of diabetes. 02/24/2017 10.1 (H) 4.3 - 5.6 % Final Comment: Stateless Diabetes Association guidelines indicate that patients with HgbA1c in the range 5.7-6.4% are at increased risk for development of diabetes, and intervention by lifestyle modification may be beneficial. HgbA1c greater or equal to 6.5% is considered diagnostic of diabetes. 11/02/2016 8.2 (H) 4.3 - 5.6 % Final Comment: Stateless Diabetes Association guidelines indicate that patients with HgbA1c in the range 5.7-6.4% are at increased risk for development of diabetes, and intervention by lifestyle modification may be beneficial. HgbA1c greater or equal to 6.5% is considered diagnostic of diabetes. Ejection Fraction: No results found IMPRESSION: Mr. West is a 63 year old man presents with chronic back pain, anger and anxiety. After my examination and review of data, I make the following recommendations. PLAN AND RECOMMENDATIONS: 1. Anxiety - ICD9: 300.00, ICD10: F41.9 (primary diagnosis) Referring to counseling Center. Reports prior intolerance to antianxiety medication. Advised to start taking Wellbutrin once daily, if any adverse effects advised to stop. - BUPROPION HCL SR 150 MG TABLET,12 HR SUSTAINED-RELEASE - CONSULT TO PSYCHIATRY 2. Chronic left-sided low back pain with left-sided sciatica - ICD9: 724.2, 724.3, 338.29, ICD10: M54.42, G89.29 Reports seeing orthopedic physician and advised he was not a candidate for surgery due to currently smoking 2 packs daily. Currently going to physical therapy. {Would like to resume medications for back pain - GABAPENTIN 300 MG CAPSULE - CYCLOBENZAPRINE 10 MG TABLET Start taking gabapentin once daily at bedtime. Can add one tablet daily every 3 days until taking 3 tablets daily (every eight hours). May make drowsy. Flexeril as needed for back pain. May make drowsy. 3. Uncontrolled type 2 diabetes mellitus without complication, without long-term current use of insulin (HCC) - ICD9: 250.02, ICD10: E11.65 Significantly improved control on recent labs - Continue current medications 4. Difficulty controlling anger - ICD9: 799.29, ICD10: R45.4 - BUPROPION HCL SR 150 MG TABLET,12 HR SUSTAINED-RELEASE - CONSULT TO PSYCHIATRY 5. Smoker - ICD9: 305.1, ICD10: F17.200 Cessation endorsed, not yet ready to quit. Contemplating quitting. - BUPROPION HCL SR 150 MG TABLET,12 HR SUSTAINED-RELEASE Advised to go to ER if develops chest pain, shortness of breath, or severe worsening of symptoms. Discussed risks, benefits, alternatives, and potential side effects of medications. Mr. West expressed understanding and agreed with the plan. Lyndsey Salinas APRN.FINANCIAL INVESTMENT ADVISER CNOV Observed: 02/16/2018 Status: COMPLETED Source: [place] 3:00 PM [facility] REPOSITORY Office Visit (PULMWS) BRETTBRITNEY Hollis ([id number]) 1955 M NFR Date Time Provider Department 02/16/18 3:00 PM NAYE DAVE PULMWS During your visit today, we recorded the following information about you: Pulse Respiration Blood pressure Weight 107/minute 16/minute 132/76 116.6 kg Height 1.727 m Cecily Harding JUNIOR 02/16/2018 2:52 PM Signed Intake information documented in the prior visit with Marisol Jones, [employer] OPERATOR today. Naye Dave PA-C 02/16/2018 3:20 PM Signed [facility] [place], 02/16/18: HPI: The patient is here for follow up of COPD. Current smoker, 2 ppd, 86 pack years. PMH: COPD, SAAD on CPAP, DM. Since the last Pulmonary Clinic visit, the patient has not sought care for exacerbation. Patient compliant with prescribed Rx. Occasional cough, significantly improved since starting Anoro. No sputum. No hemoptysis. No pleuritic chest pain. Variable wheezing. No dyspnea. 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 Wears CPAP ANDquot;most nightsANDquot;. Rarely requires rescue bronchodilator. PMH changes: Reviewed with patient today. No changes. FAMH changes: Reviewed with patient today. No changes. SOCH changes: No changes. ROS: General: Generally feels depressed. Appetite poor. Not currently taking antidepressants. ANDquot;I am not planning on taking them because I don't have depression, I think I have ADD or Executive dysfunctionANDquot;. Steadily losing weight. Eyes, Ears, nose, throat: No post nasal drip, rhinorrhea, purulent nasal discharge, epistaxis, hoarseness. Vision stable. Cardiac: No angina, edema, orthopnea. GI: No heartburn, dysphagia, diarrhea. Uro/RESTORATIVE ART EMBALMER: No dysuria, hesitancy, nocturia. Musculoskeletal: No pain. Neuro: No headache, focal weakness, tremor. Skin: No rash. Psych: No thoughts of harming self or others. ANDquot;I just get pissed off easilyANDquot;. ANDquot;I feel anxiousANDquot;. Otherwise negative. Immunization History Administered Date(s) Administered H1N1 Influenza 12/20/2009 Influenza Seasonal Inj Age 3+ 09/28/2014 Influenza Seasonal Inj Quadrivalent Age 3+ 08/31/2015 08/16/2016 09/03/2017 Influenza Vaccine, Split-Non Spec 09/27/2008 10/05/2010 08/19/2011 10/20/2012 08/30/2013 Pneumovax 10/05/2010 Tdap (Age 7+) 10/20/2012 Allergies were reviewed and updated, and medications were reconciled with the patient. PHYSICAL EXAMINATION: BP 132/76 Pulse 107 Resp 16 Ht 5' 8ANDquot; (1.73m) Wt 257 lb (116.6kg) SpO2 97% BMI 39.09 kg/(m2). Gen: No acute distress. Cooperative with examination. ENT: Sclerae clear. Nares clear. Oral hygeine/dentition poor. Pharynx clear. No halitosis. Resp: No stridor, accessory respiratory muscle use, supra- sternal or intercostal retractions. Coarse breath sounds throughout. No wheezes, crackles, rubs. CV: Regular rythm. Heart tones normal. Radial pulses normal. Abd: Non distended. MSK: No kyphoscoliosis, joint deformities of the extremities. Ext: Warm and well perfused. No clubbing, cyanosis, edema. Skin: Color normal. Texture normal. No rash, eczema, urticaria, ecchymoses. Neuro: Mental status normal. Affect normal. Muscle tone normal, symmetrical . No tremor. DATA REVIEW: DATE: 02/16/18 09/12/17 06/13/17 10/05/14 FVC 3.49 (80% pred) 3.19 (73% pred) 3.08?(70?% pred) post BD 3.30 (75%) 2.70?(82?% pred) FEV1 2.27 (69% pred) 2.07 (63% pred) 1.78?(54?% pred) post BD 2.00 (60%) 2.54?(79?% pred) FEV1/FVC 0.65 0.65 0.58 post BD 0.60 0.69 HgA1C 01/08/18: 7.8 08/30/17: 11.0 05/09/17: 7.9 IMPRESSION/RECOMMEND: 1. COPD with chronic bronchitis. Symptomatically improved today with increase in FEV1. - Continue Anoro Ellipta 1 inhalations once daily. This inhaler contains LABA and LAAC, no steroid. HgA1c improved. - Continue Albuterol rescue inhaler 2 inhalations up to every 4 hours as needed for shortness of breath/wheezing. - Up to date on annual influenza and pneumonia vaccine. - It is crucial that you stop smoking! ? 2. Tobacco Use Disorder. SMOKING CESSATION IS THE SINGLE MOST IMPORTANT STEP YOU CAN TAKE TOWARDS IMPROVING YOUR HEALTH. Nearly half of all smokers will from a tobacco-related illness! - Patient is not ready to quit at this time. 3. Anxiety. ?- Appointment with Dr. Gagnon tomorrow to discuss these issues. - I re-addressed the pathophysiology of chronic bronchitis, emphysema, and COPD; and reviewed the management of this condition as outlined in the GOLD and ATS guidelines, including: smoking cessation, Pneumococcal and annual Influenza vaccination, bronchodilators, inhaled corticosteroids, antibiotics, exercise/rehabilitation, and oxygen. - I also again discussed mechanisms of action of medications, alternatives, and potential side effects of treatment. I addressed the questions of the patient, and he expressed understanding and acceptance of my answers. Naye Dave PA-C [facility] [place] [address] [place] [address] Naye Dave PA-C 02/16/2018 3:20 PM Signed 1. COPD with chronic bronchitis. Symptomatically improved today with increase in FEV1. - Continue Anoro Ellipta 1 inhalations once daily. This inhaler contains LABA and LAAC, no steroid. HgA1c improved. - Continue Albuterol rescue inhaler 2 inhalations up to every 4 hours as needed for shortness of breath/wheezing. - Up to date on annual influenza and pneumonia vaccine. - It is crucial that you stop smoking! ? 2. Tobacco Use Disorder. SMOKING CESSATION IS THE SINGLE MOST IMPORTANT STEP YOU CAN TAKE TOWARDS IMPROVING YOUR HEALTH. Nearly half of all smokers will from a tobacco-related illness! - Patient is not ready to quit at this time. 3. Anxiety. ?- Appointment with Dr. Gagnon tomorrow to discuss these issues. Referring Provider: EMMY SOLER [[id number]] Allergies As of Date: 02/16/2018 Noted Allergy Reaction CIPRO (CIPROFLOXACIN) 02/27/2006 DULOXETINE 04/18/2017 14 - Other: See Comments Comments: Caused severe Vertigo, increased his BS SIMVASTATIN 07/05/2013 14 - Other: See Comments Comments: Myalgia. VENLAFAXINE 03/06/2015 14 - Other: See Comments Comments: Chewing on his tongue Date Reviewed: 02/16/2018 Reviewed by: Naye Dave - Fully Assessed Reason for Visit: Established Patient [175] Cmt: COPD Primary Visit Diagnosis:Chronic obstructive pulmonary disease, unspecified COPD type (HCC) [J44.9] Other Visit Diagnoses:Tobacco use disorder [F17.200] COPD with chronic bronchitis (HCC) [J44.9] Order(s):SPIROMETRY BASELINE ONLY [[id number]] Order #: [id number] FUTURE Prescriptions as of 02/16/2018 Sig: UMECLIDINIUM 62.5 MCG-VILANTE* Inhale 1 Inhalation as instru* METFORMIN ER 500 MG TABLET,EX* 1000 mg at breakfast and supp* GLIPIZIDE ER 10 MG TABLET, EX* Take 1 tablet by mouth once d* VENTOLIN HFA 90 MCG/ACTUATION* Inhale 2 Puffs as instructed * CYCLOBENZAPRINE 10 MG TABLET Take 1 tablet by mouth three * TRAMADOL 50 MG TABLET Take 1 tablet by mouth every * NAPROXEN 500 MG TABLET Take 1 tablet by mouth twice * DIAZEPAM 5 MG TABLET Take 1 tablet by mouth every * BLOOD SUGAR DIAGNOSTIC STRIPS 1 Strip three times daily. Te* LISINOPRIL 10 MG TABLET Take 1 tablet by mouth once d* CPAP Initiate CPAP @ 17 cm of wate* MULTIVITAMIN TABLET Take 1 tablet by mouth once d* CHOLECALCIFEROL (VITAMIN D3) * Take 10,000 Units by mouth on* LANCETS Test blood sugar(s) 1 times * NAFTIFINE 2 % TOPICAL CREAM Apply 1 application to affect* BLOOD-GLUCOSE METER KIT 1 Each three times daily. (Fo* Problem List As Of Date 02/16/2018 Noted Resolved BACKACHE NOS [M54.9] INVALID FOR* COPD with chronic bronchitis (HCC) [J44.9] INVALID FOR* LUMB/LUMBOSAC DISC DEGEN [M51.37] INVALID FOR* Other Abnormal Glucose [R73.09] INVALID FOR*07/06/2010 Thoracic or Lumbosacral Neuritis or Radiculitis*INVALID FOR*04/10/2010 Pain in Joint, Lower Leg [M25.569] INVALID FOR*04/10/2010 Essential hypertension [I10] INVALID FOR* Hyperlipidemia, mixed [E78.2] INVALID FOR* More... SLEEP APNEA NOS [G47.30] INVALID FOR* Pruritus Ani [L29.0] INVALID FOR*04/10/2010 Anal or Rectal Pain [K62.89] INVALID FOR*04/10/2010 Other Symptoms Involving Digestive System [R19.*INVALID FOR*04/10/2010 Blood in Stool [K92.1] INVALID FOR*04/10/2010 BPH W URINARY OBS/LUTS [N40.1] INVALID FOR* Anxiety [F41.9] INVALID FOR* Metabolic Syndrome [E88.81] INVALID FOR* Abnormal CXR (chest x-ray) [R93.8] INVALID FOR*01/06/2012 Syncope [R55] INVALID FOR*01/06/2012 Carpal tunnel syndrome, left [G56.02] INVALID FOR*02/24/2012 Diabetic peripheral neuropathy [E11.42] INVALID FOR* Diabetes mellitus type 2, uncontrolled, without*INVALID FOR* More... Pain disorder with psychological component [F45*INVALID FOR* Reactive depression [F32.9] INVALID FOR* Smoker [F17.200] INVALID FOR* Obesity (BMI 30-39.9) [E66.9] INVALID FOR* Other instructions from your clinician: 1. COPD with chronic bronchitis. Symptomatically improved today with increase in FEV1. - Continue Anoro Ellipta 1 inhalations once daily. This inhaler contains LABA and LAAC, no steroid. HgA1c improved. - Continue Albuterol rescue inhaler 2 inhalations up to every 4 hours as needed for shortness of breath/wheezing. - Up to date on annual influenza and pneumonia vaccine. - It is crucial that you stop smoking! ? 2. Tobacco Use Disorder. SMOKING CESSATION IS THE SINGLE MOST IMPORTANT STEP YOU CAN TAKE TOWARDS IMPROVING YOUR HEALTH. Nearly half of all smokers will from a tobacco-related illness! - Patient is not ready to quit at this time. 3. Anxiety. ?- Appointment with Dr. Gagnon tomorrow to discuss these issues. Visit Notes: >> Cecily Mehdi PACHECO FriFeb 16, 2018 2:52 PM Status: Signed Intake information documented in the prior visit with Marisol Jones CRT today. Medications Discontinued During This Encounter meclizine (ANTIVERT) 25 mg tab 20 t* 0 03/03/2017 02/16/2018 Route: ORAL Sig: Take 1 tablet by mouth twice daily as needed (dizziness). Disc: Discontinued by Patient Disposition: Return in about 6 months (around 08/19/2018). Follow-up and Disposition History Recorded Encounter Status:Closed by NAYE DAVE on 02/16/18 PROGRESS Observed: 02/16/2018 Status: COMPLETED Source: [place] 2:[address] [facility] [place] REPOSITORY HNO ID: [id number] Author: Naye Dave Service: (none) Author Type: Physician Corporate Strategy Associate Type: Progress Notes Filed: 02/16/2018 3:20 PM Note Text: [facility] [place], 02/16/18: HPI: The patient is here for follow up of COPD. Current smoker, 2 ppd, 86 pack years. PMH: COPD, SAAD on CPAP, DM. Since the last Pulmonary Clinic visit, the patient has not sought care for exacerbation. Patient compliant with prescribed Rx. Occasional cough, significantly improved since starting Anoro. No sputum. No hemoptysis. No pleuritic chest pain. Variable wheezing. No dyspnea. 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 Rarely requires rescue bronchodilator. PMH changes: Reviewed with patient today. No changes. FAMH changes: Reviewed with patient today. No changes. SOCH changes: No changes. ROS: General: Generally feels depressed. Appetite poor. Not currently taking antidepressants. I am not planning on taking them because I don't have depression, I think I have ADD or Executive dysfunction. Steadily losing weight. Eyes, Ears, nose, throat: No post nasal drip, rhinorrhea, purulent nasal discharge, epistaxis, hoarseness. Vision stable. Cardiac: No angina, edema, orthopnea. GI: No heartburn, dysphagia, diarrhea. Uro/RESTORATIVE ART EMBALMER: No dysuria, hesitancy, nocturia. Musculoskeletal: No pain. Neuro: No headache, focal weakness, tremor. Skin: No rash. Psych: No thoughts of harming self or others. I just get pissed off easily. I feel anxious. Otherwise negative. Immunization History Administered Date(s) Administered H1N1 Influenza 12/20/2009 Influenza Seasonal Inj Age 3+ 09/28/2014 Influenza Seasonal Inj Quadrivalent Age 3+ 08/31/2015 08/16/2016 09/03/2017 Influenza Vaccine, Split-Non Spec 09/27/2008 10/05/2010 08/19/2011 10/20/2012 08/30/2013 Pneumovax 10/05/2010 Tdap (Age 7+) 10/20/2012 Allergies were reviewed and updated, and medications were reconciled with the patient. PHYSICAL EXAMINATION: BP 132/76 Pulse 107 Resp 16 Ht 5' 8 (1.73m) Wt 257 lb (116.6kg) SpO2 97% BMI 39.09 kg/(m2). Gen: No acute distress. Cooperative with examination. ENT: Sclerae clear. Nares clear. Oral hygeine/dentition poor. Pharynx clear. No halitosis. Resp: No stridor, accessory respiratory muscle use, supra- sternal or intercostal retractions. Coarse breath sounds throughout. No wheezes, crackles, rubs. CV: Regular rythm. Heart tones normal. Radial pulses normal. Abd: Non distended. MSK: No kyphoscoliosis, joint deformities of the extremities. Ext: Warm and well perfused. No clubbing, cyanosis, edema. Skin: Color normal. Texture normal. No rash, eczema, urticaria, ecchymoses. Neuro: Mental status normal. Affect normal. Muscle tone normal, symmetrical . No tremor. DATA REVIEW: DATE: 03/19/18 09/12/17 06/13/17 10/05/14 FVC 3.49 (80% pred) 3.19 (73% pred) 3.08?(70?% pred) post BD 3.30 (75%) 2.70?(82?% pred) FEV1 2.27 (69% pred) 2.07 (63% pred) 1.78?(54?% pred) post BD 2.00 (60%) 2.54?(79?% pred) FEV1/FVC 0.65 0.65 0.58 post BD 0.60 0.69 HgA1C 01/08/18: 7.8 08/30/17: 11.0 05/09/17: 7.9 IMPRESSION/RECOMMEND: 1. COPD with chronic bronchitis. Symptomatically improved today with increase in FEV1. - Continue Anoro Ellipta 1 inhalations once daily. This inhaler contains LABA and LAAC, no steroid. HgA1c improved. - Continue Albuterol rescue inhaler 2 inhalations up to every 4 hours as needed for shortness of breath/wheezing. - Up to date on annual influenza and pneumonia vaccine. - It is crucial that you stop smoking! ? 2. Tobacco Use Disorder. SMOKING CESSATION IS THE SINGLE MOST IMPORTANT STEP YOU CAN TAKE TOWARDS IMPROVING YOUR HEALTH. Nearly half of all smokers will from a tobacco-related illness! - Patient is not ready to quit at this time. 3. Anxiety. ?- Appointment with Dr. Gagnon tomorrow to discuss these issues. - I re-addressed the pathophysiology of chronic bronchitis, emphysema, and COPD; and reviewed the management of this condition as outlined in the GOLD and ATS guidelines, including: smoking cessation, Pneumococcal and annual Influenza vaccination, bronchodilators, inhaled corticosteroids, antibiotics, exercise/rehabilitation, and oxygen. - I also again discussed mechanisms of action of medications, alternatives, and potential side effects of treatment. I addressed the questions of the patient, and he expressed understanding and acceptance of my answers. Naye Dave PA-C [facility] Respiratory [place] [facility] [place] [phone] CNPTOUTREACH Observed: 02/03/2018 Status: COMPLETED Source: [place] 12:00 AM [facility] REPOSITORY Patient Outreach (FAMPST) BRITNEY WEST ([id number]) 1955 M NFR Date Time Provider Department 02/03/18 FABI GAGNON During your visit today, we recorded the following information about you: Allergies As of Date: 02/03/2018 Noted Allergy Reaction CIPRO (CIPROFLOXACIN) 02/27/2006 DULOXETINE 04/18/2017 14 - Other: See Comments Comments: Caused severe Vertigo, increased his BS SIMVASTATIN 07/05/2013 14 - Other: See Comments Comments: Myalgia. VENLAFAXINE 03/06/2015 14 - Other: See Comments Comments: Chewing on his tongue Date Reviewed: 11/17/2017 Reviewed by: Jodi Dial [employer] - Fully Assessed Visit Diagnosis:Medication management [Z79.899] Order(s):ALBUMIN/CREAT RATIO RND UR [SQUACR] Order #: [id number] FUTURE Prescriptions as of 02/03/2018 Sig: X UMECLIDINIUM 62.5 MCG-VILANTE* Inhale 1 Inhalation as instru* METFORMIN ER 500 MG TABLET,EX* 1000 mg at breakfast and supp* X GLIPIZIDE ER 10 MG TABLET, EX* Take 1 tablet by mouth once d* VENTOLIN HFA 90 MCG/ACTUATION* Inhale 2 Puffs as instructed * X CYCLOBENZAPRINE 10 MG TABLET Take 1 tablet by mouth three * TRAMADOL 50 MG TABLET Take 1 tablet by mouth every * NAPROXEN 500 MG TABLET Take 1 tablet by mouth twice * DIAZEPAM 5 MG TABLET Take 1 tablet by mouth every * BLOOD SUGAR DIAGNOSTIC STRIPS 1 Strip three times daily. Te* X LISINOPRIL 10 MG TABLET Take 1 tablet by mouth once d* X MECLIZINE 25 MG TABLET Take 1 tablet by mouth twice * CPAP Initiate CPAP @ 17 cm of wate* MULTIVITAMIN TABLET Take 1 tablet by mouth once d* CHOLECALCIFEROL (VITAMIN D3) * Take 10,000 Units by mouth on* LANCETS Test blood sugar(s) 1 times * NAFTIFINE 2 % TOPICAL CREAM Apply 1 application to affect* BLOOD-GLUCOSE METER KIT 1 Each three times daily. (Fo* Problem List As Of Date 02/03/2018 Noted Resolved BACKACHE NOS [M54.9] INVALID FOR* COPD with chronic bronchitis (HCC) [J44.9] INVALID FOR* LUMB/LUMBOSAC DISC DEGEN [M51.37] INVALID FOR* Other Abnormal Glucose [R73.09] INVALID FOR*07/06/2010 Thoracic or Lumbosacral Neuritis or Radiculitis*INVALID FOR*04/10/2010 Pain in Joint, Lower Leg [M25.569] INVALID FOR*04/10/2010 Essential hypertension [I10] INVALID FOR* Hyperlipidemia, mixed [E78.2] INVALID FOR* More... SLEEP APNEA NOS [G47.30] INVALID FOR* Pruritus Ani [L29.0] INVALID FOR*04/10/2010 Anal or Rectal Pain [K62.89] INVALID FOR*04/10/2010 Other Symptoms Involving Digestive System [R19.*INVALID FOR*04/10/2010 Blood in Stool [K92.1] INVALID FOR*04/10/2010 BPH W URINARY OBS/LUTS [N40.1] INVALID FOR* Anxiety [F41.9] INVALID FOR* Metabolic Syndrome [E88.81] INVALID FOR* Abnormal CXR (chest x-ray) [R93.89] INVALID FOR*01/06/2012 Syncope [R55] INVALID FOR*01/06/2012 Carpal tunnel syndrome, left [G56.02] INVALID FOR*02/24/2012 Diabetic peripheral neuropathy [E11.42] INVALID FOR* Diabetes mellitus type 2, uncontrolled, without*INVALID FOR* More... Pain disorder with psychological component [F45*INVALID FOR* Reactive depression [F32.9] INVALID FOR* Smoker [F17.200] INVALID FOR* Obesity (BMI 30-39.9) [E66.9] INVALID FOR* Encounter Status:Closed by KATE, PRODUSER on 09/11/18 COMP METABOLIC PANEL Collected: 01/08/2018 Status: F Source: [place] 4:25 PM [facility] REPOSITORY TYPE CODE TESTS RESULT OUT OF REFERENCE UNITS RANGE LAB TP 6.3-8.0 g/dL Protein, Total 6.9 LAB ALB 3.9-4.9 g/dL Albumin 4.2 LAB CA 8.5-10.2 mg/dL Calcium, Total 9.0 LAB TBIL 0.2-1.3 mg/dL Bilirubin, Total 0.2 LAB ALKP 36-108 U/L Alkaline Phosphatase 69 LAB AST 14-40 U/L AST 24 LAB GLU 74-99 mg/dL Glucose High 113 Result Comment: The Stateless Diabetes Association (ADA) provides guidance for cutoff values for fasting glucose and random glucose. The ADA defines fasting as no caloric intake for at least 8 hours. Fas ting plasma glucose results between 100 to 125 mg/dL indicate increased risk for diabetes (prediabetes). Fasting plasma glucose results greater than or equal to 126 mg/dL meet the criteria for diagnosis of diabetes. In the absence of unequivocal hyperglycemia, results should be confirmed by repeat testing. In a patient with classic symptoms of hyperglycemia or hyperglycemic crisis, random plasma glucose results greater than or equal to 200 mg/dL meet the criteria for diagnosis of diabetes. Reference: Standards of Medical Care in Diabetes 2016, Stateless Diabetes Association. Diabetes Care. 2016.39(Suppl 1). LAB BUN 9-24 mg/dL BUN 14 LAB CRET 0.73-1.22 mg/dL Creatinine 0.83 LAB NA 136-144 mmol/L Sodium 141 LAB K 3.7-5.1 mmol/L Potassium 3.9 LAB CL 97-105 mmol/L Chloride 99 LAB CO2 22-30 mmol/L CO2 27 LAB AGAP 9-18 mmol/L Anion Gap 15 LAB ALT 10-54 U/L ALT 41 LAB GFRAA eGFR- Amer. >60 LAB GFRNAA . eGFR-All Other Races >60 Result Comment: eGFR (Estimated GFR) Units of measure: mL/min/1.73 meters squared eGFR is derived from the reexpressed MDRD Study equation using the following parameters: serum creatinine, age, gender and race. The creatinine assay has been calibrated to be traceable to IDMS. An eGFR <60 mL/min/1.73m2 for >3 months is consistent with chronic kidney disease. Refer to KDOQI guidelines for clinical interpretation. In patients with unstable renal function, e.g. those with acute kidney injury, the eGFR may not accurately reflect actual GFR. Performed By: #### CMP, HBA1C #### [facility] [address] [place], [place] [address] HEMOGLOBIN A1C Collected: 01/08/2018 Status: F Source: [place] 4:[address] [facility] [place] REPOSITORY TYPE CODE TESTS RESULT OUT OF REFERENCE UNITS RANGE LAB HGBA1C 4.3-5.6 % High Hemoglobin A1c 7.8 LAB HBA0 mg/dL Est. Average Glucose 177 Result Comment: eAG: (Estimated average glucose) is a calculated value from HgbA1c and is medicare sales representative of the average blood glucose level in the last 2-3 month period. Performed By: #### CMP, HBA1C #### [facility] [address] [place], [place] [address] PROGRESS Observed: 01/08/2018 Status: COMPLETED Source: [place] 3:00 PM [facility] REPOSITORY HNO ID: [id number] Author: Moises Sethi (Pharmacist) Service: (none) Author Type: Pharmacist Type: Progress Notes Filed: 01/08/2018 4:41 PM Note Text: Patient consents to pharmacy collaborative practice agreement. REASON FOR CONSULT: DM GOALS: A1c < 8% CONSULTING PROVIDER: Dr. Gagnon Date of Consult: Britney West is a 62 year old male was last seen in [facility] by PCP, Dr. Fabi Gagnon MD on 11/17/17. Patient is presenting today for f/u pharmacotherapy management appointment for DM. At last PharmD visit on 11/11/17 glipizide was increased INTERIM HISTORY: Reports having a tough month and a half Feels little motivation to do certain things, like cooking and laundry Sees counseling when he feels it will help Thinks he might have some attention deficit disorder Mostly tries to deal with his anxiety, when he can't deal with it he takes a diazepam which he is prescribed PRN Wants to work on getting things back on track Is not checking his BGs but will start Thinks his glipizide needs to be increased Current DM Medications: Metformin ER 500mg take 2 tablets BID Glipizide XL 5 mg once daily Current HTN Medications: Lisinopril 10mg once daily Preventative Medications: ? On CHRISTIANO/ARB: Yes ? On Statin: No ? On ASA: Yes ROS: ? Patient denies CP, SOB, HIGHTOWER, blurred vision, dizziness or lightheadedness ? Patient denies symptoms of hypoglycemia (sweating, anxiety, palpitations, hunger, and tremor) ? Patient denies symptoms of hyperglycemia (polyuria, polydipsia, polyphagia) ? Patient denies potential medication adverse effects DIET/EXERCISE/SOCIAL Hx: Poor eating habits per patient ? Dinner: 2 hot dogs last night ? Snacks: no ? Following Na restrictions: no ? Beverages: 5-6 cups coffee every morning, 2-3 more during the day, with sweet-n-low ? Exercise: no ? Tobacco: 1-2 ppd, not interested in quitting ? Alcohol: denies ? Illicits: denies MEDICATIONS: ? Pill bottles are not present. ? Adherence: denies missed doses. ? Pharmacy: [facility] ? Rx coverage: THIP ? Affordability: no issues ? Diabetes supplies: One Touch ? Organization System: none ACTIVE PROBLEM LIST Backache, Unspecified Copd With Chronic Bronchitis (Hcc) Degeneration of Lumbar Or Lumbosacral Intervertebral Disc Essential Hypertension Hyperlipidemia, Mixed Unspecified Sleep Apnea Hypertrophy of Prostate With Urinary Obstruction and Other Lower Urinary Tract Symptoms (Luts) Anxiety Metabolic Syndrome Diabetic Peripheral Neuropathy (Hcc) Diabetes Mellitus Type 2, Uncontrolled, Without Complications (Hcc) Pain Disorder With Psychological Component Reactive Depression Smoker Obesity (Bmi 30-39.9) PAST MEDICAL HISTORY Diagnosis Date - Alcohol abuse 2006(stopped) in remission - Benign neoplasm of colon - Carpal tunnel syndrome - Carpal tunnel syndrome, right 01/23/2012 - Cocaine abuse 2006 (stopped) In remission - Degeneration of lumbar or lumbosacral intervertebral disc - Depressive disorder, not elsewhere classified - Dermatophytosis of foot 01/19/2008 - Diabetes mellitus type 2 in obese (HCC) - Family history of malignant neoplasm of gastrointestinal tract - Frequency of urination 05/24/2014 - Hemorrhage of gastrointestinal tract, unspecified - History of pancreatitis 05/10/2014 States no longer drinks. Hx pancreatic pseudocysts- CT 2010 - Hyperplasia of prostate - Lateral epicondylitis of both elbows 02/13/2015 - Obesity, Class III, BMI >= 40 (morbid obesity) E66.01 05/12/2017 - SAAD (obstructive sleep apnea) 2013 CPAP therapy - Other specified disorder of rectum and anus 12/05/2008 - PMH - PAST MEDICAL HISTORY OF macular degeration - PMH - PAST MEDICAL HISTORY OF CTS - Urinary retention 05/24/2014 ALLERGIES Allergen Reactions - Cipro [Ciprofloxaci* - Duloxetine Other: See Comments Caused severe Vertigo, increased his BS - Simvastatin Other: See Comments Myalgia. - Venlafaxine Other: See Comments Chewing on his tongue Current Outpatient Prescriptions: glipiZIDE XL (GLUCOTROL XL) 5 mg 24 hr tablet Take 1 tablet by mouth once daily. VENTOLIN HFA 90 mcg/actuation inhaler Inhale 2 Puffs as instructed every 4 hours as needed. cyclobenzaprine (FLEXERIL) 10 mg tablet Take 1 tablet by mouth three times daily as needed for Muscle Spasm. umeclidinium-vilanterol (ANORO ELLIPTA) 62.5-25 mcg/actuation inhaler Inhale 1 Inhalation as instructed once daily. traMADol (ULTRAM) 50 mg tablet Take 1 tablet by mouth every 6 hours as needed for Pain. naproxen (NAPROSYN) 500 mg tablet Take 1 tablet by mouth twice daily with meals. Take with food. diazePAM (VALIUM) 5 mg tablet Take 1 tablet by mouth every 6 hours as needed. metFORMIN ER (GLUCOPHAGE XR) 500 mg 24 hr tablet 1000 mg at breakfast and supper blood sugar diagnostic (Salt RightsUCH ULTRA TEST) test strip 1 Strip three times daily. Test blood sugar(s) 3 times daily. Dx: E11.65 Insulin: No. Uncontrolled/ fluctuating sugar. lisinopril (ZESTRIL, PRINIVIL) 10 mg tablet Take 1 tablet by mouth once daily. meclizine (ANTIVERT) 25 mg tab Take 1 tablet by mouth twice daily as needed (dizziness). CPAP Initiate CPAP @ 17 cm of water with humidification. Mask (per patient preference) optional chin strap (if indicated) , filters, tubing, humidifier and lifetime supplies. multivitamin tablet Take 1 tablet by mouth once daily. Cholecalciferol, Vitamin D3, 5,000 unit cap Take 10,000 Units by mouth once daily. Lancets (ONE TOUCH ULTRASOFT LANCETS) lancets Test blood sugar(s) 1 times daily. Dx: 250.00, Insulin: No naftifine (NAFTIN) 2 % crea Apply 1 application to affected area once daily. Blood-Glucose Meter (ONE TOUCH ULTRA SYSTEM KIT) monitoring kit 1 Each three times daily. (For uncontrolled/variable sugars 250.02) No current facility-administered medications for this visit. Rx meds not listed in EPIC: none OTCs: none Herbals: none GLYCEMIC CONTROL: ? Glucometer present at visit: No ? SMBG?s: reports not checking, checked today random BG was 265 mg/dL ? Hypoglycemia: denies Last 3 Encounter BP Readings: Date: BP: 11/17/2017 138/62 10/15/2017 140/84 09/12/2017 135/76 Wt: 119.3 kg (263 lb) BMI: 39.99 kg/(m2) LABS Lab Results Component Value Date HBA1C 11.0 08/30/2017 HBA1C 7.9 05/09/2017 HBA1C 10.1 02/24/2017 CMP: Glucose 319 08/30/2017 BUN 16 08/30/2017 Creatinine 0.78 08/30/2017 Sodium 137 08/30/2017 Potassium 4.7 08/30/2017 Chloride 97 08/30/2017 CO2 24 08/30/2017 Protein, Total 6.9 08/30/2017 Albumin 4.3 08/30/2017 Calcium 9.0 08/30/2017 Alkaline Phosphatase 84 08/30/2017 Bilirubin, Total 0.3 08/30/2017 AST 24 08/30/2017 ALT 50 08/30/2017 Estimated Creatinine Clearance: 123.3 mL/min (based on Cr of 0.78). ast Lipid Panel Lab Results Component Value Date CHOL 171 08/30/2017 Lab Results Component Value Date HDL 27 08/30/2017 Lab Results Component Value Date LDL 110 08/30/2017 Lab Results Component Value Date TG 170 08/30/2017 No results found for: UALBCR PHARMACOTHERAPY ASSESSMENT/PLAN: 1. Uncontrolled type 2 diabetes mellitus without complication, without long-term current use of insulin (HCC) - ICD9: 250.02, ICD10: E11.65 (primary diagnosis) A1c goal < 8%, patient is not at goal (11% on 08/30/17). Due for repeat. Reported SMBGs not at goal. Patient compliant with and tolerating current regimen. Appropriate to increase glipizide at this time. Renal fxn and LFTs WNL and appropriate for continued therapy ? INCREASE glipizide XL to 10mg once daily ? CONTINUE metformin ER 1,000mg BID ? Instructed patient to start checking BGs daily ? A1c and CMP today 2. Essential hypertension - ICD9: 401.9, ICD10: I10 BP goal < [address]9216, pt is at goal on current therapy. Patient compliant with and tolerating current regimen. Will continue. Renal fxn and K+ WNL and appropriate for continued therapy. ? CONTINUE lisinopril 10mg once daily 3. Hyperlipidemia, mixed - ICD9: 272.2, ICD10: E78.2 Pt is not currently prescribed statin intensity (noted myalgia with simvastatin). indicated for high intensity d/t DM and ASCVD risk score 42%. Patient prefers not to take. Will discuss again at future visits. 4. Medication management - ICD9: V58.69, ICD10: Z79.899 ? Preventive care - patient not taking aspirin 81mg d/t taking aspirin for pain PRN - patient would benefit from aspirin 81mg for primary CVD prevention. Will discuss aspirin use again at future visits Health Maintenance issues addressed: DIABETIC FOOT EXAM due on 10/16/2016 URINE ALBUMIN CREATININE RATIO due on 06/29/2017 Patient is scheduled to see PCP 02/17/18. Patient to return to clinic for PharmD f/u on 03/10. Patient verbalized understanding of instructions. Moises Sethi, JuliethD, [facility] ALLERGIES ALLERGIES DATE TYPE / CODE NAME / CODE REACTION SEVERITY SOURCE 10/29/2018 Drug No Known Unknown [place] Allergy/416 Allergies/[id number] [facility] [id number]([facility](RXNORM) [facility] ED CT) Repository 04/18/2017 DRUG DULOXETINE OTHER: SEE C [facility] INGREDI/419 [facility] [id number](SNOM Repository ED CT) 03/06/2015 DRUG VENLAFAXINE OTHER: SEE [facility] INGREDI/419 [place] [id number](SNOM Repository ED CT) 07/05/2013 DRUG SIMVASTATIN OTHER: SEE [facility] INGREDI/419 [place] 682543(SNOM Repository ED CT) 02/27/2006 DRUG CIPROFLOXACIN [facility] INGREDI/419 [facility] [id number](SNOM Repository ED CT) ENCOUNTERS ENCOUNTERS ADMIT/DISCHARGE ACCOUNT ADMITTING ENCOUNTER LOCATION SOURCE NUMBER CLASS 11/09/2018/11/10/20 [id number] Ambulatory [address] [place] Repository 10/30/2018/11/16/20 [id number] Ambulatory [address] [place] Repository 10/29/2018/10/29/20 [id number] Emergency Mary [address] ing:ED Repository 08/19/2018/09/02/20 [id number] Ambulatory [address] [place] Repository 08/17/2018/08/17/20 [id number] Ambulatory [address] [place] Repository 05/05/2018/05/15/20 [id number] Ambulatory [address] [place] Repository 04/28/2018 [id number] Ambulatory [facility] [place] Repository 03/10/2018/03/10/20 [id number] Ambulatory [address] [place] Repository 02/27/2018/02/28/20 [id number] Ambulatory [address] [place] Repository 02/16/2018/02/18/20 [id number] Ambulatory [address] [place] Repository 02/16/2018/02/19/20 [id number] Ambulatory [address] [place] Repository 01/08/2018 [id number] Ambulatory [facility] [place] Repository 01/08/2018/01/08/20 [id number] Ambulatory [address] [place] Repository 12/03/2017 [id number] [facility] ing:PSN Repository PAYERS PAYERS ENCOUNTER GUARANTOR PAYER SUBSCRIBER SOURCE 10/29/2018 BRITNEY Hollis Primary BRITNEY Hernandez [id number] Insurance:HEALTH PLAN PIPHERDOB: [facility] [id number] Number: Repository [id number]: 330 [id number] (HP) [facility] [address], [place] [address]AM: 10/29/2018 Secondary NOT GIVENUNK [place] Insurance:SELF PAY [facility] Number: Effective Repository Date:2018-10-29 12/03/2017 Britney Hollis Primary Britney Hernandez [id number] Insurance:HEALTH PLAN PipherDOB: [facility] [id number] Number: Repository [id number]: 330 [id number] (HP) [facility] [address], [place] [address]AN: 12/03/2017 Secondary NOT GIVENUNK Mary Insurance:[facility]LF [facility]Y [facility]: Effective Repository Date:2017-11-03
--- OUTSIDE RECORDS SUMMARY | 2018-12-24 23:44 | XMS RPT_ITS | Clinical Summary ---
:1955 Author Organization [facility]ly [facility] Address [address] [place] [address] Phone Care Team Providers Name Role Phone Lisa Dias Unavailable Conditions or Problems Problem Name Problem Onset Status Entry Provider Comment Standard Annotate Code Date Date Description Back pain, [id number] Active Alem Don Lumbar lumbar, with (SNOMED 12/09 12/[address] [place] [address]) Low back pain [id number] Active Alem Don Low back pain (SNOMED 12/09 12/[address]) Medications Medication Instructions Start Stop Generic Name NDC Provider Date Date TRAMADOL HCL 50 as needed TRAMADOL HCL [id number] Tonya MG TABS /09 [place] PIOGLITAZONE HCL daily PIOGLITAZONE HCL 08077107139 Tonya 15 MG TABS /09 [place] CYCLOBENZAPRINE three times a CYCLOBENZAPRINE 38176487732 Tonya HCL 10 MG TABS HCL [place] NAPROSYN 500 MG twice daily NAPROXEN 94414063539 Alem Don TABS /09 [place] DIAZEPAM 5 MG q6h DIAZEPAM 32555257763 Tonya TABS /09 [place] METFORMIN HCL 500 METFORMIN HCL 61006584316 Tonya MG TABS / [place] VENTOLIN HFA 108 ALBUTEROL SULFATE 35237180628 Alem Don (90 Base) MCG/ACT [place] AERS LISINOPRIL 10 MG daily LISINOPRIL 38158072001 Alem Don TABS /09 [place] ASPIRIN 81 MG ASPIRIN 02215108976 Alem Don TABS /09 [place] MULTIVITAMIN MULTIPLE 25404175220 Alem Don ADULT TABS / VITAMINS-MINERALS [place] Medications Administered No information available. Allergies, Adverse Reactions, Alerts No information available. Results No information available. Plan of Care Type Date Detail Referral [facility], [address] [place] [address], [phone] Referral Physical Therapy [facility], [address] [place] [address], [phone] Pending order X-Ray, Spine, Lumbar, complete with bending views Pending order X-Ray, Femur Pending order EMG Pending order Nerve Conduction Pending order MRI Lumbar Spine Procedures No information available. Vital Signs No information available.
--- OUTSIDE RECORDS SUMMARY | 2018-12-24 23:44 | XMS RPT_ITS | Clinical Summary ---
:1955 Author Organization [facility], [facility] Address [address] [place] [address] Phone Care Team Providers Name Role Phone Peggy Diasantonia Gomez Unavailable Conditions or Problems No information available. Medications No information available. Medications Administered No information available. Allergies, Adverse Reactions, Alerts No information available. Results No information available. Plan of Care Type Date Detail Appointment 08:45 AM Alem Long, [address] [place] [address], [address], [place], [address], Procedures No information available. Vital Signs No information available.
== END 2018-10-29 22:08 | disposition home or self-care (01) ==
PROVIDERS: Emergency Provider Emergency Medicine; Family Provider Internal Medicine; PCP Internal Medicine
DX: S01.01XA Laceration without foreign body of scalp, initial encounter (principal); W00.1XXA Fall from stairs and steps due to ice and snow, initial encounter; Y93.01 Activity, walking, marching and hiking; Y92.028 Other place in mobile home as the place of occurrence of the external cause; Y99.9 Unspecified external cause status; J44.9 Chronic obstructive pulmonary disease, unspecified; E11.9 Type 2 diabetes mellitus without complications; I10 Essential (primary) hypertension; Z79.82 Long term (current) use of aspirin; Z72.0 Tobacco use
CPT/HCPCS: 12002; 70450; 99283

== ENCOUNTER 2019-09-23 14:47 | Emergency (ER) | payer OTHER, SELFPAY ==
[2019-09-23 14:48] VITALS: BP 164/90; PULSE 105; RESP 18; TEMP 36.4; O2SAT 96; BMI 38.0
[2019-09-23] MEDS: 0.9% Normal Saline 1,000 ML 125 ML IV (16:29)
[2019-09-23 16:35] LABS: Absolute Lymphocyte Count 2.02 X10^3/uL (0.83-4.51); Absolute Neutrophil Count 8.8 X10^3/uL (2.0-7.7); Basophil# 0.06 X10^3/uL; Basophil% 0.5 % (0-1); Eosinophil# 0.23 X10^3/uL; Eosinophils% 1.9 % (0-5); Hemoglobin 15.5 g/dL (13.0-16.5); Lymphocyte # 2.02 X10^3/ul (4.0); Lymphocyte % 16.7 % (19-41); Mean Corp Hgb Conc 33.7 g/dL (32-36); Mean Corpuscular Hgb 31.3 pg (27.0-32.0); Mean Corpuscular Volume 92.9 fL (80-94); Monocyte# 0.97 X10^3/uL; NRBC Flagged by Analyzer 0 % (0-5); Neutrophil # 8.79 X10^3/uL (2.7-7.7); Neutrophil % 72.6 % (47-70); Platelet Count 312 K/mm3 (150-450); RBC Distribution Width CV 12.1 % (11.6-14.6); RBC Distribution Width SD 41.5 fl (35.1-43.9); Red Blood Count 4.95 M/mm3 (4.6-6.2); White Blood Count 12.1 K/mm3 (4.4-11.0)
--- NOTE | 2019-09-23 16:38 | ED.DCSUM_ITS ---
- ER Visit Summary Date of Service: 09/23/19 Chief Complaint: Abdominal pain] History of Present Illness: The patient is a 64 M [presents to the emergency department complaint of abdominal pain since around 9:30 AM. Patient states that he had just eaten a snack at work when he started having discomfort in the upper abdomen. Patient states the pain radiates around to the right upper quadrant. Patient denies any nausea or vomiting. He denies any blood in stool he denies any diarrhea. Patient denies urinary symptoms. Patient states that he was able to eat lunch and then that seemed to make the pain worse again. Currently now the pain is down to a 5 out of 10. Patient states the pain is been continuous. Patient has had similar pain in the past related to pancreatitis. Patient has history of diabetes and hypertension. Past surgical history includes a back surgery.] Physical Examination: [HEENT-PERRLA, EOMI. Cranial nerves II through XII grossly intact. TMs clear. Mucous membranes moist. No adenopathy. Cardiovascular-regular rate and rhythm without murmur or ectopy Lungs-clear to auscultation, chest wall stable without crepitus or subcu emphysema Abdomen-normoactive bowel sounds, soft. Patient has tenderness over the epigastric region. Patient has tenderness of her right upper quadrant with positive Regan sign. There is guarding. There is no rebound, rigidity, or perineal signs. Extremities-intact ?4, normal range of motion, normal pulses, atraumatic Test Results: [CBC with differential obtained showing a 12.1, hemoglobin 15, hematocrit 46, platelets 312. Chemistries unremarkable. LFTs showed slight elevation in the ALT of 85 AST was 45. Total bili was normal 0.30. Alk phos was 97. Lipase was elevated 5945. Right upper quadrant ultrasound obtained showed a mildly dilated common bile duct of 8 mm. Patient had no cholelithiasis or evidence of cholecystitis. There was some trace adolph-cholecystic fluid.] Emergency Department Course and Treatment: [The patient denies anything for pain as he is driving himself. I recommended admission for treatment of his pancreatitis with IV fluids and pain medication. I also not clear as to the etiology of his pancreatitis and I recommended admission for further work-up and evaluation including possibly CT to evaluate for pancreatic masses and tumors. Patient is refusing admission and would like to sign out AGAINST MEDICAL ADVICE. Patient states that his brother is dying currently and he cannot be admitted. Patient understands he may return to the emergency department if symptoms should worsen anyway. Patient is advised to stick to clear liquids for the next several days. I will give him prescription for Zofran and a few [place] for pain. Patient also advised to follow-up with his primary care physician at the earliest possible time.] Treatment Plan: [.AGAINST MEDICAL ADVICE] Disposition: [Signed out AGAINST MEDICAL ADVICE] Impression: [Abdominal pain Pancreatitis] This note was generated with [email or web address] dictation software. It may contain incorrect words, spelling, and punctuation that were not noted in review of the chart prior to signing ED Disposition - Plan for ED Patient: Referrals: Amanda Gagnon MD [Primary Care Provider] -
[2019-09-23 17:03] LABS: Bacteria 0 SEEN /hpf (None Seen); Mucous, Urine 0 SEEN /hpf (<or=2+); Red Blood Cells-Urine 0 SEEN /hpf (0-5); Squamous Epithelial Cells - UA 0 SEEN /hpf (0-5); White Blood Cells 0 SEEN /hpf (0-5)
--- NOTE | 2019-09-23 17:03 | ED.RN ---
RN CALL TO LAB TO CHECK ON URINE SENT 30 MIN AGO. MARKET MAKER STATES NO URINE FOR THAT PATIENT. RN INFORMED LAB THAT IT WAS SENT IN THE SAME TUBE BUT SEPARATE BAG ANOTHER PATIENT. LAB STATES NO URINE SAMPLE. RN SENT MORE AT THIS TIME.
[2019-09-23 17:15] LABS: Color, Urine Yellow (Yellow); Glucose, Dipstick 1000 mg/dl (Normal); Ketone-Dipstick 5 mg/dl (Negative); Leukocyte Esterase-Dipstick Negative /ul (Negative); Nitrite-Dipstick Negative (Negative); Occult Blood-Urine Negative /ul (Negative); Protein-Dipstick Negative (Negative); Urine Bilirubin Dipstick Negative (Negative); Urine Clarity Clear (Clear); Urine Urobilinogen Normal (Normal)
[2019-09-23 17:17] LABS: ALB/GLOB Ratio 1.2 RATIO (0.9-2.4); AST(SGOT) 45 U/L (15-37); Alanine Aminotransfer ALT/SGPT 85 U/L (16-61); Albumin, Serum 3.8 g/dL (3.2-5.0); Alkaline Phosphatase 97 U/L (45-117); Anion Gap 5 (5-15); BUN 21 mg/dL (7-18); BUN/Creat Ratio 19.3 RATIO (10-20); Calcium,Total 9.1 mg/dL (8.5-10.1); Chloride 100 mmol/L (98-107); Creatinine, Serum 1.09 mg/dL (0.70-1.30); EST Glomerular Filtration Rate 72 mL/min (>60); Est Glom Filt Rate - Afr Amer 87 mL/min (>60); Estimated Creatinine Clearance 66.24 ml/min; Globulin 3.2 g/dL (2.2-4.2); Glucose 338 mg/dL (74-106); Lactic Acid 1.4 mmol/L (0.4-2.0); Lipase 5945 U/L (73-393); Potassium 4.3 mmol/L (3.5-5.1); Sodium Level 133 mmol/L (136-145)
--- NOTE | 2019-09-23 17:41 | US_ITS ---
STUDY: ABDOMINAL ULTRASOUND - RIGHT UPPER QUADRANT REASON FOR VISIT: Male, 64 years old abdominal pain. TECHNIQUE: Ultrasound evaluation of the right upper quadrant was performed with real-time and static candelario-scale imaging. TECHNICAL QUALITY: Adequate. COMPARISON: None. FINDINGS: Liver: The liver measures 21.4 cm. There is increased echogenicity consistent with fatty infiltration. The bile ducts are within normal limits. There is hepatic color flow. The direction of portal flow is hepatopetal. There is no demonstrated mass lesion. Gallbladder: Normal distended gallbladder. The gallbladder wall measures 3 mm. There is a negative sonographic Regan's sign. There is trace pericholecystic fluid. There are no gallstones. Common Bile Duct (C.B.D.): The common bile duct measures 8 mm. No demonstrated stones were debris in the visualized duct. Distal common duct is not seen. Pancreas: Normal size of the head, body and tail of the pancreas. There is normal echogenicity of the pancreas. There is no demonstrated pancreatic mass or cyst. Right Kidney: Normal size of the right kidney. The right kidney measures 12 x 5.2 x 5.6 cm. Normal renal cortex. The right cortex measures 1.5 cm. There is no demonstrated renal mass or cyst. There is no right hydronephrosis. US/Gallbladder IMPRESSION: 1. Mildly dilated common duct. 2. No cholelithiasis or acute cholecystitis. Trace pericholecystic fluid it is nonspecific and may reflect mild ascites. 3. Hepatic steatosis. Electronically Signed: Lin Langston MD at 18:27 EDT Tel , Service support ,
--- NOTE | 2019-09-23 18:48 | ED.DEP ---
ED Disposition - Plan for ED Patient: Instructions: Pancreatitis Prescriptions: Hydrocodone Bitart/Apap 5-325 [[place] 5MG-325MG] 1 tab PO Q4H PRN PRN 2 Days #10 tab PRN Reason: Pain Prescription Printed Ondansetron [Zofran Odt] 4 mg PO Q8H PRN PRN #10 tab PRN Reason: Nausea Prescription Printed Referrals: Amanda Gagnon MD [Primary Care Provider] - As soon as possible
[2019-09-23 19:24] VITALS: BP 144/85; PULSE 98; RESP 16; O2SAT 96
== END 2019-09-23 19:26 | disposition left against medical advice (07) ==
LOC: ED 15:59
PROVIDERS: Emergency Provider Emergency Medicine; Family Provider Internal Medicine; PCP Internal Medicine
DX: K85.90 Acute pancreatitis without necrosis or infection, unspecified (principal); R10.9 Unspecified abdominal pain; E11.9 Type 2 diabetes mellitus without complications; I10 Essential (primary) hypertension; Z79.84 Long term (current) use of oral hypoglycemic drugs; Z79.899 Other long term (current) drug therapy; Z53.29 Procedure and treatment not carried out because of patient's decision for other reasons
CPT/HCPCS: 76705; 80053; 81001; 83605; 83690; 85025; 96360; 96361; 99283; J7030; A4216

== ENCOUNTER 2020-08-23 14:58 | Emergency (ER) | payer MEDICARE, OTHER, SELFPAY ==
[2020-08-23 15:00] VITALS: BP 194/95; PULSE 122; RESP 26; TEMP 36.8; O2SAT 96; BMI 36.1
--- NOTE | 2020-08-23 15:26 | EKG12_ITS ---
Test Reason : Blood Pressure : / mmHG Vent. Rate : 126 BPM Atrial Rate : 126 BPM P-R Int : 166 ms QRS Dur : 092 ms QT Int : 312 ms P-R-T Axes : 066 066 056 degrees QTc Int : 451 ms Sinus tachycardia with occasional Premature ventricular complexes Otherwise normal ECG Confirmed by GLENIS RIVERS, LISA ([id number]), international editorial producer FLOR HOLLIDAY ([id number]) on 08/31/2020 12:53:00 P M Referred By: MARIA INES Confirmed By:ROOPA GALVIN MD
--- NOTE | 2020-08-23 15:33 | ED.DCSUM_ITS ---
History of Present Illness Chief Complaint: Ear Problem Narrative: This patient is a 65-year-old male who presents with bleeding from his left ear. He does have a history of COPD. He became ill with a URI-like illness about 1 week ago. He complained of congestion and sore throat ear pain. He states that on Friday his symptoms were severe with chest congestion wheezing and increased shortness of breath. He was recently seen in urgent care. He was prescribed azithromycin and had an order for COVID testing which he was supposed to get tomorrow. Today however he developed some bleeding from the left ear. He denies pain. He does complain of shortness of breath with exertion. He also reports low-grade fevers. No vomiting. No diarrhea. Past Medical History - Allergies and Home Meds Allergies/Adverse Reactions: Allergies No Known Allergies Allergy (Verified 08/23/20 15:03) Primary Care Physician: Amanda Gagnon MD [Primary Care Provider] - Past Medical History: - - Diabetes, hypertension, COPD Smoking Status: Current every day smoker Review of Systems All systems negative except as indicated General: Reports: Fever Eyes: Denies: Visual changes - bilaterally ENT: Reports: Left ear pain, - - Otorrhea Cardiovascular: Denies: Chest pain Respiratory: Reports: Dyspnea, Cough, Dyspnea on exertion Gastrointestinal: Reports: Diarrhea. Denies: Abdominal pain, Nausea, Vomiting Musculoskeletal: Denies: Myalgias, Arthralgias Skin: Denies: Rash Neurological: Denies: Headache Hematologic: Denies: Easy bruising Allergy: Denies: Uticaria Physical Exam Vital Signs/Narrative: Vital Signs Temp Pulse Resp BP Pulse Ox 08/23/20 15:00 98.3 F 122 H 26 H 194/95 H 96 Inital Vital Signs reviewed: Yes General: Well nourished Head: Normocephalic Eyes: EOMI ENT: Moist mucous membranes, - - Left tympanic membrane erythema with hematorrhea/otorrhea consistent with perforation Neck: Supple Cardiovascular: - - Heart is regular tachycardia Respiratory: - - Patient is tachypneic with increased work of breathing diffuse inspiratory and expiratory wheezing and bilateral rales Abdomen: Soft Extremities: Nontender Skin: Normal color Neurological: Alert Psychological: Normal affect Diagnostic/Tx/Re-eval - Medical Decision Making Patient spoke to his physician actually while he was here in the emergency department. Patient initially did not want any testing done except the COVID test he was already ordered. He wanted to have that done today to try to avoid another trip. I discussed that he has fever elevated heart rate elevated respiratory rate and I feel he should have further diagnostic work-up. [place] he refused but after discussion of risks and benefits he did agree to having blood work and x-rays performed. He was given DuoNeb and albuterol aerosols. Serum laboratory studies essentially unremarkable as above. COVID testing is pending. Chest x-ray on my review appears to show some diffuse infiltrates suggestive of COVID-19. I do not see a focal consolidation on my review. Patient is not willing to wait for any further results such as official radiology read on chest x-ray or COVID testing.. Patient is already prescribed antibiotics. Patient elected to sign out AGAINST MEDICAL ADVICE. He does understand the risk of worsening of condition sepsis organ failure permanent disability or . I will also contact the patient's primary care physician to try to arrange for close outpatient follow-up. Patient does understand he is welcome to return at any point for reevaluation and certainly should do so for any new or worsening symptoms. ED Disposition - Plan for ED Patient: Disposition: Against Medical Advice Diagnosis: COVID-19, Acute otitis media with perforated tympanic membrane Instructions: ED Otitis Media Antibiotic Treatment Adult Referrals: Amanda Gagnon MD [Primary Care Provider] -
[2020-08-23] MEDS: Ipratropium/Albuterol Sulfate 3 ML AMPUL.NEB INHALATION (15:51)
[2020-08-23] MEDS: Albuterol 2.5 MG/3 ML VIAL.NEB. INHALATION (15:51)
[2020-08-23 15:52] VITALS: PULSE 120; RESP 21; O2SAT 94
--- NOTE | 2020-08-23 15:53 | ED.RN ---
pt identified as respiratory in nature by . pt placed in echanced droplet isolation per dr's order. eleanor ramos rn [id number]
--- NOTE | 2020-08-23 16:08 | RAD_ITS ---
STUDY: X-RAY CHEST REASON FOR EXAM: Male, 65 years old. fever, increased sob (hx copd), sore throat, green drainage from nose, left ear pain. TECHNIQUE: Single AP portable view of the chest. COMPARISON: 02/28/2012. FINDINGS: The lungs are clear and expanded. There is no demonstrated pleural abnormality. Normal size heart. Normal mediastinum and susan. Normal visualized pulmonary arteries. Normal visualized aortic arch and descending thoracic aorta. Mild thoracic spondylosis. Soft tissues and bony structures are otherwise unremarkable. RAD/Chest 1 View (Portable) IMPRESSION: No acute findings. Electronically Signed: Lin Langston MD at 17:04 EDT Tel , Service support ,
[2020-08-23 16:10] LABS: Absolute Lymphocyte Count 2.28 X10^3/uL (0.83-4.51); Absolute Neutrophil Count 8.3 X10^3/uL (2.0-7.7); Basophil# 0.05 X10^3/uL; Basophil% 0.4 % (0-1); Eosinophil# 0.12 X10^3/uL; Hematocrit 44.5 % (40-54); Lymphocyte # 2.28 X10^3/ul (4.0); Lymphocyte % 18.8 % (19-41); Mean Corp Hgb Conc 33.7 g/dL (32-36); Mean Corpuscular Hgb 31.4 pg (27.0-32.0); Mean Corpuscular Volume 93.1 fL (80-94); Mean Platelet Vol. 9.2 fl (6.2-12.0); Monocyte# 1.26 X10^3/uL; Monocyte% 10.4 % (0-10); NRBC Flagged by Analyzer 0 % (0-5); Neutrophil # 8.32 X10^3/uL (2.7-7.7); Neutrophil % 68.7 % (47-70); Platelet Count 352 K/mm3 (150-450); RBC Distribution Width CV 12.1 % (11.6-14.6); RBC Distribution Width SD 41.6 fl (35.1-43.9); Red Blood Count 4.78 M/mm3 (4.6-6.2); White Blood Count 12.1 K/mm3 (4.4-11.0)
[2020-08-23 16:25] LABS: Anion Gap 7 (5-15); BUN 15 mg/dL (7-18); BUN/Creat Ratio 16.5 RATIO (10-20); Chloride 97 mmol/L (98-107); Creatinine, Serum 0.91 mg/dL (0.70-1.30); EST Glomerular Filtration Rate 89 mL/min (>60); Est Glom Filt Rate - Afr Amer 107 mL/min (>60); Glucose 291 mg/dL (74-106); Potassium 4.2 mmol/L (3.5-5.1); Sodium Level 132 mmol/L (136-145)
[2020-08-23 16:31] VITALS: BP 155/54; PULSE 127; RESP 22; O2SAT 94
[2020-08-23 17:23] VITALS: BP 142/84; PULSE 130; RESP 23; O2SAT 93
--- NOTE | 2020-08-23 17:26 | ED.RN ---
pt was unwilling to stay for result of Covid-19 or admission to [facility]. ama filled out. given pamphlet on [facility] portal for results and hospital covid disclosure form. expressed understand and left under own power with steady gait. eleanor ramos rn [id number]
[2020-08-23 18:46] LABS: Probe Check PASS; Specimen Processing Control PASS
== END 2020-08-23 17:30 | disposition left against medical advice (07) ==
PROVIDERS: Emergency Provider Emergency Medicine; PCP Internal Medicine
DX: H66.92 Otitis media, unspecified, left ear (principal); H72.92 Unspecified perforation of tympanic membrane, left ear; J44.9 Chronic obstructive pulmonary disease, unspecified; J02.9 Acute pharyngitis, unspecified; R06.02 Shortness of breath; E11.9 Type 2 diabetes mellitus without complications; I10 Essential (primary) hypertension; R19.7 Diarrhea, unspecified; F17.200 Nicotine dependence, unspecified, uncomplicated; Z79.84 Long term (current) use of oral hypoglycemic drugs; Z79.899 Other long term (current) drug therapy
CPT/HCPCS: 71045; 80048; 85025; 87635; 93005; 94640; 99283; U0003

== ENCOUNTER → 2021-05-03 14:53 | Outpatient (CLI) | payer MEDICARE, OTHER, SELFPAY ==
--- NOTE | 2021-05-03 14:55 | CT_ITS ---
STUDY: LOW DOSE CT LUNG CANCER SCREENING REASON FOR EXAM: Male, 66 years old. SMOKER,LUNG CA SCREEN. The patient smoked 1 1/2 pack of cigarettes per day for 50 years. RADIATION DOSAGE (If Supplied By Facility): CTDIvol = ( 4.02 ) mGy, DLP = ( 149.99 ) mGycm TECHNIQUE: No contrast was administered. Low dose technique was utilized (average mAS-38 and kVp 120). 1.25 mm axial source images with a slice interval of 1.25-mm were reconstructed in lung windows. 2.5 mm axial source images with a slice interval of 2.5-mm were reconstructed in lung windows. 5.0 mm axial source images with a slice interval of 5.0-mm were reconstructed in soft tissue windows. Nodule measured using lung windows on PACS and/or independent workstation with automated measurement of minimum and maximum diameter. Nodule measurement reported as average diameter rounded to the nearest whole number. Growth is defined as an increase ins size of greater than 1.5 mm. COMPARISON: Comparison is made with prior examination dated 06/01/2015. NODULES: No suspicious nodules are seen. Emphysema: Hyperinflation and mild degree of emphysematous changes. Mild degree of linear scarring in the peripheral lateral aspect of the left lower lobe. Endobronchial lesion: None Aorta: Calcific plaques at the level of the aortic arch. Coronary arteries: Coronary artery calcification. Mediastinal nodes: Calcified pretracheal lymph nodes. Calcified right hilar lymph nodes. Other chest and abdominal findings: CT/Low Dose CT Lung Screening IMPRESSION: Lung-RADS category 2 - Continue annual screening with LDCT in 12 months. IMPORTANT NOTES FOR USE: ACR Lung-RADS Version 1.1 Assessment Categories Release Date: 2018 Category: Coded 0-4 bases on nodule(s) with highest degree of suspicion. Negative screen is defined as categories 1 and 2; a positive screen is defined as categories 3 and 4. Category 3 and 4A nodules that are unchanged on interval CT should be coded as category 2, and individuals returned to screening in 12 months. Category 4X: Category 3 or 4 nodules with additional imaging findings that increase the suspicion of lung cancer, such as spiculation, GGN that doubles in size in 1 year, enlarged lymph notes, etc. Category Modifiers: S (significant finding unrelated to lung cancer) Electronically Signed: Al Langston MD at 15:44 EDT , Service support ,
== END ==
PROVIDERS: PCP Internal Medicine; Referring Provider Internal Medicine; Visit Provider Internal Medicine
DX: Z12.2 Encounter for screening for malignant neoplasm of respiratory organs (principal); Z87.891 Personal history of nicotine dependence
CPT/HCPCS: 71271

== ENCOUNTER 2023-04-14 06:42 | Emergency (ER) | payer MEDICARE, OTHER, SELFPAY ==
[2023-04-14 06:46] VITALS: BP 189/93; PULSE 107; RESP 20; TEMP 36.4; O2SAT 99; BMI 36.0
--- NOTE | 2023-04-14 07:17 | EKG12_ITS ---
Test Reason : HEMOPTOSIS Blood Pressure : / mmHG Vent. Rate : 103 BPM Atrial Rate : 103 BPM P-R Int : 204 ms QRS Dur : 086 ms QT Int : 336 ms P-R-T Axes : 080 066 056 degrees QTc Int : 440 ms Sinus tachycardia Otherwise normal ECG Confirmed by DANNA RIVERS, ETHAN ([id number]), book editor FLOR HOLLIDAY ([id number]) on 04/15/2023 8:22:53 AM Referred By: MERCEDEZ Confirmed By:ETHAN CLAY MD
--- NOTE | 2023-04-14 07:18 | ED.VIS.DYS ---
HPI History of Present Illness Chief Complaint: Cough Narrative Narrative: 68-year-old male presenting with hemoptysis. He states it was more significant last evening. He is not on any anticoagulation. Patient reports that he thinks he inhaled a gabapentin pill on . He states he stuck it in his mouth and inhaled but does not remember swallowing. He is not having any rib pain. He notices his cough started on Friday. Its been fairly persistent. No fevers, chills, body aches. He states he started having the tere sputum and then a little bit more significant blood noted today. He denies chest pain. He is mildly dyspneic but he states he smokes a carton of cigarettes a week. [facility] Medical History COPD (chronic obstructive pulmonary disease) Diabetes Home Medications lisinopril 10 mg tablet 10 mg PO DAILY 09/23/19 [History Last Taken Unknown] metformin 500 mg tablet,extended release 24 hr 2,000 mg PO DAILY 09/23/19 [History Last Taken Unknown] bupropion HCl 200 mg tablet,12 hr sustained-release 200 mg PO DAILY 04/14/23 [History Last Taken Unknown] gabapentin 300 mg capsule 300 mg PO 4X/DAY 04/14/23 [History Last Taken Unknown] umeclidinium 62.5 mcg-vilanterol 25 mcg/actuation powdr for inhalation (Anoro Ellipta) ea inhalation DAILY 04/14/23 [History Last Taken Unknown] Allergy/AdvReac Type Severity Reaction Status Date / Time No Known Allergies Allergy Verified 08/23/20 15:03 Social History Smoking Status: Current every day smoker tobacco type: cigarettes ROS ROS ED Constitutional Constitutional ED: Denies chills, fever(s) or sweats Eyes Eyes: Denies blurry vision or change in vision ENT ENT ED: Denies ear pain or sore throat Cardiovascular Cardiovascular: Denies chest pain, palpitations or racing heartbeat Respiratory/Chest Respiratory/Chest: Reports cough, dyspnea, sputum and other Details: Hemoptysis Gastrointestinal Gastrointestinal: Denies abdominal pain, constipation, diarrhea, nausea or vomiting Genitourinary Genitourinary ED: Denies dysuria, hematuria or urinary frequency Musculoskeletal Musculoskeletal: Denies arthralgias, myalgias or neck pain Integumentary Denies abscess, Abrasions or rash Neurologic Neurologic: Denies headache(s), paresthesias or weakness Psychiatric Psychiatric: Denies anxiety, depression, suicidal ideation or suicidal thoughts Endocrine Endocrinology: Denies polydipsia or polyuria EXAM Physical Exam Const Vital Signs: 04/14/23 06:46 04/14/23 06:48 Temperature 97.6 F L Temperature Source Oral Pulse Rate 107 H Respiratory Rate 20 H Respiratory Effort Normal Non-Labored Respiratory Depth Normal Respiratory Pattern Normal Blood Pressure 189/93 H Blood Pressure Mean 125 Pulse Ox 99 Oxygen Delivery Method Room Air Room Air Positive well nourished General Appearance ED: NAD HEENT Reports moist mucous membranes Eyes PERRL and EOMs intact bilaterally Neck no lymphadenopathy and supple Resp normal respiratory effort and clear to auscultation bilaterally Resp Narrative: Tachypnea Auscultation: Negative for rales, rhonchi or wheezes Cardio regular rhythm Rate: tachycardic Neuro oriented x3 and CN's II-XII intact bilaterally Sensorium / Orientation: alert Motor Exam: strength 5/5 throughout Psych mental status grossly normal Skin no wounds and skin turgor normal MDM MDM MDM Narrative Medical decision making narrative: 68-year-old male presenting with cough and some mild hemoptysis. He states been coughing since Friday but believes he inhaled a gabapentin pill on . No chest pain. Differential includes aspiration pneumonia, community-acquired pneumonia, PE, bronchitis, malignancy, ACS. Will obtain EKG because the patient is tachycardic, high-sensitivity troponin and chest x-ray will be obtained as part of a cardiac work-up and to rule out pneumonia. CBC to assess white blood cell count, CMP to assess liver function, renal function, glucose, anion gap. D-dimer obtained to rule out PE. Patient currently does not have any PE risk factors but he is tachycardic so I cannot use the PERC criteria. CBC shows a normal white blood cell count 7.9. Hemoglobin hematocrit are stable. Platelets are normal. Liver function, renal function, electrolytes all within normal limits. Glucose slightly elevated at 270 without anion gap. D-dimer is negative at 0.45. Chest x-ray my interpretation shows no acute cardiopulmonary process. Radiologist services and agrees. EKG on my interpretation showed a sinus tachycardia with a ventricular rate of 103 bpm without evidence of ischemia or ectopy. On reevaluation patient is doing well. I feel he stable for discharge. I recommended follow-up with his PCP. Impression: 1. Hemoptysis Lab Data Attestation: I reviewed the patient's lab results. Labs: Laboratory Results - last 24 hr 04/14/23 04/14/23 04/14/23 07:45 07:45 07:45 WBC 7.9 RBC 4.88 Hgb 15.4 Hct 45.6 MCV 93.4 MCH 31.6 MCHC 33.8 RDW Std Deviation 42.2 RDW Coeff of Randell 12.2 Plt Count 328 MPV 9.0 Immature Gran % (Auto) 0.400 Neut % (Auto) 49.4 Lymph % (Auto) 35.4 [place] % (Auto) 9.1 Eos % (Auto) 4.8 Baso % (Auto) 0.9 Absolute Neuts (auto) 3.9 Absolute Lymphs (auto) 2.80 Nucleated RBC % 0 D-Dimer Quant (PE/DVT) 0.45 Sodium 137 Potassium 4.2 Chloride 103 Carbon Dioxide 27.0 Anion Gap 7 BUN 17 Creatinine 0.92 Estim Creat Clear Calc 74.35 Est GFR (MDRD) Af Amer 105 Est GFR (MDRD) Non-Af 87 BUN/Creatinine Ratio 18.5 Glucose 270 H Calcium 8.9 Total Bilirubin 0.30 AST 18 ALT 49 Alkaline Phosphatase 93 Troponin I High Sens 12 Total Protein 7.0 Albumin 3.5 Globulin 3.5 Albumin/Globulin Ratio 1.0 Radiography Diagnostic Testing: Clinical Impression(s) from Imaging Studies Chest X-Ray 04/14/23 07:58 IMPRESSION: Hyperinflation. No acute abnormality is seen. Electronically Signed: Al Langston MD at 8:50 EDT , Discharge Plan Triage Chief Complaint: Cough ED Provider: Davide La Dx/Rx/DC Orders Instructions: ED Hemoptysis Prescriptions: No Action lisinopril 10 MG tablet 10 mg PO DAILY metformin 500 MG tablet extended release 24 hr 2,000 mg PO DAILY gabapentin 300 mg capsule 300 mg PO 4X/DAY Label Comments: TAKE 1 CAPSULE BY MOUTH IN THE MORNING, 1 CAPSULE WITH LUNCH AND 2 CAPSULES AT BEDTIME bupropion HCl 200 mg tablet sustained-release 12 hr 200 mg PO DAILY Label Comments: TAKE 1 TABLET BY MOUTH TWICE DAILY Anoro Ellipta 62.5-25 mcg/actuation blister with device INHALATION DAILY Label Comments: INHALE 1 PUFF BY MOUTH DIRECTED ONCE DAILY Primary Care Provider: Amanda Gagnon Referrals: Amanda Gagnon MD [Primary Care Provider] - Disposition Disposition: Home, Self Care
[2023-04-14 07:50] LABS: Absolute Neutrophil Count 3.9 X10^3/uL (2.0-7.7); Basophil# 0.07 X10^3/uL; Basophil% 0.9 % (0-1); Eosinophil# 0.38 X10^3/uL; Eosinophils% 4.8 % (0-5); Hematocrit 45.6 % (40-54); Hemoglobin 15.4 g/dL (13.0-16.5); Lymphocyte % 35.4 % (19-41); Mean Corp Hgb Conc 33.8 g/dL (32-36); Mean Corpuscular Hgb 31.6 pg (27.0-32.0); Mean Corpuscular Volume 93.4 fL (80-94); Monocyte# 0.72 X10^3/uL; Monocyte% 9.1 % (0-10); NRBC Flagged by Analyzer 0 % (0-5); Neutrophil # 3.92 X10^3/uL (2.7-7.7); Neutrophil % 49.4 % (47-70); Platelet Count 328 K/mm3 (150-450); RBC Distribution Width CV 12.2 % (11.6-14.6); RBC Distribution Width SD 42.2 fl (35.1-43.9); Red Blood Count 4.88 M/mm3 (4.6-6.2); White Blood Count 7.9 K/mm3 (4.4-11.0)
--- NOTE | 2023-04-14 07:58 | RAD_ITS ---
STUDY: X-RAY CHEST REASON FOR EXAM: Male, 68 years old. Cough and hemoptysis. TECHNIQUE: Single AP portable view of the chest. COMPARISON: Comparison is made with prior study dated August 23, 2020. FINDINGS: EKG electrodes are seen. Hyperinflation. Scattered calcified granulomas. No acute abnormality is seen. There is no demonstrated pleural abnormality. Normal size heart. Normal mediastinum and susan. Normal visualized pulmonary arteries. Normal visualized aortic arch and descending thoracic aorta. There are diffuse degenerative changes of the visualized thoracic spine. Normal visualized ribs, clavicles, and shoulders. There is no demonstrated abnormality of the visualized soft tissue structures of the upper abdomen. RAD/Chest 1 View (Portable) IMPRESSION: Hyperinflation. No acute abnormality is seen. Electronically Signed: Al Langston MD at 8:50 EDT ,
[2023-04-14 08:01] LABS: D-Dimer Quantitative (DVT/PE) 0.45 FEU/ug/m (0.27-0.49)
[2023-04-14 08:11] LABS: AST(SGOT) 18 U/L (15-37); Alanine Aminotransfer ALT/SGPT 49 U/L (16-61); Albumin, Serum 3.5 g/dL (3.2-5.0); Alkaline Phosphatase 93 U/L (45-117); Anion Gap 7 (5-15); BUN 17 mg/dL (7-18); BUN/Creat Ratio 18.5 RATIO (10-20); Calcium,Total 8.9 mg/dL (8.5-10.1); Chloride 103 mmol/L (98-107); Creatinine, Serum 0.92 mg/dL (0.70-1.30); EST Glomerular Filtration Rate 87 mL/min (>60); Est Glom Filt Rate - Afr Amer 105 mL/min (>60); Estimated Creatinine Clearance 74.35 ml/min; Globulin 3.5 g/dL (2.2-4.2); Glucose 270 mg/dL (74-106); Potassium 4.2 mmol/L (3.5-5.1); Sodium Level 137 mmol/L (136-145); Troponin-I HS 12 pg/mL (3.0-78.0)
[2023-04-14 09:25] VITALS: PULSE 103; RESP 18; O2SAT 99
== END 2023-04-14 09:27 | disposition home or self-care (01) ==
PROVIDERS: Emergency Provider Student in an Organized Health Care Education/Training Program; PCP Internal Medicine; Visit Provider Student in an Organized Health Care Education/Training Program
DX: R04.2 Hemoptysis (principal); J44.9 Chronic obstructive pulmonary disease, unspecified; E11.65 Type 2 diabetes mellitus with hyperglycemia; F17.210 Nicotine dependence, cigarettes, uncomplicated; Z79.84 Long term (current) use of oral hypoglycemic drugs; Z79.899 Other long term (current) drug therapy
CPT/HCPCS: 71045; 80053; 84484; 85025; 85379; 93005; 99284; A4216

== ENCOUNTER → 2023-05-12 | Outpatient (CLI) | payer MEDICARE, OTHER, SELFPAY ==
--- NOTE | 2023-05-12 14:53 | CT_ITS ---
STUDY: LOW DOSE CT LUNG CANCER SCREENING REASON FOR EXAM: Male, 68 years old. Current smoker. 100 pack-year history. RADIATION DOSAGE (If Supplied By Facility): CTDIvol = ( 4.02 ) mGy, DLP = ( 148.48 ) mGycm TECHNIQUE: No contrast was administered. Low dose technique was utilized (average mAS-38 and kVp 120). 1.25 mm axial source images with a slice interval of 1.25-mm were reconstructed in lung windows. 2.5 mm axial source images with a slice interval of 2.5-mm were reconstructed in lung windows. 5.0 mm axial source images with a slice interval of 5.0-mm were reconstructed in soft tissue windows. COMPARISON: 01/03/2021 NODULES: Nodule #: 1 Density: Solid Lung location: Right upper lobe: 0.1 cm from pleura Location in series: Series Number: 2 Image: 72 Size - D1 x D2 mm: 3 x 3 mm: 3 mm average diameter Margin: Smooth Shape: Round Calcification: No Fat: No Temporal comparison: Stable Total lung nodules (excluding granulomas): 1 Emphysema: Mild emphysematous changes. Endobronchial lesion: None Aorta: Atherosclerotic changes without aneurysm unchanged from prior exam. CORONARY ARTERIES: Coronary artery calcification are present Heart: Normal Pulmonary artery: Normal Mediastinal nodes: Calcified paratracheal lymphadenopathy. Other chest and abdominal findings: Degenerative changes of the thoracic spine. CT/Low Dose CT Lung Screening IMPRESSION: Lung-RADS category 2 - Continue annual screening with LDCT in 12 months. IMPORTANT NOTES FOR USE: ACR Lung-RADS Version 1.1 Assessment Categories Release Date: 2018 Category: Coded 0-4 bases on nodule(s) with highest degree of suspicion. Negative screen is defined as categories 1 and 2; a positive screen is defined as categories 3 and 4. Category 3 and 4A nodules that are unchanged on interval CT should be coded as category 2, and individuals returned to screening in 12 months. Category 4X: Category 3 or 4 nodules with additional imaging findings that increase the suspicion of lung cancer, such as spiculation, GGN that doubles in size in 1 year, enlarged lymph notes, etc. Category Modifiers: S (significant finding unrelated to lung cancer) Electronically Signed: Jorge Grande DO at 23:17 EDT Reading Location ID and State: [facility] / [place] Tel [phone], Service support ,
== END | disposition home or self-care (01) ==
LOC: CT 14:48
PROVIDERS: PCP Internal Medicine; Referring Provider Internal Medicine; Visit Provider Internal Medicine
DX: F17.200 Nicotine dependence, unspecified, uncomplicated (principal); J44.9 Chronic obstructive pulmonary disease, unspecified; Z12.2 Encounter for screening for malignant neoplasm of respiratory organs
CPT/HCPCS: 71271